=== PATIENT | male | born 1990 | race Caucasian/White ===

== ENCOUNTER 2024-05-10 10:42 | Outpatient (AMB) | payer BC, SELFPAY ==
--- NOTE | 2024-05-10 11:09 | A.OFFVIS_ITS ---
Vital Signs 05/10/24 11:24 Height 5 ft 4 in BMI Reason not done Patient refused/unable BP 115/70 Blood Pressure Location Lt brachial Position Sitting Respiration 18 Pulse 91 Pulse Source Pulse Oximeter Pulse Oximetry (%) 99 Oxygen Delivery Method Room Air Intake Visit Reasons: RA/ATC MR RECIEVED Intake Note: Patient presents for RA. bilateral pain on thumbs and bilateral elbow pain. Both wrist and elbows have been stiff in the am. Allergies cefaclor [From Ceclor] Allergy (Mild, Verified 05/10/24 11:16) Hives cefuroxime Allergy (Mild, Verified 05/10/24 11:15) Hives penicillin Allergy (Mild, Uncoded 05/10/24 11:15) Hives Medication List - Last Reviewed 05/10/24 by SARAH Troncoso acetaminophen (Tylenol Extra Strength) 500 mg PO QID PRN adalimumab (Humira(CF) Pen) 40 mg (0.4 mL) subcut Q14D cetirizine (Zyrtec) 10 mg PO DAILY PRN cholecalciferol (vitamin D3) 50 mcg PO DAILY famotidine 40 mg PO BID fexofenadine (Sabrina Allergy) 60 mg PO DAILY folic acid 1 mg PO DAILY hydroxyzine HCl 25 mg PO ONCE ibuprofen 200 mg PO Q6H PRN methotrexate sodium 20 mg PO QWEEK metronidazole 0.75% 1 appl topical DAILY ondansetron 4 mg PO Q6H PRN HPI HPI RA/ATC MR RECIEVED: Details: Last month he saw Dr. Castillo [facility] who aspirated his right knee. Synovial fluid studies were sent for cell count and crystal analysis. He reports that no gout was found. During this visit methotrexate was increased from 6 tablets once weekly to 8 tablets once weekly. He has found improve joint relief with increased dose. However, has noted that he has had tonsil stones daily, which was a rare occurrence in the past with only 2 prior to increasing methotrexate dose. He has intermittent ear pain and pain around the area of his tonsils. He had to urgent care visits that reported that he had fluid in his ears. No antibiotic was prescribed. He denies fevers, feeling fatigue, cough, dyspnea, new rash. [facility] Family History (Updated 05/10/24 @ 11:31 by SARAH Troncoso) Brother Mustapha-Danlos syndrome Social History (Updated 05/10/24 @ 11:30 by Heidi Jaffe [facility]) Household Members: Spouse Housing: House Alcohol intake: never Patient Tobacco Use Status: Never used Tobacco Review of Systems Const All systems reviewed & are unremarkable except as noted in HPI and below Physical Exam Vital Signs: Last Vital Signs Pulse 91 05/10/24 11:24 Resp 18 05/10/24 11:24 BP 115/70 05/10/24 11:24 Pulse Ox 99 05/10/24 11:24 Oxygen Delivery Method Room Air 05/10/24 11:24 Const Other: General: Comfortable CVS: RRR Respiratory: clear to auscultation bilaterally. Good respiratory effort Skin: No lesions seen MSK: Tender left lateral epicondyle without pain in elbow with resisted wrist flexion or extension. He also has synovitis of his left elbow with full range of motion. Tender left 1st MCP and IP with synovitis present. Rest of joints are nontender with good range of motion. Assessment & Plan Assessment & Plan (1) Rheumatoid arthritis: Comment: Better controlled with increasing methotrexate but he has had increasing ear pain and tonsil stones occurred daily, which is concerning. He had to urgent care evaluations and reports a physical exam finding of ear in his fluid but has not been treated for an infection. I have asked him to contact PCP to consider antibiotic in treatment for otitis media if appropriate. RA is not in remission at this time. We discussed add on therapy. Discussed treatment options with conventional DMARDs and TNF inhibitor. He prefers Humira over conventional DMARDs. Treatment with Humira is indicated for further control of RA. We discussed side effects, benefits and drug monitoring on Humira. Patient had concerns of past history of fevers, joint pain, feeling unwell with last fever a year ago. He was concerned about a Henry periodic syndrome. I recommended that if he has fevers, document time of day that he is having the fever as well as T-max and associated symptoms. We will then consider further evaluation if needed at that time. Since he has not had any fever in over a year, no further workup is necessary at this time. Code(s): M06.9 - Rheumatoid arthritis, unspecified Category: Medical Plan: He will try reducing dose of methotrexate to 17.5 mg once weekly for the next 2 weeks. If no improvement with reducing tonsil stone frequency, we will have to reduce methotrexate back to 15 mg once weekly. Humira PA. We will start Humira after he has PCP evaluation for ear pain and tonsil stones. Requesting labs done [facility] last month Labs ordered for monitoring on high-risk medication for next month. Patient prefers to have labs done locally to his home. Return to clinic in 3 months (2) Other ferry terminal agent (current) drug therapy: Code(s): Z79.899 - Other ferry terminal agent (current) drug therapy Category: Medical Plan: See above Orders: Orders Aspartate Amino Transferase 1 Month M06.9 - Rheumatoid arthritis, unspecified, Z79.899 - Other retirement (current) drug therapy Complete Blood Count Auto Diff 1 Month M06.9 - Rheumatoid arthritis, unspecified, Z79.899 - Other retirement (current) drug therapy Alanine Aminotransferase 1 Month M06.9 - Rheumatoid arthritis, unspecified, Z79.899 - Other ferry terminal agent (current) drug therapy C Reactive Protein 1 Month M06.9 - Rheumatoid arthritis, unspecified, Z79.899 - Other retirement (current) drug therapy Erythrocyte Sedimentation Rate 1 Month M06.9 - Rheumatoid arthritis, unspecified, Z79.899 - Other ferry terminal agent (current) drug therapy Creatinine 1 Month M06.9 - Rheumatoid arthritis, unspecified, Z79.899 - Other retirement (current) drug therapy Medications: New adalimumab (Humira(CF) Pen) Inject once SC every 14 days New PA needed. 40 mg (0.4 mL) subcut Q14D 2 ea 2RF Coding Level of Care Code Est Pt Level 5 (22340) Complex EM visit Add On G2211 Diagnoses Rheumatoid arthritis M06.9 Other retirement (current) drug therapy Z79.899 Time Spent (min) 40
[2024-05-10 11:24] VITALS: BP 115/70; PULSE 91; RESP 18; O2SAT 99
== END 2024-05-10 12:23 | disposition home or self-care (01) ==
PROVIDERS: PCP Registered Nurse; Visit Provider Internal Medicine Rheumatology
DX: M06.9 Rheumatoid arthritis, unspecified (principal); Z79.899 Other long term (current) drug therapy
CPT/HCPCS: 99215

== ENCOUNTER → 2024-06-23 09:02 | Outpatient (BNVA) | payer BC, SELFPAY | PROVIDERS: PCP Registered Nurse; Visit Provider Internal Medicine Rheumatology ==

== ENCOUNTER 2024-08-09 10:03 | Outpatient (AMB) | payer BC, SELFPAY ==
--- NOTE | 2024-08-09 10:04 | MHC.OFFVIS ---
Vital Signs 08/09/24 10:05 Height 5 ft 4 in BP 150/80 H Blood Pressure Location Lt brachial Position Sitting Pulse 79 Pulse Source Pulse Oximeter Pulse Oximetry (%) 99 Oxygen Delivery Method Room Air Comment pt refused Intake Visit Reasons: Follow Up 3mo Intake Note: Patient presents today for RA follow up Front Desk Auxiliary Required: No Accompanied by: Self / Same As Patient Allergies cefaclor [From Ceclor] Allergy (Mild, Verified 08/09/24 10:05) Hives cefuroxime Allergy (Mild, Verified 08/09/24 10:05) Hives penicillin Allergy (Mild, Uncoded 05/10/24 11:15) Hives HPI HPI Follow Up 3mo: Details: He has discomfort right ear likely secondary to tonsil stones. He has an upcoming appointment with ENT in August. Doing more sewing. Less swelling in hands. MS 0 min. Humira started 06/23/2024- On MTX 15mg once weekly and FA daily While on methotrexate he reports his eczema has resolved. He was diagnosed with eczema from his PCP's who has a special interest in Dermatology. He was managed by a sales and marketing representative for eczema but at 1 point also question psoriasis. He has never had a biopsy. It affects his palms. PFSH Family History Brother Mustapha-Danlos syndrome Social History Household Members: Spouse Housing: House Alcohol intake: never Patient Tobacco Use Status: Never used Tobacco Review of Systems Const All systems reviewed & are unremarkable except as noted in HPI and below Physical Exam Vital Signs: Last Vital Signs Pulse 79 08/09/24 10:05 BP 150/80 H 08/09/24 10:05 Pulse Ox 99 08/09/24 10:05 Oxygen Delivery Method Room Air 08/09/24 10:05 Const Other: General: Comfortable CVS: RRR Respiratory: clear to auscultation bilaterally. Good respiratory effort Skin: No lesions seen MSK: Chronic synovial thickening left 2nd MCP without tenderness on palpation. Left hand post exchange manager is stronger than right handgrip. No synovitis on elbows. full range of motion of upper extremities. Lower extremity range of motion is normal. No ankle or MTP tenderness. Assessment & Plan Assessment & Plan (1) Rheumatoid arthritis: Comment: Better controlled with increasing methotrexate but he has had increasing ear pain and tonsil stones. Methotrexate dose has been reduced to 15 mg once weekly. With addition of Humira he has had improvement in resolution of synovitis in his elbows and increased function with his hands. Rheumatology history: Seronegative inflammatory arthritis. He reports being diagnosed with eczema resolved on methotrexate. I am questioning if he had psoriasis, which was also question by sales and marketing representative he is on the past. MTX 12/2023- dose increased to 20 mg Q weekly caused tonsillar stones with infection. Methotrexate was then reduced to 15 mg once weekly 07/2024. Humira 06/23/2024- Code(s): M06.9 - Rheumatoid arthritis, unspecified Category: Medical Qualifiers: Rheumatoid arthritis location: multiple sites Rheumatoid factor presence: without rheumatoid factor Qualified Code(s): M06.09 - Rheumatoid arthritis without rheumatoid factor, multiple sites Plan: Continue Humira every other week Continue methotrexate 15 mg once weekly He will be following up with ENT for evaluation and management of tonsillar stones in August Labs for drug monitoring on high-risk medication ordered Return to clinic in 3 months (2) Other buttermaker continuous churn (current) drug therapy: Code(s): Z79.899 - Other retirement (current) drug therapy Category: Medical Plan: See above (3) Transaminitis: Code(s): R74.01 - Elevation of levels of liver transaminase levels Category: Medical Plan: Repeating liver function tests in 1 month Continue methotrexate 15 mg once weekly Continue Humira every other week Orders: Orders Aspartate Amino Transferase Today Z79.60 - parts counterman (current) use of unspecified immunomodulators and immunosuppressants Complete Blood Count Auto Diff Today Z79.60 - halfway (current) use of unspecified immunomodulators and immunosuppressants C Reactive Protein Today M06.9 - Rheumatoid arthritis, unspecified, Z79.899 - Other retirement (current) drug therapy Erythrocyte Sedimentation Rate Today M06.9 - Rheumatoid arthritis, unspecified, Z79.899 - Other buttermaker continuous churn (current) drug therapy Alanine Aminotransferase Today Z79.60 - halfway (current) use of unspecified immunomodulators and immunosuppressants Creatinine Today Z79.60 - halfway (current) use of unspecified immunomodulators and immunosuppressants Liver Panel 1 Month R74.01 - Elevation of levels of liver transaminase levels Medications: Changed From adalimumab (Humira(CF) Pen) Inject once SC every 14 days. Call [facility] to schedule teaching visit with nurse for 1st dose administration. 40 mg (0.4 mL) subcut Q14D 2 ea 2RF To adalimumab (Humira(CF) Pen) Inject once SC every 14 days. 40 mg (0.4 mL) subcut Q14D 2 ea 2RF Coding Level of Care Code Est Pt Level 4 (97917) Complex EM visit Add On G2211 Diagnoses Rheumatoid arthritis of multiple sites with negative rheumatoid factor M06.09 Rheumatoid arthritis location: multiple sites Rheumatoid factor presence: without rheumatoid factor Other buttermaker continuous churn (current) drug therapy Z79.899 Transaminitis R74.01
[2024-08-09 10:05] VITALS: BP 150/80; PULSE 79; O2SAT 99
--- OUTSIDE RECORDS SUMMARY | 2024-08-09 11:42 | XMS_ITS | Referral Summary ---
Author Organization [facility] Address [address] [place] [address] Care Team Providers Care Rotary Drier Operator Name Role Phone Lisset Diez COMMUNITY CENTER COORDINATOR Primary Care Provider [phone] Allergies Active Allergy Reactions Criticality Noted Date Comments Albuterol Palpitations High 02/01/2020 Other reaction(s): Myositis Cefaclor Hives 05/28/2022 Cephalexin Hives High 02/01/2020 Penicillins Hives High 07/01/2019 Sulfa (Sulfonamide Antibiotics) Hives High 02/01/2020 Medications acetaminophen (TYLENOL) 500 mg tablet Take 500 mg by mouth every 6 hours as needed. Active betamethasone dipropionate (DIPROSONE) 0.05 % cream SMARTSIG:spari ngly Topical Daily 3 Active cetirizine (ZyrTEC) 10 mg tablet Take 10 mg by mouth daily. Active diclofenac (VOLTAREN) 50 mg EC tablet SMARTSI Tablet(s) By Mouth Twice Daily PRN 3 Active famotidine (PEPCID) 40 mg tablet SMARTSI Tablet(s) By Mouth Twice Daily Active fluticasone propionate (FLONASE) 50 mcg/actuation nasal spray Administer 1 spray into affected nostril(s) daily. Active hydrOXYzine HCL (ATARAX) 25 mg tablet TAKE 1 TABLET BY MOUTH UP TO THREE TIMES PER DAY NEEDED FOR ANXIETY FOR 28 DAYS 3 Active ibuprofen (MOTRIN) 200 mg tablet Take 200 mg by mouth every 6 hours as needed. Active minoxidiL 5 % foam Apply topically to the affected area daily. 3 Active ondansetron (ZOFRAN ODT) 4 mg disintegrating tablet DISSOLVE 1 TABLET ON THE TONGUE TWICE DAILY FOR 14 DAYS NEEDED 2 Active testosterone undecanoate (Aveed) solution IM injection Inject 750 mg into the shoulder, thigh, or buttocks muscle as directed. 3 Active Social History Tobacco Use Types Packs/Day Years Used Date Smoking Tobacco: Never Smokeless Tobacco: Never Alcohol Use Standard Drinks/Week Comments Never 0 (1 standard drink = 0.6 oz pur e alcohol) Sex and Gender Information Value Date Recorded Sex Assigned at Not on file Legal Sex Male 8:38 AM EDT Gender Identity Not on file Sexual Orientation Not on file Last Filed Vital Signs Vital Sign Reading Time Taken Comments Blood Pressure - - Pulse - - Temperature - - Respiratory Rate - - Oxygen Saturation - - Inhaled Oxygen Concentration - - Weight 61.2 kg (135 lb) 01/28/2023 12:18 PM EDT Height 162.6 cm (5' 4 ) 01/28/2023 12:18 PM EDT Body Mass Index 23.17 01/28/2023 12:18 PM EDT Plan of Treatment Not on file Insurance BCBS OUT OF STATE PPO Care Teams Rotary Drier Operator Relationship Specialty Start Date End Date Lisset Diez NP [address] [place] [address] PCP - General 11/11/22
--- OUTSIDE RECORDS SUMMARY | 2024-08-09 11:42 | XMS_ITS | Clinical Summary ---
Author Organization [facility] Address [address] [place] [address] Care Team Providers Care Muck Miner Blasting Name Role Phone Lisset Diez STAFFING MANAGER Primary Care Provider [phone] Allergies Active Allergy Reactions Criticality Noted Date [...] or buttocks muscle as directed. 3 Active Family History Relation Name Status Comments Father Alive Mother Alive Social History Tobacco Use Types Packs/Day Years [...] 01/28/2023 12:18 PM EDT Plan of Treatment Health Maintenance Due Date Last Done Comments HIV Screening 1991 Hepatitis C Screening 1991 Varicella Vaccines (1 of 2 - 13+ 2-dose series) 2004 COVID-19 Vaccine ( - season) 2024 02/28/2022, 04/26/2021, 08/15/2020, Additional history exists Influenza Vaccine (#1) 2024 2, 04/26/2021, 03/20/2020, Additional history exists Alcohol/Substance Use Screening 06/15/2024 Depression Screening and Follow-Up 06/15/2024 Social Drivers of Health Annual Screening 06/15/2024 DTaP,Tdap,and Td Vaccines (9 - Td or Tdap) 08/27/2028 08/27/2018, 06/15/2011, 09/06/2008, Additional history exists RSV Vaccine (60+ years old and patients) (1 - 1-dose 75+ series) 2066 Hepatitis B Vaccines Completed 03/10/2001, 09/29/2000, 08/24/2000 Pneumococcal Vaccine: Pediatric (0-5 Years) and At-Risk Patients (6-50 Years) Aged Out No longer eligible based on patient's age to complete this topic Insurance BCBS OUT OF STATE PPO Care Teams Muck Miner Blasting Relationship Specialty Start Date End Date Lisset Diez NP [address] [place] [id number] PCP - General 11/11/22
--- OUTSIDE RECORDS SUMMARY | 2024-08-09 11:43 | XMS_ITS | Continuity of Care Document ---
Author Organization [facility], Physical Therapy, [facility] Address [address] [place] [address] Care Team Providers Care Bell Tier Name Role Phone GAURAV NOBLES Word Processor Operator HADLEY PHAN Certified Juvenile Probation Officer KEVIN ARNOLD Word Processor Operator [facility] Bioinformatics Developer [phone] ARISTEO PRATHER Mural Painter [phone] JORGE GODINEZ Word Processor Operator [phone] KEVIN ELLISON Primary Care Provider Assessment Encounter Date Assessment Date Assessment LastModified by Organization Details LastModified Time 07/29/2024 07/29/2024 OT visit # 8 Discharge Note A: Pt is a 33 year old referred to outpatient occupational therapy by Jennifer Diez NP with signs and symptoms consistent with: RA pain joints hands/wrists; hypermobility, recent onset of pain L lateral epicondyle Good progress overall in OT, joint pain low, started on new medication for RA; + MF testing; recommend loop scissors, re-fabricated R thumb stability splint for artwork. Will use R splint and continue with L elbow exercises at home and will contact OT w/ new referral if needed. Functional limitations include: decreased ability to lift/carry while caring for chickens/dogs/ca ts at home Response to treatment: good Goals: STG/LTG Time to Achieve Goal Progress per IE Comment STG 4 weeks Decrease pain to 2/10 max during ADL new STG 4 weeks Increase R elbow to 0 degrees extension new STG 4 weeks Independent knowledge of joint stability patterns during ADL new LTG 8 weeks new LTG 8 weeks new LTG 8 weeks Independent in comprehensive HEP. new Treatments may include (as appropriate/as indicated): Therapeutic exercise/Neuromu scular Reeducation/Ther apeutic Activities/ROM, flexibility, endurance, power, functional mechanics/postur es/activities; coordination/mot or planning/motor control; balance; proprioception; stability; self care/ADL management; home exercise instruction; modalities; taping; orthotics/splint fabrication/dee dee tamiko/management мария Not available 07/29/2024 15:01:46 Plan of Treatment Reminders Order Date Submit Date Provider Last Modified By Organization Details Last Modified Time Details Appointments Follow Up, 2024 01:45P M JENAE MarksP Not available Not available Not available Follow Up, 2024 09:00A M Kevin Ellison TARGET NETWORK ANALYST Not available Not available Not available Wellness Visit 2024 11:15A M Kevin Ellison TARGET NETWORK ANALYST Not available Not available Not available Lab None recorded. Referral None recorded. Procedures None recorded. Surgeries None recorded. Imaging None recorded. Medication Orders None recorded. Patient TargetsNo targets recorded. Patient Instructions Encounter Date Encounter Id Patient Instructions Last Modified By Organization Details Last Modified Time 07/29/2024 [id number] Access Code: [email or web address] URL: [email or web address] Date: 02/28/2024 Prepared by: Britt Parra Exercises - 4 Forearm Stretches - 2-3 x daily - 7 x weekly - 1 sets - 2 reps - 45 sec hold Access Code: [email or web address] URL: [email or web address] Date: 03/11/2024 Prepared by: Britt Parra Exercises - Thumb Strengthening Stabilization CMC - 1 x daily - 7 x weekly - 3 sets - 10 reps - 4 Forearm Stretches - 2-3 x daily - 7 x weekly - 1 sets - 2 reps - 45 sec hold - Thumb Strengthening Stabilization CMC - 1 x daily - 7 x weekly - 3 sets - 10 reps Access Code: [email or web address] URL: [email or web address] Date: 04/01/2024 Prepared by: Britt Parra Exercises - Thumb Strengthening Stabilization CMC - 1 x daily - 7 x weekly - 3 sets - 10 reps - Thumb Strengthening Stabilization CMC - 1 x daily - 7 x weekly - 3 sets - 10 reps - Thumb Strengthening Stabilization CMC First Dorsal Interossei - 1 x daily - 7 x weekly - 3 sets - 10 reps - Isometric Wrist Extension Pronated - 1 x daily - 7 x weekly - 3 sets - 10 reps - Seated Isometric Wrist Flexion Supinated with Manual Resistance - 1 x daily - 7 x weekly - 3 sets - 10 reps - Seated Isometric Forearm Supination - 1 x daily - 7 x weekly - 3 sets - 10 reps - Isometric Wrist Pronation - 1 x daily - 7 x weekly - 3 sets - 10 reps - Isometric Finger Flexion - 1 x daily - 7 x weekly - 3 sets - 10 reps - Seated Isometric Finger MP Extension - 1 x daily - 7 x weekly - 3 sets - 10 reps мария Not available 07/29/2024 10:17:22 Reason for Referral None Reported. Problems Name Problem SNOMED Code Status Onset Date Resolution Date Notes Provider Name and Address Organization Details Recorded Time Disorder of endocrine system 897053754 Active Transgende r. Pap/HPV negative ( 9). Lisset Diez NP [address] [place] [address] [place], [address], [facility] 3 12:12:10 Elevated blood-pres sure reading without diagnosis of hypertensi on 160597552 Active 2017 Carissa Sacnhez MD [address] [place] [address] [place], [address], [facility] 8 11:33:54 Eating disorder 72015411 Active 2017 Carissa Sanchez MD [address] [place] [address] [place], [address], [facility] 8 11:33:57 Anxiety 72516936 Active 2018 Lisset Diez NP [address] [place], [address], [facility] 3 08:43:53 Gastroesop hageal reflux disease 205436015 Active 2021 Mercedes Denton PA-C [address] [place] [address] Kishore grubbs, LUCI[place], [address], [facility] 2 13:21:24 Chronic gastritis 9918930 Active 2022 Dx on EGD Lisset Diez, [employer]ER [address] [place] [address], Kishore grubbs, [place], [address], [facility] 3 09:08:48 Eczema 99953147 Active 2022 Whole life using triamcinol one cream Lisset Diez NP [address] [place] [address], Kishore grubbs, [place], [address], [facility] 3 09:50:07 Hiatal hernia with gastroesop hageal reflux 815995418 Active 2022 Lisset Diez NP [address] [place] [address], Kishore grubbs, [place], [address], [facility] 3 13:41:58 Disorder of connective tissue 347152468 Active 2023 Maryam Diez DO [address] [place] [address] [place], [address], [facility] 4 14:09:58 Rheumatoid arthritis 54616046 Active 2023 Kevin Ellison [address] [place], [address], [facility] 4 13:25:16 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 Procedures Surgical History Date Name Laterality Status Provider Name and Address Organization Details Recorded Time 04/15/20 77452: Therapeutic Exercise completed RAIZA Milligan/L, [address], [address], [facility] 04/15/2024 11:13:30 04/15/20 68018: Therapeutic Activities - Direct 1:1 completed Britt Parra OTR/L, CHT [address] [place], [address], [facility] 04/15/2024 11:13:30 04/08/20 88194: Therapeutic Exercise completed Britt Parra, OTR/L, CHT [address] [place], [address], [facility] 04/08/2024 12:02:39 04/08/20 22743: Therapeutic Activities - Direct 1:1 completed Britt Linderitelli, OTR/L, CHT [address] [place], [address], [facility] 04/08/2024 12:02:56 04/01/20 09800: Therapeutic Exercise completed Britt Parra, OTR/L, CHT [address] [place], [address], [facility] 04/01/2024 10:36:29 04/01/20 19507: Manual Therapy completed Britt Parra, OTR/L, CHT [address] [place], [address], [facility] 04/01/2024 10:36:29 03/11/20 90059: Therapeutic Exercise completed Britt Parra, OTR/L, CHT [address] [place], [address], [facility] 03/11/2024 09:59:58 03/11/20 42481: Manual Therapy completed Britt Linderitemariaelenai, OTR/L, CHT [address] [place], [address], [facility] 03/11/2024 09:59:58 03/04/20 40506: Therapeutic Exercise completed Britt Parra, OTR/L, CHT [address] [place], [address], [facility] 03/04/2024 10:42:06 03/04/20 37680: Manual Therapy completed Britt Linderitelli, OTR/L, CHT [address] [place], [address], [facility] 03/04/2024 10:42:03 02/26/20 24 Smoking Cessation Counselling completed Britt Parra OTR/L, CHT [address] [place], [address], [facility] 02/25/2024 22:34:40 02/26/20 24 Physical Activity Counselling completed Britt Parra OTR/L, CHT [address] [place], [address], [facility] 02/25/2024 22:34:40 02/26/20 24 97214: OT Eval, Low Complexity completed Britt Parra OTR/L, CHT [address] [place] [address], [address], [facility] 02/25/2024 22:34:40 02/19/20 24 83555: Therapeutic Exercise completed Lisset Fontana DPT [address] [place] [address], [address], [facility] 02/19/2024 10:34:54 02/19/20 24 82509: Manual Therapy completed Lisset Fontana DPT [address] [place] [address], [address], [facility] 02/19/2024 10:34:54 02/19/20 24 Neuromuscular re-education completed Lisset Fontana DPT [address] [place] [address], [address], [facility] 02/19/2024 10:34:54 02/19/20 24 Treatment and Advice completed Lisset Fontana DPT [address] [place] [address], [address], [facility] 02/19/2024 10:34:54 02/09/20 24 39490: Therapeutic Exercise completed Lisset Fontana DPT [address] [place] [address], [address], [facility] 02/09/2024 10:11:32 02/09/20 24 31579: Manual Therapy completed Lisset Fontana DPT [address] [place], [address], [facility] 02/09/2024 10:10:58 02/09/20 24 Neuromuscular re-education completed Lisset Fontana DPT [address] [place], [address], [facility] 02/09/2024 10:11:02 02/09/20 24 Treatment and Advice completed Lisset Fontana DPT [address] [place], [address], [facility] 02/09/2024 10:09:07 02/02/20 24 68761: Therapeutic Exercise completed Lisset Fontana DPT [address] [place], [address], [facility] 02/07/2024 23:13:01 02/02/20 24 70054: Manual Therapy completed Lisset Fontana DPT [address] [place], [address], [facility] 02/07/2024 23:14:16 02/02/20 24 Neuromuscular re-education completed Lisset Fontana DPT [address] [place], [address], [facility] 02/07/2024 23:12:57 02/02/20 24 Treatment and Advice completed Lisset Fontana DPT [address] [place], [address], [facility] 02/07/2024 23:12:25 01/26/20 24 78959: Therapeutic Exercise completed Lisset Fontana DPT [address] [place], [address], [facility] 01/26/2024 11:07:53 01/26/20 24 01395: Manual Therapy completed Lisset Fontana DPT [address] [place], [address], [facility] 01/26/2024 11:07:34 01/26/20 24 Neuromuscular re-education completed Lisset Fontana DPT [address] [place], [address], [facility] 01/26/2024 11:07:44 01/26/20 24 Treatment and Advice completed Lisset Fontana DPT [address] [place], [address], [facility] 01/26/2024 11:07:21 01/19/20 24 36669: Therapeutic Exercise completed Lisset CEZAR Fontana [address] [place], [address], [facility] 01/22/2024 10:12:08 01/19/20 24 73733: Manual Therapy completed Lissetreyes Fontana DPT [address] [place], [address], [facility] 01/22/2024 10:12:39 01/19/20 24 Treatment and Advice completed Lissetreyes Fontana DPT [address] [place], [address], [facility] 01/22/2024 10:12:05 Imaging Results None recorded. Procedure Notes None recorded. Medical Equipment None Reported. Allergies Allergen ID Allergen Name Allergen Category Reaction Reaction Severity Criticality Documentation Date Start Date Code Code System Note Provider Name and Address Organization Details Recorded Time 338600 Product containin g penicilli n (product) medicatio n hives Not available Not available 07/31/2014 03726 8001 SNOMED Katt Christiansen MA [facility] 5 08:53:35 540831 amoxicill in medicatio n hives Not available Not available 07/31/2014 723 RxNorm Katt Christiansen MA [facility] 5 08:53:35 534851 Ceftin medicatio n hives Not available Not available 07/31/2014 52862 6 RxNorm Katt Christiansen MA [facility] 5 08:53:35 705409 Ceclor medicatio n hives Not available Not available 07/31/201402798 5 RxNorm Katt Christiansen MA [facility] 5 08:53:35 150381 albuterol medicatio n tachycard ia moderate Not available 03/21/2020 435 RxNorm back spasm s Larisa Ervin LPN [facility] 0 08:24:58 710695 Substance with sulfonami de structure and antibacte rial mechanism of action (substanc e) medicatio n Not available Not available Not available 03/15/2024 25267 8003 SNOMED ? as child Brenda Toth, RMA rosalinda, [facility] 4 11:26:10 Medications Name Sig Start Date Stop Date Status Note LastModified by Organization Details LastModified Time cyclobenz aprine 10 mg tablet TK 1 T PO TID FOR 7 DAYS 10/29 completed Not Available Not Available Not Available ivermecti n 3 mg tablet active Not Available Not Available Not Available cromolyn 100 mg/5 mL oral concentra te 05/06 completed Jose Francisco whelan --- 4 not currentl y, may in future Not Available Not Available Not Available prednison e 10 mg tablet 12/02 completed Not Available Not Available Not Available desoximet asone 0.25 % topical cream PLEASE SEE ATTACHED FOR DETAILED DIRECTIO NS active Not Available Not Available No t Available BD Insulin Syringe 1 mL 25 x 1 05/24 completed Not Available Not Available Not Available azithromy tierney 250 mg tablet TAKE 2 TABLETS BY MOUTH TODAY, THEN TAKE 1 TABLET DAILY FOR 4 DAYS 12/13 completed Not Available Not Available Not Available acetazola mide ER 500 mg capsule,e xtended release TAKE 1 CAPSULE BY MOUTH EVERY DAY 02/06 completed Not Available Not Available Not Available ofloxacin 0.3 % eye drops INSTILL 10 DROPS INTO AFFECTED EAR TWICE A DAY FOR 7 DAYS 08/29 completed Not Available Not Available Not Available benzonata te 200 mg capsule TK 1 C PO TID FOR 10 DAYS PRN 02/17 completed not usinfg 0 [facility] Not Available Not Available Not Available valacyclo vir 1 gram tablet Take 1 tablet every 8 hours by oral route for 7 days. 10/05 completed Not Available Not Available Not Available hydrocodo ne 5 mg-acetam inophen 325 mg tablet TAKE 1 TABLET BY MOUTH EVERY 4 - 6 HOURS NEEDED FOR PAIN MAY CAUSE DROWSINE SS 04/29 completed Not Available Not Available Not Available fluconazo le 200 mg tablet TAKE 1 TABLET BY MOUTH EVERY WEEK active Not Available Not Available No t Available sucralfat e 1 gram tablet TAKE 1 TABLET BY MOUTH 2-4 TIMES A DAY ON EMPTY STOMACH 05/25 completed not taking Not Available Not Available Not Available famotidin e 40 mg tablet TAKE 1 TABLET BY MOUTH TWICE A DAY active Not Available Not Available No t Available prednison e 20 mg tablet TAKE 2 TABLETS BY MOUTH DAILY FOR 2 DAYS 11/07 completed Not Available Not Available Not Available prednison e 5 mg tablet PLEASE SEE ATTACHED FOR DETAILED DIRECTIO NS 03/15 completed Not Available Not Available Not Available pimecroli mus 1 % topical cream 10/05 completed Not Available Not Available Not Available topiramat e 25 mg tablet 08/28 completed Not Available Not Available Not Available omeprazol e 40 mg capsule,d elayed release TAKE 1 CAPSULE BY MOUTH EVERY DAY active Not Available Not Available No t Available minoxidil 2.5 mg tablet TAKE 1 TABLET BY MOUTH EVERY DAY active Not Available Not Available No t Available triamcino lone acetonide 0.1 % topical cream APPLY A THIN LAYER TOPICALL Y TO AFFECTED AREA TWICE DAILY 01/20 completed stopped 12/11/22 Not Available Not Available Not Available Hypodermi c [place] 23 gauge x 1 03/21 completed Not Available Not Available Not Available ketorolac 10 mg tablet TAKE 1 TABLET BY MOUTH EVERY 6 HOURS NEEDED FOR PAIN 08/28 completed Not Available Not Available Not Available dexametha sone 0.5 mg/5 mL oral solution PLEASE SEE ATTACHED FOR DETAILED DIRECTIO NS 11/26 completed No longer taking Not Available Not Available Not Available BD Regular Bevel [place] 18 gauge x 1 USE DIRECTED WEEKLY 01/06 completed Not Available Not Available Not Available propranol ol 10 mg tablet Take 1 tablet by mouth as needed for anxiety; can take up to two tablets per day. 01/20 completed Not Available Not Available Not Available famotidin e 20 mg tablet TAKE 1 TABLET BY MOUTH TWICE A DAY ORALLY 10/25 completed Not Available Not Available Not Available lorazepam 0.5 mg tablet TK 1 T PO QHS 09/01 completed Not Available Not Available Not Available methotrex ate sodium 2.5 mg tablet Take 7 tablets every week by oral route. active Not Available Not Available No t Available tamsulosi n 0.4 mg capsule TAKE 1 CAPSULE BY MOUTH EVERY DAY 08/28 completed Not Available Not Available Not Available hydrocort isone-kathi tic acid 1 %-2 % ear drops INSTILL 2 DROPS INTO AFFECTED EAR(S) 4 TIMES A DAY 05/25 completed Not using 02/06/22 PP Not Available Not Available Not Available benzonata te 100 mg capsule 02/17 completed not usinfg 0 [facility] Not Available Not Available Not Available doxycycli ne monohydra te 100 mg capsule TAKE 1 CAPSULE BY MOUTH TWICE A DAY 06/19 completed Not Available Not Available Not Available erythromy tierney 5 mg/gram (0.5 %) eye ointment APPLY 1/2 INCH STRIP TO AFFECTED EYELID THREE TIMES DAILY FOR 7 DAYS 10/05 completed Not Available Not Available Not Available triamcino lone acetonide 0.1 % topical ointment APPLY THIN LAYER EXTERNAL LY TO THE AFFECTED AREA TWICE DAILY 05/25 completed Not Available Not Available Not Available nystatin 100,000 unit/gram topical cream CLAUDIA EXT AA BID 08/26 completed Not Available Not Available Not Available hyoscyami ne 0.125 mg sublingua l tablet 02/06 completed Not Available Not Available Not Available metronida zole 0.75 % topical cream active Not Available Not Available Not Available betametha sone dipropion ate 0.05 % topical cream APPLY SPARINGL Y TO AFFECTED AREA EVERY DAY 10/05 completed Not Available Not Available Not Available omeprazol e 20 mg capsule,d elayed release TAKE 1 CAPSULE (20 MG TOTAL) BY MOUTH DAILY BEFORE DINNER 10/05 completed Not Available Not Available Not Available diclofena c sodium 75 mg tablet,de layed release TAKE ONE TABLET TWICE A DAY 08/29 completed Not Available Not Available Not Available folic acid 1 mg tablet TAKE 1 TABLET DAILY active Not Available Not Available No t Available hydroxyzi ne HCl 25 mg tablet TAKE 1 TABLET BY MOUTH UP TO THREE TIMES PER DAY NEEDED FOR ANXIETY FOR 28 DAYS active Not Available Not Available No t Available codeine 10 mg-guaife nesin 100 mg/5 mL oral liquid TAKE 10 ML EVERY 4 6 HOURS BY ORAL ROUTE NEEDED. 02/17 completed Not using anymore Not Available Not Available Not Available ranitidin e 150 mg capsule Take 1 Capsule Daily 10/16 completed Not Available Not Available Not Available mupirocin 2 % topical ointment APPLY A SMALL AMOUNT TO THE AFFECTED AREA BY TOPICAL ROUTE 2 TIMES PER DAY X 5-7 DAYS active Not Available Not Available No t Available diclofena c sodium 50 mg tablet,de layed release TAKE 1 TABLET BY MOUTH TWICE A DAY NEEDED active Not Available Not Available No t Available epinephri ne 0.3 mg/0.3 mL injection , auto-inje ctor FOR ALLERGIC REACTION INJECT ONE PEN, MAY REPEAT X1 AFTER 5 TO 15 MIN. GO TO EMERGENC Y ROOM active Not Available Not Available No t Available testoster one cypionate 200 mg/mL intramusc ular oil INJECT 0.38ML INTO THE MUSCLE EVERY WEEK 12/27 completed Not Available Not Available Not Available estradiol 0.01% (0.1 mg/gram) vaginal cream INSERT 1 GRAM VAGINALL Y 2 TIMES A WEEK AT BEDTIME 06/24 completed Not Available Not Available Not Available albuterol sulfate HFA 90 mcg/actua tion aerosol inhaler Inhale 2 puffs every 4 hours by inhalati on route. 02/17 completed Not using anymore Not Available Not Available Not Available ketoconaz ole 2 % topical cream CLAUDIA EXT AA QD 05/13 completed 05/13/17 -pt no longer taking.s g Not Available Not Available Not Available ondansetr on 4 mg disintegr ating tablet Place 1 tablet twice a day by translin gual route as needed for 14 days. active Not Available Not Available No t Available clotrimaz ole 1 % topical cream APPLY 1 APPLICAT ION TWICE A DAY BY TOPICAL ROUTE FOR 14 DAYS. 05/25 completed not taking 03/07/22 mK Not Available Not Available Not Available doxycycli ne hyclate 100 mg tablet TAKE 1 TABLET BY MOUTH TWICE A DAY 07/23 completed Not Available Not Available Not Available erythromy tierney-benzo yl peroxide 3 %-5 % topical gel active Not Available Not Available Not Available clindamyc in 1 % lotion active Not Available Not Available Not Available cyclobenz aprine 5 mg tablet TAKE 1 TABLET BY MOUTH THREE TIMES A DAY FOR 5 DAYS 02/01 completed Not Available Not Available Not Available ciproflox acin 0.3 %-dexamet hasone 0.1 % ear drops,brown pension INSTILL 4 DROPS INTO AFFECTED EAR(S) TWICE A DAY FOR 7 DAYS 12/27 completed Not Available Not Available Not Available BD Regular Bevel [place] 25 gauge x 5/8 USE DIRECTED WEEKLY 04/18 completed Not Available Not Available Not Available levalbute rol HFA 45 mcg/actua tion aerosol inhaler Inhale 2 puffs every 6 hours by inhalati on route as needed. 03/21 completed Not Available Not Available Not Available BD SafetyGli de Needle 18 gauge x 1 1/2 USE DIRECTED WEEKLY 01/06 completed Not Available Not Available Not Available BD SafetyGli de Needle 21 gauge x 1 Use as directed weekly 01/06 completed Not Available Not Available Not Available minoxidil 5 % topical foam 02/01 completed 4 prescrib ed by [facility] Not Available Not Available Not Available OptiChamb er Isha [facility] spacer USE DIRECTED . 03/21 completed Not Available Not Available Not Available testoster one undecanoa te 750 mg/3 mL (250mg/mL ) intramusc ular solution Inject 3 mL by intramus cular route. active injectio n every 10 weeks at [facility] Not Available Not Available Not Available Flulaval Quad 6568-5019 60 mcg (15 mcg x 4)/0.5 mL IM suspensio n active Not Available Not Available Not Available Afluria 9236-4515 (PF) 45 mcg (15 mcg x 3)/0.5 mL IM syringe TO BE ADMINIST ERED BY PHARMACI ST FOR IMMUNIZA TION active Not Available Not Available No t Available Easy Touch FlipLock Needle 18 gauge x 1 USE DIRECTED WEEKLY 01/06 completed Not Available Not Available Not Available ferrous sulfate 220 mg (44 mg iron)/5 mL oral elixir TK 5 ML IN ORANGE JUICE PO QAM 30 MIN B KERWIN 05/24 completed patient d/c 05/24/20 18 [email or web address] Not Available Not Available Not Available Humira(CF ) Pen 40 mg/0.4 mL subcutane ous kit active Not Available Not Available Not Available Xyosted 75 mg/0.5 mL subcutane ous auto-inje ctor INJECT 0.5 ML (75 MG TOTAL) UNDER THE SKIN EVERY 7 DAYS. active Not Available Not Available No t Available Flucelvax Quad (PF) 60 mcg (15 mcg x 4)/0.5 mL IM syringe VACCINAT ION ADMINIST ERENoelle BY KVNG SANCHEZ 11/15 completed Not Available Not Available Not Available Paxlovid 300 mg (150 mg x 2)-100 mg tablets in a dose pack TAKE DIRECTED 06/19 completed Not Available Not Available Not Available Vitals Date Recorded Body height Body height Oxygen saturation Oxygen saturation in Arterial blood by Pulse oximetry Heart rate Systolic blood pressure Diastolic blood pressure Provider Name and Address Organization Details Last Updated DateTime 5 162.56 cm 162.56 cm 98 % 98 % 78 /min 92 mm[Hg] 60 mm[Hg] ANDIE Conner [facility] 5 15:32:42 Social History Question Answer Notes LastModified by Organizat ion Details LastModified Time Tobacco Smoking Status [facility]oker [facility] 07/31/2014 08:56:21 What Is Your Level Of Alcohol Consumption? None [email or web address] Information not available 09/01/2017 Do You Wear A Helmet When Biking? Yes Information not available 10/29/2018 What Is Your Level Of Caffeine Consumption? Occasional Chocolate - Not Coffee Or Tea, No Soda Information not available 03/15/2024 How Much Tobacco Do You Chew? None Information not available 08/14/2015 Are You Currently Employed? Yes [email or web address] Information not available 02/06/2021 What Type Of Diet Are You Following? REGULAR Information not available 07/31/2014 Which Illicit Or Recreational Drugs Have You Used? Mj Gummies Information not available 03/15/2024 Do You Or Have You Ever Used E-cigarettes Or Vape? 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 No Information not available 01/06/2023 How Many Days In The Past Year Have You Had A Heavy Drinking Consumption (4+ Female, 5+ Male)? 0 Information not available 07/31/2014 Are There Any Guns Present In Your Home? No [facility] Information not available 07/31/2014 Do You Use Insect Repellent Routinely? Yes [email or web address] Information not available 02/06/2021 Live Alone Or With Others? With Others Information not available 07/31/2014 Marital Status [email or web address] Informatio n not available 11/21/2019 Mosquito Repellent Used Routinely No Information not available 10/29/2018 What Was The Date Of Your Most Recent Tobacco Screening? 08/05/2024 Information not available 08/05/2024 How Many Children Do You Have? 0 Information not available 07/31/2014 What Is Your Relationship Status? [email or web address] Information not available 02/06/2021 Do You Use Your Seat Belt Or Car Seat Routinely? Yes [email or web address] Information not available 02/06/2021 Seat Belts Used Routinely Yes [facility] Information not available 07/31/2014 Are You Sexually Active? No Recently Had Negative STI (Tapestry) In 2013 Information not available 07/31/2014 Smoke Alarm In Home Yes [facility] Information not available 07/31/2014 Do You Have Smoke And Carbon Monoxide Detectors In Your Home? Yes [email or web address] Information not available 02/06/2021 Are You Passively Exposed To Smoke? No [email or web address] Information not available 02/06/2021 Do You Or Have You Ever Used Smokeless Tobacco? Never Used Smokeless Tobacco Information not available 05/02/2019 How Much Tobacco Do You Smoke? No Information not available 01/30/2020 What Types Of Sporting Activities Do You Participate In? None Information not available 10/29/2018 General Stress Level Medium Information not available 10/29/2018 Do You Use Any Illicit Or Recreational Drugs? No Information not available 08/13/2021 Do You Use Sunscreen Routinely? Yes [email or web address] Information not available 02/06/2021 Do You Or Have You Ever Used Any Other Forms Of Tobacco Or Nicotine? No Information not available 08/13/2021 Sex: Female Functional Status Question Answer Note LastModified by Organization D etails LastModified Time What is your exercise level? Moderate [email or web address] Information not available 02/06/2021 Mental Status None recorded. Family History Relationship Description Onset Age of this Age Resolved Age Notes LastModified by Organization Details LastModified Time Maternal Grandmother Malignant neoplastic disease [email or web address] Not available 2014 09:08:48 Father No current problems or disability [email or web address] Not available 10/14 16:41:58 Mother No current problems or disability [email or web address] Not available 10/14 16:41:58 Notes:No FHx of DM. No known FHx of colon CA. No family hx of OA or osteoporosis Brother 2 - Mustapha Danlos, schizophrenia, genetic/chromosomal facial deformities Brother 1 - Bipolar, homeless. Father - genetically no ear on R side Mom & Dad - healthy Medical History No medical history recorded. Immunizations Vaccine Type Date Status Note Provider Nam e and Address Organization Details Recorded Time Influenza, split virus, quadrivalent, PF 6 completed Not Available [facility] 02:21:07 Influenza, split virus, quadrivalent, preservative 4 completed LUCIE Lange [facility] 07/31/2014 08:53:35 Td(adult) unspecified formulation 2 completed ANDIE Conner [facility] 03/14/2024 14:57:02 Td(adult) unspecified formulation 4 [facility] 09:07:27 OPV 7 [facility] 09:07:27 Hib, unspecified formulation 2 completed [facility] 05/[facility]/2015 09:07:27 Hep A, unspecified formulation 5 completed LUCIE Hankins [facility] 05/21/2015 09:07:27 meningococcal ACWY, unspecified formulation 4 [facility] 05/[facility]/2015 09:07:27 DTaP 2 completed Kenishacharlotte [facility]LUCIE [facility] 09:07:27 Hib, unspecified formulation 3 completed [facility] 05/21/2015 09:07:27 DTaP 2 completed [facility] 05/[facility]/2015 09:07:27 DTaP 2 completed [place]otte [facility] 05/[facility]/2015 09:07:27 OPV 2 completed [facility] 05/[facility]/2015 09:07:27 HPV, unspecified formulation 7 completed Solangeelisabethcharlotte [facility]E [facility] 05/[facility]/2015 09:07:27 OPV 2 completed Solangeelisabethcharlotte [facility]E [facility] 05/[facility]/2015 09:07:27 MMR 3 completed [place]arlotte [facility]E [facility] 05/21/2015 09:07:27 HPV, unspecified formulation 7 completed [facility] 05/21/2015 09:07:27 Hep A, unspecified formulation 4 completed [facility] 05/[facility]/2015 09:07:27 MMR 7 completed Solangeelisabethcahrlotte [facility]LUCIE [facility] 05/21/2015 09:07:27 DTaP 3 completed Solangeelisabethcharlotte [facility]CIE [facility] 05/21/2015 09:07:27 Hep B, unspecified formulation 1 completed [facility] 05/21/2015 09:07:27 Hib, unspecified formulation 2 completed [facility] 05/21/2015 09:07:27 Hep B, unspecified formulation 1 [facility] 05/21/2015 09:07:27 DTaP 7 completed [facility] 05/21/2015 09:07:27 Tdap 9 completed [facility] 05/21/2015 09:07:27 HPV, unspecified formulation 7 completed [facility] 05/21/2015 09:07:27 Hep B, unspecified formulation 1 completed Solangejennifer Vidal [facility]/2015 09:07:27 Hib, unspecified formulation 2 completed [facility] 05/21/2015 09:07:27 OPV 3 completed [facility]idal [facility] 05/21/2015 09:07:27 influenza, unspecified formulation 9 completed [facility] 05/21/2015 09:07:27 Influenza, split virus, trivalent, preservative 5 completed Katt Christiansen [facility] 08/14/2015 10:07:04 Influenza, split virus, quadrivalent, PF 8 completed Not Available [facility] 07/02/2019 02:33:02 Tdap 9 completed Not Available [facility] 07/02/2019 02:23:36 Influenza, split virus, quadrivalent, preservative 7 completed [facility] 14:57:02 Influenza, split virus, quadrivalent, preservative 9 completed [facility] 03/14/2024 14:57:02 Influenza, split virus, quadrivalent, preservative 0 completed Larisa Ervin LPN [facility] 03/21/2020 08:26:28 COVID-19, mRNA, LNP-S, PF, 100 mcg/0.5mL dose or 50 mcg/0.25mL dose 1 completed [facility]oth [facility] 03/14/2024 14:57:02 COVID-19, mRNA, LNP-S, PF, 100 mcg/0.5mL dose or 50 mcg/0.25mL dose 1 completed [facility] 03/14/2024 14:57:02 COVID-19, mRNA, LNP-S, PF, 30 mcg/0.3 mL dose 1 completed [facility] 03/14/2024 14:57:02 Influenza, split virus, quadrivalent, preservative 1 completed [facility] 03/14/2024 14:57:02 Influenza, MDCK, quadrivalent, PF 2 completed [facility]oth [facility] 03/14/2024 14:56:46 COVID-19, mRNA, LNP-S, bivalent, PF, 30 mcg/0.3 mL dose 2 [facility] 03/04/2022 08:08:57 Influenza, split virus, quadrivalent, PF 3 completed Brenda [facility]oth [facility] 03/14/2024 14:57:02 Influenza, split virus, trivalent, preservative 2 completed Brenda [facility]oth [facility] 03/14/2024 14:56:46 Influenza, MDCK, quadrivalent, PF 7 completed Brenda [facility]oth [facility] 03/14/2024 14:57:02 Influenza, MDCK, quadrivalent, PF 9 completed [facility] 03/14/2024 14:57:02 COVID-19, mRNA, LNP-S, PF, 100 mcg/0.5mL dose or 50 mcg/0.25mL dose 1 completed ANDIE Conner [facility] 03/14/2024 14:57:02 COVID-19, mRNA, LNP-S, PF, 100 mcg/0.5mL dose or 50 mcg/0.25mL dose 1 completed ANDIE Conner [facility] 03/14/2024 14:57:02 COVID-19, mRNA, LNP-S, PF, 50 mcg/0.5 mL 3 completed ANDIE Conner [facility] 03/14/2024 14:57:02 Td(adult) unspecified formulation 2 completed ANDIE Conner [facility] 03/14/2024 14:57:02 Influenza, split virus, quadrivalent, PF 3 [facility] 03/14/2024 14:57:02 Influenza, split virus, quadrivalent, PF 1 [facility] 03/14/2024 14:57:02 Pneumococcal conjugate PCV20, polysaccharide [id number] conjugate, adjuvant, PF 4 [facility] 06/24/2024 09:04:00 COVID-19, mRNA, LNP-S, PF, 50 mcg/0.5 mL 4 [facility] 06/24/2024 09:04:00 Influenza, split virus, trivalent, PF 4 [facility] 06/24/[facility] 09:04:00 Past Encounters Encounter ID Performer Location Encounter Start Date Encounter Closed Date Diagnosis/Indication Diagnosis SNOMED-CT Code Diagnosis ICD10 Code Diagnosis Note [id number] DO LASHONDA Jacobson, [facility], [address] [place] [address] 07/08/2024 08:35:33 07/08/2024 09:09:00 Plantar wart of left foot [id number] 2962284 B07.0 pared down and treated with liquid nitrogenpt tolerated wellf/u 2 weeks for recheck Lightheadedness [id number] R42 suspect due to reactive hypoglycem iapt to work on eating more regular snacks, higher protein meals History of eating disorder [id number] 90896 Z86.59 hx arfid-type eating that has improved over the past 6 yearsworki ng w/ nutritioni st [id number] Maryam Diez DO , [facility], [address] [place] [address] 07/12/2024 11:58:10 07/13/2024 15:19:14 Acute otitis media 7406960 H65.01 early stages of R AOMpt w/ allergies to PCN and cephalospo rins, had allergy testing confirming plan to hold MTX tonightmon itor sx x 48hrsif improving, great! no need to take antibiotic sif sx not improving/ worsening can start doxypt to notify rheumatolo gist about ear infection and antibiotic s, ? 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 consider referral to allergy and immunology for further discussion was previously in care w/ Mesha Rosenthal and she is now self-payha s appt w/ ENT end of august [id number] DO LASHONDA Jacobson, [facility], [address] [place] [address] 07/19/2024 10:27:12 07/19/2024 11:11:05 Plantar wart of left foot [id number] 1911061 B07.0 pared down and treated with liquid nitrogenpt tolerated wellf/u 2 weeks for recheck Apnea 3917850 R06.81 will order repeat sleep studyif inconclusi ve, consider mouth device through dentist Acute otitis media 79646 03 H65.01 improvingf inish doxyadvise d effusion can take 4-6 weeks to resolve [id number] Ashley Spicer NP FP, [facility], [address] [place] [address] 07/23/2024 11:13:46 07/23/2024 11:43:17 Dysfunction of right eustachian tube 0296430802 106456 H69.91 no infection- reassuredc /t flonaseadv ised 3-4 days of afrin then d/jose ENT appt next month- advised to call this week with forecasted weather may be able to take advantage of last minute cancellati onf/u prn [id number] Britt Parra , OTR/L, [facility], [address] [address] 07/29/2024 10:08:33 08/01/2024 15:24:15 Pain of left wrist [id number] 06642 M25.532 Pain of right wrist 3169 725336 59068 M25.531 [id number] OLIVIA Marks , [facility], [address] [place] [address] 07/29/2024 15:27:29 08/04/2024 12:58:17 Plantar wart of left foot [id number] 8901488 B07.0 pared down and treated with liquid nitrogenpt tolerated wellf/u 2 weeks for recheck Dysfunctio n of eustachian tube 31946632 H69.90 can use flonaseadv ised can take 4-6 weeks for fluid to reabsorb after effusionha s ENT appt upcoming Health Concerns Section Related Observation LastModified by Organization Detai ls LastModified Time None Recorded Concern Status LastModified by Organization Details LastModified Time None Recorded Payers Encounter Date Sequence Insurance Name Policy Number Policy Martines Covered Member ID Martines Member ID Guarantor Name 07/29/2024 1 [employer] [employer] [place] [id number] Bigg Montalvo [id number] Bigg Montalvo Notes Date Note Type Note Provider Name and Address Organization Details Recorded Time 07/29/2024 text/html 07/29/2024 planta r wart treatment ears still feeling blocked somewhat OLIVIA Marks [address] [place], [address], [facility] 07/29/2024 17:46:53 07/29/2024 text/html Physical Therapy History of Present IllnessReported bypatient.History:33 y.o. referred to OT with c/o pain in joints due to new dx of RA and hypermobility. CC is weakness during the day during ADL and pain in bilateral elbows due to recent RA flare. 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
--- OUTSIDE RECORDS SUMMARY | 2024-08-09 11:44 | XMS_ITS | Continuity of Care Document ---
Author Organization [facility], , [facility], OFFICE Address [address] [place] [address] Care Team Providers Care Managed Care Provider Name Role Phone GAURAV NOBLES Licensed Sales Assistant HADLEY PHAN Supervisor [employer] KEVIN ARNOLD Licensed Sales Assistant [phone] [facility] Wool Washer Feeder ARISTEO PRATHER Log Handling Equipment Operator [phone] JORGE GODINEZ Licensed Sales Assistant KEVIN ELLISON Primary Care Provider Assessment No assessment recorded. Plan of Treatment Reminders Order Date Submit Date Provider Last Modified By Organization Details Last Modified Time Details Appointments Follow Up, 2024 01:45P OLIVIA Cummins Not available Not available Not available Follow Up, 2024 09:00A OLIVIA Cummins Not available Not available Not available Wellness Visit 2024 11:15A OLIVIA Cummins Not available Not available Not available Lab None recorded. Referral None recorded. Procedures None recorded. Surgeries None recorded. Imaging None recorded. Medication Orders None recorded. Patient TargetsNo targets recorded. Patient InstructionsNo instructions recorded. Reason for Referral None Reported. 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 Pap/HPV negative ( 9). Lisset Diez NP [address] [place] [address], [place], [address] , [facility] 12:12:10 Elevated blood-pres sure reading without diagnosis of hypertensi on 954603715 Active 2017 Carissa Sanchez MD [address] [place], [place] [address], [address], [facility] 8 11:33:54 Eating disorder 74829143 Active 2017 Carissa Sanchez MD [address] [place], [place] [address], [place], [address], [facility] 11:33:57 Anxiety 38994517 Active 2018 Lisset Diez NP [address] [place], [place] [address], [address], [facility] 08:43:53 Gastroesop hageal reflux disease 037410562 Active 2021 Mercedes Denton PA-C [address] [place], [place] [address], [address], [facility] 13:21:24 Chronic gastritis 9633681 Active 2022 Dx on EGD Lisset Diez NP [address] [place], [place] [address], [address], [facility] 09:08:48 Eczema 18627357 Active 2022 Whole life using triamcinol one cream Lisset Diez NP [address] [place], [place] [address], [address], [facility] 09:50:07 Hiatal hernia with gastroesop hageal reflux 643859563 Active 2022 Lisset Diez NP [address] [place], [place] [address], [address], [facility] 13:41:58 Disorder of connective tissue 982311957 Active 2023 Maryam Diez DO [address] [place], [address], [facility] 14:09:58 Rheumatoid arthritis 63195504 Active 2023 Kevin McCadden, [address] [place], [address], [facility] 13:25:16 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 Procedures Surgical History Date Name Laterality Status Provider Name and Address Organization Details Recorded Time 04/15/20 98809: Therapeutic Exercise completed Britt Parra, OTR/L, CHT [address] [place] [address], [address], [facility] 04/15/2024 11:13:30 04/15/20 57766: Therapeutic Activities - Direct 1:1 completed Britt Parra, OTR/L, CHT [address] [place] [address], [address], [facility] 04/15/2024 11:13:30 04/08/20 48275: Therapeutic Exercise completed Britt Parra, OTR/L, CHT [address] [place] [address], [address], [facility] 04/08/2024 12:02:39 04/08/20 75957: Therapeutic Activities - Direct 1:1 completed Britt Parra, OTR/L, CHT [address] [place], [address], [facility] 04/08/2024 12:02:56 04/01/20 57940: Therapeutic Exercise completed Britt Parra, OTR/L, CHT [address] [place], [address], [facility] 04/01/2024 10:36:29 04/01/20 22609: Manual Therapy completed Britt Linderitejose daniel, OTR/L, CHT [address] [place], [address], [facility] 04/01/2024 10:36:29 09/27/20 24 50520: Therapeutic Exercise completed Britt Parra, OTR/L, CHT [address] [place], [address], [facility] 03/11/2024 09:59:58 03/11/20 24 44640: Manual Therapy completed Britt Parra, OTR/L, CHT [address] [place], [address], [facility] 03/11/2024 09:59:58 03/04/20 24 17985: Therapeutic Exercise completed Britt Parra, OTR/L, CHT [address] [place], [address], [facility] 03/04/2024 10:42:06 03/04/20 24 09239: Manual Therapy completed Britt Parra, OTR/L, CHT [address] [place], [address], [facility] 03/04/2024 10:42:03 02/26/20 24 Smoking Cessation Counselling completed Britt Parra, OTR/L, CHT [address] [place], [address], [facility] 02/25/2024 22:34:40 02/26/20 24 Physical Activity Counselling completed Britt Parra, OTR/L, CHT [address] [place], [address], [facility] 02/25/2024 22:34:40 02/26/20 24 74004: OT Eval, Low Complexity completed Britt Parra, OTR/L, CHT [address] [place], [address], [facility] 02/25/2024 22:34:40 02/19/20 24 69365: Therapeutic Exercise completed Lisset Fontana DPT [address] [place], [address], [facility] 02/19/2024 10:34:54 02/19/20 24 24820: Manual Therapy completed Lisset Fontana DPT [address] [place], [address], [facility] 02/19/2024 10:34:54 02/19/20 24 Neuromuscular re-education completed Lisset Fontana DPT [address] [place], [address], [facility] 02/19/2024 10:34:54 02/19/20 24 Treatment and Advice completed Lisset Fontana DPT [address] [place], [address], [facility] 02/19/2024 10:34:54 02/09/20 24 24718: Therapeutic Exercise completed Lisset Fontana DPT [address] [place], [address], [facility] 02/09/2024 10:11:32 02/09/20 24 62090: Manual Therapy completed Lisset Fontana DPT [address] [place], [address], [facility] 02/09/2024 10:10:58 02/09/20 24 Neuromuscular re-education completed Lisset Fontana DPT [address] [place], [address], [facility] 02/09/2024 10:11:02 02/09/20 24 Treatment and Advice completed Lisset Fontana DPT [address] [place], [address], [facility] 02/09/2024 10:09:07 02/02/20 24 95662: Therapeutic Exercise completed Lisset Fontana DPT [address] [place], [address], [facility] 02/07/2024 23:13:01 02/02/20 24 32356: Manual Therapy completed Lisset Fontana DPT [address] [place], [address], [facility] 02/07/2024 23:14:16 02/02/20 24 Neuromuscular re-education completed Lisset Fontana DPT [address] [place], [address], [facility] 02/07/2024 23:12:57 02/02/20 24 Treatment and Advice completed Lisset Fontana DPT [address] [place], [address], [facility] 02/07/2024 23:12:25 01/26/20 24 05534: Therapeutic Exercise completed Lisset Fontana DPT [address] [place], [address], [facility] 01/26/2024 11:07:53 01/26/20 24 56019: Manual Therapy completed Lisset Fontana DPT [address] [place], [address], [facility] 01/26/2024 11:07:34 01/26/20 24 Neuromuscular re-education completed Lisset Fontana DPT [address] [place], [address], [facility] 01/26/2024 11:07:44 01/26/20 24 Treatment and Advice completed Lisset Fontana DPT [address] [place], [address], [facility] 01/26/2024 11:07:21 01/19/20 24 14814: Therapeutic Exercise completed Lisset Fontana DPT [address] [place], [address], [facility] 01/22/2024 10:12:08 01/19/20 24 24969: Manual Therapy completed Lisset Fontana DPT [address] [place], [address], [facility] 01/22/2024 10:12:39 01/19/20 24 Treatment and Advice completed Lisset Fontana DPT [address] [place], [address], [facility] 01/22/2024 10:12:05 Imaging Results None recorded. Procedure Notes None recorded. Medical Equipment None Reported. Allergies Allergen ID Allergen Name Allergen Category Reaction Reaction Severity Criticality Documentation Date Start Date Code Code System Note Provider Name and Address Organization Details Recorded Time 988427 Product containin g penicilli n (product) medicatio n hives Not available Not available 07/31/2014 22094 8001 [facility] 5 08:53:35 269630 amoxicill in medicatio n hives Not available Not available 07/31/2014 723 RxNorm Katt Christiansen MA [facility] 5 08:53:35 922371 Ceftin medicatio n hives Not available Not available 07/31/2014 88904 6 [facility]Norm [facility] 5 08:53:35 459858 Ceclor medicatio n hives Not available Not available 07/31/201447832 5 RxNorm [facility] 5 08:53:35 069824 albuterol medicatio n tachycard ia moderate Not available 03/21/2020 435 RxNorm back spasm s Larisa Chanro, SLATE TRIMMER [facility] 0 08:24:58 249708 Substance with sulfonami de structure and antibacte rial mechanism of action (substanc e) medicatio n Not available Not available Not available 03/15/2024 26049 8003 SNOMED ? as child Brenda Toth, A [facility] 4 11:26:10 Medications Name Sig [...] Available Not Available Not Available Hypodermi c [place] 23 gauge x 1 03/21 completed Not Available Not Available Not Available ketorolac 10 mg tablet TAKE 1 TABLET BY MOUTH EVERY 6 HOURS NEEDED FOR PAIN 03/16 /2021 completed Not Available Not Available Not Available dexametha sone 0.5 mg/5 mL oral solution PLEASE SEE ATTACHED FOR DETAILED DIRECTIO NS 11/26 completed No longer taking Not Available Not Available Not Available BD Regular Bevel [place] 18 gauge x 1 USE DIRECTED WEEKLY [...] Not Available Not Available Not Available erythromy tiereny 5 mg/gram (0.5 %) eye ointment APPLY [...] Not Available Not Available BD Regular Bevel [place] 25 gauge x 5/8 USE DIRECTED WEEKLY [...] foam 02/01 completed 4 prescrib ed by [facility] Not Available Not Available Not Available OptiChamb er Isha [facility] spacer USE DIRECTED . 03/21 completed Not Available Not Available Not Available testoster one undecanoa te 750 mg/3 mL (250mg/mL ) intramusc ular solution Inject 3 mL by intramus cular route. active injectio n every 10 [facility] Not Available Not Available Not Available Flulaval Quad 8594-4448 60 mcg (15 mcg x 4)/0.5 mL IM suspensio n active Not Available Not Available Not Available Afluria (PF) 45 mcg (15 mcg x 3)/0.5 mL IM syringe TO BE ADMINIST ERED BY [employer] FOR IMMUNIZA TION active Not Available Not [...] 4)/0.5 mL IM syringe VACCINAT ION ADMINIST ERED BY [employer] ST 11/15 completed Not Available Not Available Not Available Paxlovid 300 mg (150 mg x 2)-100 mg tablets in a dose pack TAKE DIRECTED 06/19 completed Not Available Not Available Not Available Vitals Date Recorded Body height Body temperature Heart rate Systolic blood pressure Diastolic blood pressure Provider Name and Address Organization Details Last Updated DateTime 08/05/2024 162.56 cm 97.9 [degF] 84 /min 98 mm[Hg] 60 mm[Hg] Rd Gallo CMA [facility] 12:15:10 Social History Question Answer Notes LastModified by Organizat ion Details LastModified Time Tobacco Smoking Status Never Smoker LUCIE Lange, [facility] 07/31/2014 08:56:21 What Is Your Level Of Alcohol Consumption? None [email or web address] Information not available 09/01/2017 Do You Wear A Helmet When Biking? Yes Information not available 10/29/2018 What Is Your Level Of Caffeine Consumption? Occasional Chocolate - Not Coffee Or Tea, No Soda Information not available 03/15/2024 How Much Tobacco Do You Chew? None Information not available 08/14/2015 Are You Currently Employed? Yes [email or web address] Information not available 02/06/2021 What Type Of [...] Any Guns Present In Your Home? No Information not available 07/31/2014 Do You Use Insect Repellent Routinely? Yes [email or web address] Information not available 02/06/2021 Live Alone Or With Others? With Others Information not available 07/31/2014 Marital Status [email or web address] Informatio n not available 11/21/2019 Mosquito Repellent Used Routinely No Information not available 10/29/2018 What Was The Date Of Your Most Recent Tobacco Screening? 08/05/2024 Information not available 08/05/2024 How Many Children Do You Have? 0 Information not available 07/31/2014 What Is Your Relationship Status? [email or web address] Information not available 02/06/2021 Do You Use Your Seat Belt Or Car Seat Routinely? Yes [email or web address] Information not available 02/06/2021 Seat Belts Used Routinely [email or web address] Information not available 07/31/2014 Are You Sexually Active? No Recently Had Negative STI (Tapestry) In 2013 Information not available 07/31/2014 Smoke Alarm In Home Yes [email or web address] Information not available 07/31/2014 Do You Have Smoke And Carbon Monoxide Detectors In Your Home? Yes [email or web address] Information not available 02/06/2021 Are You Passively Exposed To Smoke? No [email or web address] Information not available 02/06/2021 Do You Or [...] 08/13/2021 Do You Use Sunscreen Routinely? Yes [email or web address] Information not available 02/06/2021 Do You Or Have You Ever Used Any Other Forms Of Tobacco Or Nicotine? No Information not available 08/13/2021 Sex: Female Functional Status Question Answer Note LastModified by Organization D etails LastModified Time What is your exercise level? Moderate [email or web address] Information not available 02/06/2021 Mental Status None recorded. Family History Relationship Description Onset Age of this Age Resolved Age Notes LastModified by Organization Details LastModified Time Maternal Grandmother Malignant neoplastic disease [email or web address] Not available 2014 09:08:48 Father No current problems or disability [email or web address] Not available 10/14 16:41:58 Mother No current problems or disability [email or web address] Not available 10/14 16:41:58 Notes:No FHx of [...] virus, quadrivalent, PF 6 completed Not Available [facility] 07/02/2019 02:21:07 Influenza, split virus, quadrivalent, preservative 4 completed LUCIE Lange [facility] 07/31/2014 08:53:35 Td(adult) unspecified formulation 2 completed Brenda Janey, [facility] 03/14/2024 14:57:02 Td(adult) unspecified formulation 4 completed [facility] 05/21/2015 09:07:27 OPV 7 completed Solangeelisabethcharlotte PetitLUCIE sanzSp[facility] 05/21/2015 09:07:27 Hib, unspecified formulation 2 completed [facility] 05/21/2015 09:07:27 Hep A, unspecified formulation 5 completed [facility] 05/21/2015 09:07:27 meningococcal ACWY, unspecified formulation 4 completed [facility] 05/21/2015 09:07:27 DTaP 2 completed [facility] 05/21/2015 09:07:27 Hib, unspecified formulation 3 completed [facility] 05/21/2015 09:07:27 DTaP 2 completed [facility] 05/21/2015 09:07:27 DTaP 2 completed [facility] 05/21/2015 09:07:27 OPV 2 completed [facility] 05/21/2015 09:07:27 HPV, unspecified formulation 7 completed [facility] 05/21/2015 09:07:27 OPV 2 completed Deborah Vidal [facility] 05/21/2015 09:07:27 MMR 3 completed [facility] 05/21/2015 09:07:27 HPV, unspecified formulation 7 completed [facility] 05/21/2015 09:07:27 Hep A, unspecified formulation 4 completed Deborah Vidal [facility] 05/21/2015 09:07:27 MMR 7 completed Deborah Vidal [facility] 05/21/2015 09:07:27 DTaP 3 completed Deborah Vidal [facility] 05/21/2015 09:07:27 Hep B, unspecified formulation 1 completed Deborah Vidal [facility] 05/21/2015 09:07:27 Hib, unspecified formulation 2 completed Deborah Vidal [facility] 05/21/2015 09:07:27 Hep B, unspecified formulation 1 completed Deborah Vidal [facility] 05/21/2015 09:07:27 DTaP 7 completed Deborah Vidal [facility] 05/21/2015 09:07:27 Tdap 9 completed Deborah Vidal [facility] 05/21/2015 09:07:27 HPV, unspecified formulation 7 completed Deborah Vidal [facility] 05/21/2015 09:07:27 Hep B, unspecified formulation 1 completed Deborah Vidal [facility] 05/21/2015 09:07:27 Hib, unspecified formulation 2 completed Deobrah Vidal [facility] 05/21/2015 09:07:27 OPV 3 completed Deborah Vidal [facility] 05/21/2015 09:07:27 influenza, unspecified formulation 9 completed Deborah Vidal [facility] 05/21/2015 09:07:27 Influenza, split virus, trivalent, preservative 5 completed [facility] 08/14/2015 10:07:04 Influenza, split virus, quadrivalent, PF 8 completed Not Available [facility] 07/02/2019 02:33:02 Tdap 9 completed Not Available [facility] 07/02/2019 02:23:36 Influenza, split virus, quadrivalent, preservative 7 completed Brenda Toth [facility] 03/14/2024 14:57:02 Influenza, split virus, quadrivalent, preservative 9 completed Brenda Toth R[facility] 03/14/2024 14:57:02 Influenza, split virus, quadrivalent, preservative 0 completed Larisa Ervin LPN [facility] 03/21/2020 08:26:28 COVID-19, mRNA, LNP-S, PF, 100 mcg/0.5mL dose or 50 mcg/0.25mL dose 1 completed Brenda Toth [facility] 03/14/2024 14:57:02 COVID-19, mRNA, LNP-S, PF, 100 mcg/0.5mL dose or 50 mcg/0.25mL dose 1 completed GREGORIO ConnerA [facility] 03/14/2024 14:57:02 COVID-19, mRNA, LNP-S, PF, 30 mcg/0.3 mL dose 1 completed Brenda Toth [facility] 03/14/2024 14:57:02 Influenza, split virus, quadrivalent, preservative 1 completed Brenda Toth R[facility] 03/14/2024 14:57:02 Influenza, MDCK, quadrivalent, PF 2 completed Brenda Toth R[facility] 03/14/2024 14:56:46 COVID-19, mRNA, LNP-S, bivalent, PF, 30 mcg/0.3 mL dose 2 completed Rinku Waters MA [facility] 03/04/2022 08:08:57 Influenza, split virus, quadrivalent, PF 3 completed Brenda Toth R[facility] 03/14/2024 14:57:02 Influenza, split virus, trivalent, preservative 2 completed Brenda Toth R[facility] 03/14/2024 14:56:46 Influenza, MDCK, quadrivalent, PF 7 completed Brenda Toth R[facility] 03/14/2024 14:57:02 Influenza, MDCK, quadrivalent, PF 9 completed Brenda Toth R[facility] 03/14/2024 14:57:02 COVID-19, mRNA, LNP-S, PF, 100 mcg/0.5mL dose or 50 mcg/0.25mL dose 1 completed Brenda Toth [facility] 03/14/2024 14:57:02 COVID-19, mRNA, LNP-S, PF, 100 mcg/0.5mL dose or 50 mcg/0.25mL dose 1 completed Brenda [facility]oth [facility] 03/14/2024 14:57:02 COVID-19, mRNA, LNP-S, PF, 50 mcg/0.5 mL 3 completed Brenda Toth [facility] 03/14/2024 14:57:02 Td(adult) unspecified formulation 2 completed Brenda Toth R[facility] 03/14/2024 14:57:02 Influenza, split virus, quadrivalent, PF 3 completed Brenda Toth [facility] 03/14/2024 14:57:02 Influenza, split virus, quadrivalent, PF 1 completed Brenda Toth [facility] 03/14/2024 14:57:02 Pneumococcal conjugate PCV20, polysaccharide GXL399 conjugate, adjuvant, PF 4 completed [facility] 06/24/2024 09:04:00 COVID-19, mRNA, LNP-S, PF, 50 mcg/0.5 mL 4 completed [facility] 06/24/2024 09:04:00 Influenza, split virus, trivalent, PF 4 completed [facility] 06/24/2024 09:04:00 Past Encounters Encounter ID Performer Location Encounter Start Date Encounter Closed Date Diagnosis/Indication Diagnosis SNOMED-CT Code Diagnosis ICD10 Code Diagnosis Note [id number] DO LASHONDA Jacobson, [facility], [address] [place] [address] 07/08/2024 08:35:33 07/08/2024 09:09:00 Plantar wart of left foot [id number] 1746325 B07.0 pared down and treated with liquid nitrogenpt tolerated wellf/u 2 weeks for recheck Lightheadedness 47337483 8 R42 suspect due to reactive hypoglycem iapt to work on eating more regular snacks, higher protein meals History of eating disorder 3685408899 63437 Z86.59 hx arfid-type eating that has improved over the past 6 yearsworki ng w/ nutritioni st [id number] DO LASHONDA Jacobson, [facility], [address] [place] [address] 07/12/2024 11:58:10 07/13/2024 15:19:14 Acute otitis media 3427277 H65.01 early stages of R AOMpt w/ [...] course of doxy 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 consider referral to allergy and immunology for further discussion was previously in care w/ Mesha Rosenthal and she is now self-payha s appt w/ ENT end of august [id number] Maryam Diez DO FP, [facility], [address] [place] [address] 07/19/2024 10:27:12 07/19/2024 11:11:05 Plantar wart of left foot 8070745752 8050961 B07.0 pared down and treated with liquid nitrogenpt tolerated wellf/u 2 weeks for recheck Apnea 1862884 R06.81 will order repeat sleep studyif inconclusi ve, consider mouth device through dentist Acute otitis media 52505 03 H65.01 improvingf inish doxyadvise d effusion can take 4-6 weeks to resolve [id number] Ashley Spicer NP , [facility], [address] [place] [address] 07/23/2024 11:13:46 07/23/2024 11:43:17 Dysfunction of right eustachian tube 9101697380 421394 H69.91 no infection- reassuredc /t flonaseadv ised 3-4 days of afrin then d/jose ENT appt next month- advised to call this week with forecasted weather may be able to take advantage of last minute cancellati onf/u prn [id number] Britt Parra , OTR/L, [facility], [address] [address] 07/29/2024 10:08:33 08/01/2024 15:24:15 Pain of left wrist 4785057508 95415 M25.532 Pain of right wrist 3169 559681 89917 M25.531 [id number] OLIVIA Marks , [facility], [address] [place] [address] 07/29/2024 15:27:29 08/04/2024 12:58:17 Plantar wart of left foot 0396369112 2998344 B07.0 pared down and treated with liquid nitrogenpt tolerated wellf/u 2 weeks for recheck Dysfunctio n of eustachian tube 67206053 H69.90 can use flonaseadv ised can take 4-6 weeks for fluid to reabsorb after effusionha s ENT appt upcoming [id number] Kevin Ellison, OLIVIA , [facility], [address] [place] [address] 08/05/2024 12:05:31 08/05/2024 12:46:15 Plantar wart of left foot [id number] B07.0 pared down and treated with liquid nitrogenpt tolerated wellf/u 2 weeks for recheck Dysfunctio n of eustachian tube [id number] H69.90 persistent throat pain, blocked feeling in ears after 2 ear infections has ENT appt upcoming Selective immunoglobulin A deficiency [id number] D80.2 consider referral to allergy and immunology for further discussion , may be contributi ng to recurrent tonsil stones and ear infections was previously in care w/ Meshajacquie Rosenthal and she is now self-payha s appt w/ ENT end of august Tonsillitis [id number] J03 .90 recurrent tonsilitis vs tonsil stonesunab le to visualize tonsils on examencour aged frequent warm water gargles, chlorasept ic throat sprayrevie wed findings for peritonsil ar abscess/ba cterial infection - present to ER if sx present Patient immunocompromised [id number] D84.9 due to immunosupp ressant meds Rheumatoid arthritis [id number] M06.9 seronegati ve RAin care w/ rheumtrial ing humira + methotrexa te Disorder o f connective tissue [id number] M35.9 saw genetics and KR. neg for genetic markers for EDS but does have family hx. dx w/ undifferen tiated connective tissue d/o Health Concerns Section Related Observation LastModified by Organization Detai ls LastModified Time None Recorded Concern Status LastModified by Organization Details LastModified Time None Recorded Payers Encounter Date Sequence Insurance Name Policy Number Policy Martines Covered Member ID Martines Member ID Guarantor Name 08/05/2024 1 [employer] [employer] [place] [id number] Bigg Montalvo [id number] Bigg Montalvo Notes Date Note Type Note Provider Name and Address Organization Details Recorded Time 08/05/2024 text/html Pt presenting fo r f/u of plantar wart and throat pain Pt states he has been having sharp pain in tonsils/base of tongue yesterday and today. Worse yesterday and today has improved some. Pain in throat described as sharp/stabbing. Neck feels puffy Denies trouble swallowing, voice changes, fever/chills. He has been c/o tonsil stones and tonsil pain since end of MarchI have seen him many times for this concern. Each time have been unable to visualize tonsilsmallampati class IIIalso concern for sleep apnea, he reports snoring, pauses in breathing at night, especially when lying on backhe has sleep study upcoming. and appt w/ ENT in 2 weeks also has had 2 ear infections since March (05/17/24 and 07/12/24), both responded to treatment with doxycycline but he still has some blocked feeling and fluid behind TMs started humira 06/23/24 Kevin Ellison, CLIENT REPRESENTATIVE [address] [place] [address], [place], [id number], [facility] [place] 08/05/2024 18:00:04
--- OUTSIDE RECORDS SUMMARY | 2024-08-09 11:44 | XMS_ITS | Continuity of Care Document ---
Author Organization [facility], , [facility], OFFICE Address [address] [place] [address] Care Team Providers Care Quality Head Name Role Phone GAURAV NOBLES Sales Coach HADLEY PHAN Shovel Log Loader Operator KEVIN ARNOLD Sales Coach [facility] Fence Manufacture Supervisor ARISTEO PRATHER Laborer General JORGE GODINEZ Sales Coach KEVIN ELLISON Primary Care Provider Assessment No [...] Details Recorded Time Disorder of endocrine system 420642684 Active Transgende r. Pap/HPV negative ( 9). Lisset Diez NP [address] [place] [address], [place], [address] , [facility] 3 12:12:10 Elevated blood-pres sure reading without diagnosis of hypertensi on 329452078 Active 2017 Carissa Sanchez MD [address] [place], [place] [address], [address], [facility] 8 11:33:54 Eating disorder 43509688 Active 2017 Carissa Sanchez MD [address] [place], [place] [address], [place], [address], [facility] 8 11:33:57 Anxiety 73993663 Active 2018 Lisset Diez NP [address] [place], [place] [address], [address], [facility] 3 08:43:53 Gastroesop hageal reflux disease 597138472 Active 2021 Mercedes Denton PA-C [address] [place], [place] [address], [address], [facility] 2 13:21:24 Chronic gastritis 8601789 Active 2022 Dx on EGD Lisset Diez NP [address] [place], [place] [address], [address], [facility] 3 09:08:48 Eczema 88616584 Active 2022 Whole life using triamcinol one cream Lisset Diez NP [address] [place], [place] [address], [address], [facility] 3 09:50:07 Hiatal hernia with gastroesop hageal reflux 877238364 Active 2022 Lisset Diez NP [address] [place], [place] [address], [address], [facility] 3 13:41:58 Disorder of connective tissue 083691695 Active 2023 Maryam Diez DO [address] [facility] [place], [address], [facility] 4 14:09:58 Rheumatoid arthritis 87282677 Active 2023 Kevin McCadden, [address] [place], [address], [facility] 13:25:16 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 Procedures Surgical History Date Name Laterality Status Provider Name and Address Organization Details Recorded Time 04/15/20 20268: Therapeutic Exercise completed Britt Parra, OTR/L, CHT [address] [place] [address], [address], [facility] 04/15/2024 11:13:30 04/15/20 08199: Therapeutic Activities - Direct 1:1 completed Britt Parra, OTR/L, CHT [address] [place] [address], [address], [facility] 04/15/2024 11:13:30 04/08/20 21778: Therapeutic Exercise completed Britt Parra, OTR/L, CHT [address] [place] [address], [address], [facility] 04/08/2024 12:02:39 04/08/20 90046: Therapeutic Activities - Direct 1:1 completed Britt Parra, OTR/L, CHT [address] [place], [address], [facility] 04/08/2024 12:02:56 04/01/20 33116: Therapeutic Exercise completed Britt Parra, OTR/L, CHT [address] [place], [address], [facility] 04/01/2024 10:36:29 04/01/20 40952: Manual Therapy completed Britt Linderitejose daniel, OTR/L, CHT [address] [place], [address], [facility] 04/01/2024 10:36:29 09/27/20 24 85219: Therapeutic Exercise completed Britt Parra, OTR/L, CHT [address] [place], [address], [facility] 03/11/2024 09:59:58 03/11/20 24 67983: Manual Therapy completed Britt Parra, OTR/L, CHT [address] [place], [address], [facility] 03/11/2024 09:59:58 03/04/20 24 69816: Therapeutic Exercise completed Britt Parra, OTR/L, CHT [address] [place], [address], [facility] 03/04/2024 10:42:06 03/04/20 24 52758: Manual Therapy completed Britt Parra, OTR/L, CHT [address] [place], [address], [facility] 03/04/2024 10:42:03 02/26/20 24 Smoking Cessation Counselling completed Britt Parra, OTR/L, CHT [address] [place], [address], [facility] 02/25/2024 22:34:40 02/26/20 24 Physical Activity Counselling completed Britt Parra, OTR/L, CHT [address] [place], [address], [facility] 02/25/2024 22:34:40 02/26/20 24 63873: OT Eval, Low Complexity completed Britt Parra, OTR/L, CHT [address] [place], [address], [facility] 02/25/2024 22:34:40 02/19/20 24 29543: Therapeutic Exercise completed Lisset Fontana DPT [address] [place], [address], [facility] 02/19/2024 10:34:54 02/19/20 24 26217: Manual Therapy completed Lisset Fontana DPT [address] [place], [address], [facility] 02/19/2024 10:34:54 02/19/20 24 Neuromuscular re-education completed Lisset Fontana DPT [address] [place], [address], [facility] 02/19/2024 10:34:54 02/19/20 24 Treatment and Advice completed Lisset Fontana DPT [address] [place], [address], [facility] 02/19/2024 10:34:54 02/09/20 24 95994: Therapeutic Exercise completed Lisset Fontana DPT [address] [place], [address], [facility] 02/09/2024 10:11:32 02/09/20 24 76703: Manual Therapy completed Lisset Fontana DPT [address] [place], [address], [facility] 02/09/2024 10:10:58 02/09/20 24 Neuromuscular re-education completed Lisset Fontana DPT [address] [place], [address], [facility] 02/09/2024 10:11:02 02/09/20 24 Treatment and Advice completed Lisset Fontana DPT [address] [place], [address], [facility] 02/09/2024 10:09:07 02/02/20 24 03008: Therapeutic Exercise completed Lisset Fontana DPT [address] [place], [address], [facility] 02/07/2024 23:13:01 02/02/20 24 38209: Manual Therapy completed Lisset Fontana DPT [address] [place], [address], [facility] 02/07/2024 23:14:16 02/02/20 24 Neuromuscular re-education completed Lisset Fontana DPT [address] [place], [address], [facility] 02/07/2024 23:12:57 02/02/20 24 Treatment and Advice completed Lisset Fontana DPT [address] [place], [address], [facility] 02/07/2024 23:12:25 01/26/20 24 99390: Therapeutic Exercise completed Lisset Fontana DPT [address] [place], [address], [facility] 01/26/2024 11:07:53 01/26/20 24 15498: Manual Therapy completed Lisset Fontana DPT [address] [place], [address], [facility] 01/26/2024 11:07:34 01/26/20 24 Neuromuscular re-education completed Lisset Fontana DPT [address] [place], [address], [facility] 01/26/2024 11:07:44 01/26/20 24 Treatment and Advice completed Lisset Fontana DPT [address] [place], [address], [facility] 01/26/2024 11:07:21 01/19/20 24 32813: Therapeutic Exercise completed Lisset Fontana DPT [address] [place], [address], [facility] 01/22/2024 10:12:08 01/19/20 24 60311: Manual Therapy completed Lisset Fontana DPT [address] [place], [address], [facility] 01/22/2024 10:12:39 01/19/20 24 Treatment and Advice completed Lisset Fontana DPT [address] [place], [address], [facility] 01/22/2024 10:12:05 Imaging Results None recorded. Procedure Notes None recorded. Medical Equipment None Reported. Allergies Allergen ID Allergen Name Allergen Category Reaction Reaction Severity Criticality Documentation Date Start Date Code Code System Note Provider Name and Address Organization Details Recorded Time 723055 Product containin g penicilli n (product) medicatio n hives Not available Not available 07/31/2014 07026 8001 [facility] 08:[facility]35 595900 amoxicill in medicatio n hives Not available Not available 07/31/2014 723 RxNorm Katt Christiansen MA [facility] 5 08:53:35 661161 Ceftin medicatio n hives Not available Not available 07/31/2014 88735 6 [facility] 5 08:53:35 002731 Ceclor medicatio n hives Not available Not available 07/31/201451866 5 [facility] 5 08:53:35 173417 albuterol medicatio n tachycard ia moderate Not available 03/21/2020 435 RxNorm back spasm s Larisa Chanro, SCREW MACHINE OPERATOR [facility] 0 08:24:58 737673 Substance with sulfonami de structure and antibacte rial mechanism of action (substanc e) medicatio n Not available Not available Not available 03/15/2024 71915 8003 SNOMED ? as child Brenda Toth, A [facility] 4 11:26:10 Medications Name Sig Start Date [...] Available Not Available Not Available Hypodermi c Konawa 23 gauge x 1 03/21 completed Not [...] Not Available Not Available BD Regular Bevel Kon[place] 18 gauge x 1 USE DIRECTED WEEKLY [...] Not Available Not Available BD Regular Bevel [place] 25 gauge x 5/8 USE DIRECTED WEEKLY [...] foam 02/01 completed 4 prescrib ed by [facility] Not Available Not Available Not Available OptiChamb er Isha [facility] spacer USE DIRECTED . 03/21 completed Not Available Not Available Not Available testoster one undecanoa te 750 mg/3 mL (250mg/mL ) intramusc ular solution Inject 3 mL by intramus cular route. active injectio n every 10 weeks at [facility] Not Available Not Available Not Available Flulaval Quad 4260-0062 60 mcg (15 mcg x 4)/0.5 mL IM suspensio n active Not Available Not Available Not Available Afluria (PF) 45 mcg (15 mcg x 3)/0.5 mL IM syringe TO BE ADMINIST ERED BY [employer] FOR IMMUNIZA TION active Not Available Not [...] IM syringe VACCINAT ION ADMINIST ERED BY [employer] ST 11/15 completed Not Available Not Available [...] /min 92 mm[Hg] 60 mm[Hg] ANDIE Conner [facility] 5 15:32:42 Social History Question Answer Notes LastModified by Organizat ion Details LastModified Time Tobacco Smoking Status Never Smoker LUCIE Lange, [facility] 07/31/2014 08:56:21 What Is Your Level [...] available 08/14/2015 Are You Currently Employed? Yes [email or web address] Information not available 02/06/2021 What Type Of [...] Do You Use Insect Repellent Routinely? Yes [email or web address] Information not available 02/06/2021 Live Alone Or With Others? With Others Information not available 07/31/2014 Marital Status [email or web address] Informatio n not available 11/21/2019 Mosquito Repellent Used Routinely No Information not available 10/29/2018 What Was The Date Of Your Most Recent Tobacco Screening? 08/05/2024 Information not available 08/05/2024 How Many Children Do You Have? 0 Information not available 07/31/2014 What Is Your Relationship Status? [email or web address] Information not available 02/06/2021 Do You Use Your Seat Belt Or Car Seat Routinely? Yes [email or web address] Information not available 02/06/2021 [email or web address] Information not available 07/31/2014 Are You Sexually Active? No Recently Had Negative STI (Tapestry) In 2013 Information not available 07/31/2014 Smoke Alarm In Home [facility] Information not available 07/31/2014 Do You Have Smoke And Carbon Monoxide Detectors In Your Home? Yes [email or web address] Information not available 02/06/2021 Are You Passively Exposed To Smoke? No [email or web address] Information not available 02/06/2021 Do You Or [...] 08/13/2021 Do You Use Sunscreen Routinely? Yes [email or web address] Information not available 02/06/2021 Do You Or Have You Ever Used Any Other Forms Of Tobacco Or Nicotine? No Information not available 08/13/2021 Sex: Female Functional Status Question Answer Note LastModified by Organization D etails LastModified Time What is your exercise level? Moderate [email or web address] Information not available 02/06/2021 Mental Status None recorded. Family History Relationship Description Onset Age of this Age Resolved Age Notes LastModified by Organization Details LastModified Time Maternal Grandmother Malignant neoplastic disease [email or web address] Not available 2014 09:08:48 Father No current problems or disability [email or web address] Not available 10/14 16:41:58 Mother No current problems or disability [email or web address] Not available 10/14 16:41:58 Notes:No FHx of [...] virus, quadrivalent, preservative 4 completed LUCIE Lange [facility] 07/31/2014 08:53:35 Td(adult) unspecified formulation 2 completed [facility] 03/14/2024 14:57:02 Td(adult) unspecified formulation 4 completed [facility]idal [facility] 05/21/2015 09:07:27 OPV 7 completed [facility] 05/21/2015 09:07:27 Hib, unspecified formulation 2 completed [facility] 05/21/2015 09:07:27 Hep A, unspecified formulation 5 completed [facility] 05/21/2015 09:07:27 meningococcal ACWY, unspecified formulation 4 completed [facility] 05/21/2015 09:07:27 DTaP 2 completed [facility] 05/21/2015 09:07:27 Hib, unspecified formulation 3 completed Deborah Viadl [facility] 05/21/2015 09:07:27 DTaP 2 completed [facility] 05/21/2015 09:07:27 DTaP 2 completed [facility] 05/21/2015 09:07:27 OPV 2 completed [facility] 05/21/2015 09:07:27 HPV, unspecified formulation 7 completed [facility] 05/21/2015 09:07:27 OPV 2 completed [facility] 05/21/2015 09:07:27 MMR 3 completed [facility] 05/21/2015 09:07:27 HPV, unspecified formulation 7 completed [facility] 05/21/2015 09:07:27 Hep A, unspecified formulation 4 [facility] 05/21/2015 09:07:27 MMR 7 completed [facility] 05/21/2015 09:07:27 DTaP 3 completed [facility] 05/21/2015 09:07:27 Hep B, unspecified formulation 1 completed [facility] 05/21/2015 09:07:27 Hib, unspecified formulation 2 completed [facility] 05/21/2015 09:07:27 Hep B, unspecified formulation 1 completed [facility] 05/21/2015 09:07:27 DTaP 7 completed [facility] 05/21/2015 09:07:27 Tdap 9 completed [facility] 05/21/2015 09:07:27 HPV, unspecified formulation 7 completed [facility] 05/21/2015 09:07:27 Hep B, unspecified formulation 1 completed [facility] 05/21/2015 09:07:27 Hib, unspecified formulation 2 completed [facility] 05/21/2015 09:07:27 OPV 3 completed [facility] 05/21/2015 09:07:27 influenza, unspecified formulation 9 completed [facility]idal [facility] 05/21/2015 09:07:27 Influenza, split virus, trivalent, preservative 5 completed Katt Christiansen, [place] [facility] 08/14/2015 10:07:04 Influenza, split virus, quadrivalent, PF 8 completed Not Available [facility] 07/02/2019 02:33:02 Tdap 9 completed Not Available [facility] 07/02/2019 02:23:36 Influenza, split virus, quadrivalent, preservative 7 completed [facility] 03/14/2024 14:57:02 Influenza, split virus, quadrivalent, preservative 9 completed [facility] 03/14/2024 14:57:02 Influenza, split virus, quadrivalent, preservative 0 completed Larisa Ervin [facility] 03/21/2020 08:26:28 COVID-19, mRNA, LNP-S, PF, 100 mcg/0.5mL dose or 50 mcg/0.25mL dose 1 completed [facility] 03/14/2024 14:57:02 COVID-19, mRNA, LNP-S, PF, 100 mcg/0.5mL dose or 50 mcg/0.25mL dose 1 completed Bren[facility]oth [facility] 03/14/2024 14:57:02 COVID-19, mRNA, LNP-S, PF, 30 mcg/0.3 mL dose 1 completed Bren[facility]oth [facility] 03/14/2024 14:57:02 Influenza, split virus, quadrivalent, preservative 1 completed Bren[facility]oth [facility] 03/14/2024 14:57:02 Influenza, MDCK, quadrivalent, PF 2 completed Bren[facility]oth [facility] 03/14/2024 14:56:46 COVID-19, mRNA, LNP-S, bivalent, PF, 30 mcg/0.3 mL dose 2 completed [facility] 03/04/2022 08:08:57 Influenza, split virus, quadrivalent, PF 3 completed Brenda Toth [facility] 03/14/2024 14:57:02 Influenza, split virus, trivalent, preservative 2 completed Brenda [facility]oth [facility] 03/14/2024 14:56:46 Influenza, MDCK, quadrivalent, PF 7 completed Brenda [facility]oth [facility] 03/14/2024 14:57:02 Influenza, MDCK, quadrivalent, PF 9 completed GREGORIO ConnerA [facility] 03/14/2024 14:57:02 COVID-19, mRNA, LNP-S, PF, 100 mcg/0.5mL dose or 50 mcg/0.25mL dose 1 completed Brenda [facility]oth [facility] 03/14/2024 14:57:02 COVID-19, mRNA, LNP-S, PF, 100 mcg/0.5mL dose or 50 mcg/0.25mL dose 1 completed ANDIE [facility] 03/14/2024 14:57:02 COVID-19, mRNA, LNP-S, PF, 50 mcg/0.5 mL 3 completed Brenda Toth [facility] 03/14/2024 14:57:02 Td(adult) unspecified formulation 2 completed Brenda [facility]oth [facility] 03/14/2024 14:57:02 Influenza, split virus, quadrivalent, PF 3 completed Brenda [facility]oth [facility] 03/14/2024 14:57:02 Influenza, split virus, quadrivalent, PF 1 completed Bren[facility]oth [facility] 03/14/2024 14:57:02 Pneumococcal conjugate PCV20, polysaccharide [id number] conjugate, adjuvant, PF 4 completed [facility] 06/24/2024 09:04:00 COVID-19, mRNA, LNP-S, PF, 50 mcg/0.5 mL 4 completed LUCIE Kruse [facility] 06/24/2024 09:04:00 Influenza, split virus, trivalent, PF 4 [facility] 06/24/2024 09:04:00 Past Encounters Encounter ID Performer Location Encounter Start Date Encounter Closed Date Diagnosis/Indication Diagnosis SNOMED-CT Code Diagnosis ICD10 Code Diagnosis Note [id number] DO LASHONDA Jacobson, [facility], OFFICE [address] [place] [address] 07/08/2024 08:35:33 07/08/2024 09:09:00 Plantar wart of left foot [id number] 7941134 B07.0 pared down and treated with liquid nitrogenpt tolerated wellf/u 2 weeks for recheck Lightheadedness 90433215 8 R42 suspect due to reactive hypoglycem iapt to work on eating more regular snacks, higher protein meals History of eating disorder 8801644423 08320 Z86.59 hx arfid-type eating that has improved over the past 6 yearsworki ng w/ nutritioni st [id number] DO LASHONDA Jacobson, [facility], OFFICE [address] [place] [address] 07/12/2024 11:58:10 07/13/2024 15:19:14 Acute otitis media 9240458 H65.01 early stages of R AOMpt w/ [...] course of doxy 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 consider referral to allergy and immunology for further discussion was previously in care w/ Mesha Rosenthal and she is now self-payha s appt w/ ENT end of august [id number] Maryam Diez DO FP, [facility], OFFICE [address] [place] [address] 07/19/2024 10:27:12 07/19/2024 11:11:05 Plantar wart of left foot [id number] 8371007 B07.0 pared down and treated with liquid nitrogenpt tolerated wellf/u 2 weeks for recheck Apnea 8794806 R06.81 will order repeat sleep studyif inconclusi ve, consider mouth device through dentist Acute otitis media 05817 03 H65.01 improvingf inish doxyadvise d effusion can take 4-6 weeks to resolve [id number] Ashley Spicer NP FP, [facility], OFF[address] [place] [address] 07/23/2024 11:13:46 07/23/2024 11:43:17 Dysfunction of right eustachian tube 0526649167 719715 H69.91 no infection- reassuredc /t flonaseadv ised 3-4 days of afrin then d/jose ENT appt next month- advised to call this week with forecasted weather may be able to take advantage of last minute cancellati onf/u prn [id number] Britt Parra , OTR/L, CHT Physical Therapy, [address] [address] 07/29/2024 10:08:33 08/01/2024 15:24:15 Pain of left wrist 5939909705 85383 M25.532 Pain of right wrist 3169 121803 47655 M25.531 [id number] OLIVIA Marks , [facility], [address] [place] [address] 07/29/2024 15:27:29 08/04/2024 12:58:17 Plantar wart of left foot [id number] 5621994 B07.0 pared down and treated with liquid nitrogenpt tolerated wellf/u 2 weeks for recheck Dysfunctio n of eustachian tube 47608298 H69.90 can use flonaseadv ised can take 4-6 weeks for fluid to reabsorb after effusionha s ENT appt upcoming Health Concerns Section Related Observation LastModified by Organization Detbigg ls LastModified Time None Recorded Concern Status LastModified by Organization Details LastModified Time None Recorded Payers Encounter Date Sequence Insurance Name Policy Number Policy Martines Covered Member ID Martines Member ID Guarantor Name 07/29/2024 1 [place] [employer] [place]) [id number] Bigg Montalvo [id number] Biggcharlotte Montalvo Notes Date Note Type Note Provider Name and Address Organization Details Recorded Time 07/29/2024 text/html 07/29/2024 planta eloisa dean treatment ears still feeling blocked somewhat Kevin Ellison, OPERATIONS EXPERT [address] [place], [address], [facility] 07/29/2024 17:46:53 07/29/2024 text/html Physical Therapy History [...] 5/10 this week Duration:2 years Britt Parra OTR/L, CHT [address] [place], [address], [facility] 07/29/2024 15:02:00
--- OUTSIDE RECORDS SUMMARY | 2024-08-09 11:45 | XMS_ITS | Continuity of Care Document ---
Author Organization [facility], , [facility], OFFICE Address [address] [place] [address] Care Team Providers Care Electronic Organ Mechanic Name Role Phone GAURAV NOBLES Acquisition Professional [phone] HADLEY PHAN Shelter Case Manager KEVIN ARNOLD Acquisition Professional [facility] Brake Lining Curer ARISTEO PRATHER Textiles And Clothing Teacher JORGE GODINEZ Acquisition Professional KEVIN ELLISON Primary Care Provider [phone] Assessment No assessment recorded. Plan of Treatment [...] Lab None recorded. Referral None recorded. Procedures polysomno graphy (PROC) 2024 025 [email or web address] Sleep Med - [facility], [address] [place], [address], 07/22/2024 10:55:46 Surgeries None recorded. Imaging None recorded. Medication Orders None recorded. Patient TargetsNo targets recorded. Patient InstructionsNo instructions recorded. Reason for Referral None Reported. 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 Pap/HPV negative ( 9). Lisset Diez NP [address] [place], [place] [address], [address], [facility] 3 12:12:10 Elevated blood-pres sure reading without diagnosis of hypertensi on 610968696 Active 2017 Carissa Sanchez MD [address] [place], [place] [address], [place], [address], [facility] 8 11:33:54 Eating disorder 41615620 Active 2017 Carissa Sanchez MD [address] [place], [place] [address], [place], [address], [facility] 8 11:33:57 Anxiety 89661924 Active 2018 Lisset Diez NP [address] [place], [place] [address], [address], [facility] 3 08:43:53 Gastroesop hageal reflux disease 952588714 Active 2021 Mercedes Denton PA-C [address] [place], [place] [address], [address], [facility] 2 13:21:24 Chronic gastritis 5088435 Active 2022 Dx on EGD Lisset Diez NP [address] [place], [place] [address], [address], [facility] 3 09:08:48 Eczema 01369587 Active 2022 Whole life using triamcinol one cream Lisset Diez NP [address] [place], [place] [address], [address], [facility] 3 09:50:07 Hiatal hernia with gastroesop hageal reflux 050115947 Active 2022 Lisset Diez NP [address] [place], [place] [address], [address], [facility] 3 13:41:58 Disorder of connective tissue 909035370 Active 2023 Maryam Diez DO [address] [place] [address], [address], [facility] 4 14:09:58 Rheumatoid arthritis 78736412 Active 2023 Kevin Ellison, [address], [address], [facility] 4 13:25:16 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 Procedures Surgical History Date Name Laterality Status Provider Name and Address Organization Details Recorded Time 04/15/20 26566: Therapeutic Exercise completed Britt Parra, OTR/L, CHT [address] [place] [address], [address], [facility] 04/15/2024 11:13:30 04/15/20 41899: Therapeutic Activities - Direct 1:1 completed Britt Parra, OTR/L, CHT [address] [place] [address], [address], [facility] 04/15/2024 11:13:30 04/08/20 96091: Therapeutic Exercise completed Britt Parra, OTR/L, CHT [address] [place] [address], [address], [facility] 04/08/2024 12:02:39 04/08/20 44983: Therapeutic Activities - Direct 1:1 completed Britt Parra, OTR/L, CHT [address] [place] [address], [address], [facility] 04/08/2024 12:02:56 04/01/20 61848: Therapeutic Exercise completed Britt Parra, OTR/L, CHT [address] [place] [address], [address], [facility] 04/01/2024 10:36:29 04/01/20 03971: Manual Therapy completed Britt Parra, OTR/L, CHT [address] [place], [address], [facility] 04/01/2024 10:36:29 03/11/20 24 89528: Therapeutic Exercise completed Britt Parra, OTR/L, CHT [address] [place], [address], [facility] 03/11/2024 09:59:58 03/11/20 24 16449: Manual Therapy completed Britt Parra, OTR/L, CHT [address] [place], [address], [facility] 03/11/2024 09:59:58 03/04/20 24 52576: Therapeutic Exercise completed Britt Parra, OTR/L, CHT [address] [place], [address], [facility] 03/04/2024 10:42:06 03/04/20 24 93077: Manual Therapy completed Britt Parra, OTR/L, CHT [address] [place], [address], [facility] 03/04/2024 10:42:03 02/26/20 24 Smoking Cessation Counselling completed Britt Parra, OTR/L, CHT [address] [place], [address], [facility] 02/25/2024 22:34:40 02/26/20 24 Physical Activity Counselling completed Britt Parra, OTR/L, CHT [address] [place], [address], [facility] 02/25/2024 22:34:40 02/26/20 24 01101: OT Eval, Low Complexity completed Britt Parra, OTR/L, CHT [address] [place], [address], [facility] 02/25/2024 22:34:40 02/19/20 24 98580: Therapeutic Exercise completed Lisset Fontana, DPT [address] [place], [address], [facility] 02/19/2024 10:34:54 02/19/20 24 51596: Manual Therapy completed Lisset Fontana DPT [address] [facility] [place], [address], [facility] 02/19/2024 10:34:54 02/19/20 24 Neuromuscular re-education completed Lisset Fontana DPT [address] [place], [address], [facility] 02/19/2024 10:34:54 02/19/20 24 Treatment and Advice completed Lisset Fontana DPT [address] [place], [address], [facility] 02/19/2024 10:34:54 02/09/20 66417: Therapeutic Exercise completed Lisset Fontana DPT [address] [place], [address], [facility] 02/09/2024 10:11:32 02/09/20 24 64725: Manual Therapy completed Lisset Fontana DPT [address] [place], [address], [facility] 02/09/2024 10:10:58 02/09/20 Neuromuscular re-education completed Lisset Fontana DPT [address] [place], [address], [facility] 02/09/2024 10:11:02 02/09/20 Treatment and Advice completed Lisset Fontana DPT [address] [place], [address], [facility] 02/09/2024 10:09:07 02/02/20 24 72700: Therapeutic Exercise completed Lisset Fontana DPT [address] [place], [address], [facility] 02/07/2024 23:13:01 02/02/20 24 12069: Manual Therapy completed Lisset Fontana DPT [address] [place], [address], [facility] 02/07/2024 23:14:16 02/02/20 24 Neuromuscular re-education completed Lisset Fontana DPT [address] [place], [address], [facility] 02/07/2024 23:12:57 02/02/20 24 Treatment and Advice completed Lisset Fontana DPT [address] [place], [address], [facility] 02/07/2024 23:12:25 01/26/20 24 23566: Therapeutic Exercise completed Lisset Fontana DPT [address] [place], [address], [facility] 01/26/2024 11:07:53 01/26/20 24 72606: Manual Therapy completed Lisset Fontana DPT [address] [place], [address], [facility] 01/26/2024 11:07:34 01/26/20 24 Neuromuscular re-education completed Lisset Fontana DPT [address] [place], [address], [facility] 01/26/2024 11:07:44 01/26/20 24 Treatment and Advice completed Lisset Fontana DPT [address] [place], [address], [facility] 01/26/2024 11:07:21 01/19/20 24 60507: Therapeutic Exercise completed Lisset Fontana DPT [address] [place], [address], [facility] 01/22/2024 10:12:08 01/19/20 24 55395: Manual Therapy completed Lisset Fontana DPT [address] [place], [address], [facility] 01/22/2024 10:12:39 01/19/20 Treatment and Advice completed Lisset Fontana DPT [address] [place], [address], [facility] 01/22/2024 10:12:05 Imaging Results None recorded. Procedure Notes None recorded. Medical Equipment None Reported. Allergies Allergen ID Allergen Name Allergen Category Reaction Reaction Severity Criticality Documentation Date Start Date Code Code System Note Provider Name and Address Organization Details Recorded Time 415512 Product containin g penicilli n (product) medicatio n hives Not available Not available 07/31/2014 37733 8001 SNOMED Katt Christiansen MA [facility] 5 08:53:35 729743 amoxicill in medicatio n hives Not available Not available 07/31/2014 723 RxNorm Katt Christiansen MA [facility] 5 08:53:35 612803 Ceftin medicatio n hives Not available Not available 07/31/2014 56917 6 [facility] 5 08:53:35 541677 Ceclor medicatio n hives Not available Not available 07/31/2014 13098 5 RxNorm [facility] 5 08:53:35 052821 albuterol medicatio n tachycard ia moderate Not available 03/21/2020 435 RxNorm back spasm s Larisa Ervin, PAINTER SET [facility] 0 08:24:58 009936 Substance with sulfonami de structure and antibacte rial mechanism of action (substanc e) medicatio n Not available Not available Not available 03/15/2024 39241 8003 SNOMED ? as child Brenda Toth, [facility] 4 11:26:10 Medications Name Sig [...] TOPICALL Y TO AFFECTED AREA TWICE DAILY 08/08 /2023 completed stopped 12/11/22 Not Available Not Available Not Available Hypodermi c Mackay 23 gauge x 1 03/21 completed Not Available Not Available Not Available ketorolac 10 mg tablet TAKE 1 TABLET BY MOUTH EVERY 6 HOURS NEEDED FOR PAIN 08/28 completed Not Available Not Available Not Available dexametha sone 0.5 mg/5 mL oral solution PLEASE SEE ATTACHED FOR DETAILED DIRECTIO NS 11/26 completed No longer taking Not Available Not Available Not Available BD Regular Bevel Mackay 18 gauge x 1 USE DIRECTED WEEKLY [...] Not Available Not Available BD Regular Bevel Mackay 25 gauge x 5/8 USE DIRECTED WEEKLY [...] completed 4 prescrib ed by [facility] Not Available Not Available Not Available OptiChamb er Isha [facility] spacer USE DIRECTED . 03/21 completed Not Available Not Available Not Available testoster one undecanoa te 750 mg/3 mL (250mg/mL ) intramusc ular solution Inject 3 mL by intramus cular route. active injectio n every 10 weeks at [facility] [employer] Not Available Not Available Not Available Flulaval Quad 8030-3273 60 mcg (15 mcg x 4)/0.5 mL IM suspensio n active Not Available Not Available Not Available Afluria (PF) 45 mcg (15 mcg x 3)/0.5 mL IM syringe TO BE ADMINIST ERED BY edupristine FOR IMMUNIZA TION active Not Available Not [...] Not Available No t Available Flucelvax Quad 2106-4604 (PF) 60 mcg (15 mcg x 4)/0.5 mL IM syringe VACCINAT ION ADMINIST ERED BY edupristine ST 11/15 completed Not Available Not Available Not Available Paxlovid 300 mg (150 mg x 2)-100 mg tablets in a dose pack TAKE DIRECTED 06/19 completed Not Available Not Available Not Available Vitals Date Recorded Body height Body temperature Heart rate Systolic blood pressure Diastolic blood pressure Provider Name and Address Organization Details Last Updated DateTime 07/19/2024 162.56 cm 98 [degF] 78 /min 116 mm[Hg] 58 mm[Hg] Larisa Ervin LPN [facility] 10:36:55 Social History Question Answer Notes LastModified by Organizat ion Details LastModified Time Tobacco Smoking Status Never Smoker LUCIE Lange, [facility] 07/31/2014 08:56:21 What Is Your Level [...] available 08/14/2015 Are You Currently Employed? Yes Information not available 02/06/2021 What Type Of [...] Do You Use Insect Repellent Routinely? Yes [email or web address] Information not available 02/06/2021 Live Alone Or With Others? With Others Information not available 07/31/2014 Marital Status Informatio n not available 11/21/2019 Mosquito Repellent Used Routinely No Information not available 10/29/2018 What Was The Date Of Your Most Recent Tobacco Screening? 08/05/2024 Information not available 08/05/2024 How Many Children Do You Have? 0 Information not available 07/31/2014 What Is Your Relationship Status? [email or web address] Information not available 02/06/2021 Do You Use Your Seat Belt Or Car Seat Routinely? Yes [email or web address] Information not available 02/06/2021 Seat Belts Used Routinely Yes Information not available 07/31/2014 Are You Sexually Active? No Recently Had Negative STI (Tapestry) In 2013 Information not available 07/31/2014 Smoke Alarm In Home Yes Information not available 07/31/2014 Do You Have Smoke And Carbon Monoxide Detectors In Your Home? Yes [email or web address] Information not available 02/06/2021 Are You Passively Exposed To Smoke? No [email or web address] Information not available 02/06/2021 Do You Or [...] 08/13/2021 Do You Use Sunscreen Routinely? Yes [email or web address] Information not available 02/06/2021 Do You Or Have You Ever Used Any Other Forms Of Tobacco Or Nicotine? No Information not available 08/13/2021 Sex: Female Functional Status Question Answer Note LastModified by Organization D etails LastModified Time What is your exercise level? Moderate [email or web address] Information not available 02/06/2021 Mental Status None recorded. Family History Relationship Description Onset Age of this Age Resolved Age Notes LastModified by Organization Details LastModified Time Maternal Grandmother Malignant neoplastic disease [email or web address] Not available 2014 09:08:48 Father No current problems or disability [email or web address] Not available 10/14 16:41:58 Mother No current problems or disability [email or web address] Not available 10/14 16:41:58 Notes:No FHx of [...] Influenza, split virus, quadrivalent, preservative 4 completed [facility]att Christiansen [facility] 07/31/2014 08:53:35 Td(adult) unspecified formulation 2 completed Brenda Toth ANDIE [facility] 03/14/2024 14:57:02 Td(adult) unspecified formulation 4 completed Deborah Vidal [place] [facility] 05/21/2015 09:07:27 OPV 7 completed Deborah Vidal LUCIE [facility] 05/21/2015 09:07:27 Hib, unspecified formulation 2 completed [facility]CIE [facility] 05/21/2015 09:07:27 Hep A, unspecified formulation 5 completed Deborah Vidal [place] [facility] 05/21/2015 09:07:27 meningococcal ACWY, unspecified formulation 4 completed Deborah Vidal [place] [facility] 05/21/2015 09:07:27 DTaP 2 completed Deborah Vidal [place] [facility] 05/21/2015 09:07:27 Hib, unspecified formulation 3 completed Deborah Vidal [place]E [facility] 05/21/2015 09:07:27 DTaP 2 completed Deborah Vidal MA [facility] 05/21/2015 09:07:27 DTaP 2 completed Deborah Vidal [place] [facility] 05/21/2015 09:07:27 OPV 2 completed Deborah Vidal [place] [facility] 05/21/2015 09:07:27 HPV, unspecified formulation 7 completed Deborah Vidal [place] [facility] 05/21/2015 09:07:27 OPV 2 completed Deborah Vidal [place] [facility] 05/21/2015 09:07:27 MMR 3 completed Deborah Vidal [place] [facility] 05/21/2015 09:07:27 HPV, unspecified formulation 7 completed [facility] 05/21/2015 09:07:27 Hep A, unspecified formulation 4 completed [facility] 05/21/2015 09:07:27 MMR 7 completed Deborah Viadl [facility]E [facility] 05/21/2015 09:07:27 DTaP 3 completed [facility] 05/21/2015 09:07:27 Hep B, unspecified formulation 1 completed [facility] 05/21/2015 09:07:27 Hib, unspecified formulation 2 completed Deborah Vidal [facility] 05/21/2015 09:07:27 Hep B, unspecified formulation 1 completed [facility] 05/21/2015 09:07:27 DTaP 7 completed [facility] 05/21/2015 09:07:27 Tdap 9 completed [facility] 05/21/2015 09:07:27 HPV, unspecified formulation 7 completed Deborah Vidal [facility] [facility] 05/21/2015 09:07:27 Hep B, unspecified formulation 1 completed [facility] 05/21/2015 09:07:27 Hib, unspecified formulation 2 completed Deborah Vidal [facility] 05/21/2015 09:07:27 OPV 3 completed Deborah Vidal [facility] 05/21/2015 09:07:27 influenza, unspecified formulation 9 completed Deborah Vidal [facility] 05/21/2015 09:07:27 Influenza, split virus, trivalent, preservative 5 completed [facility] 08/14/2015 10:07:04 Influenza, split virus, quadrivalent, PF 8 completed Not Available [facility] 07/02/2019 02:33:02 Tdap 9 completed Not Available [facility] 07/02/2019 02:23:36 Influenza, split virus, quadrivalent, preservative 7 completed Brenda Toth RMA [facility] 03/14/2024 14:57:02 Influenza, split virus, quadrivalent, preservative 9 completed Brenda Toth RMA [facility] 03/14/2024 14:57:02 Influenza, split virus, quadrivalent, preservative 0 completed Larisa Ervin LPN [facility] 03/21/2020 08:26:28 COVID-19, mRNA, LNP-S, PF, 100 mcg/0.5mL dose or 50 mcg/0.25mL dose 1 completed ANDIE Conner [facility] 03/14/2024 14:57:02 COVID-19, mRNA, LNP-S, PF, 100 mcg/0.5mL dose or 50 mcg/0.25mL dose 1 completed Brenda Toth RMA [facility] 03/14/2024 14:57:02 COVID-19, mRNA, LNP-S, PF, 30 mcg/0.3 mL dose 1 completed Brenda Toth RMA [facility] 03/14/2024 14:57:02 Influenza, split virus, quadrivalent, preservative 1 completed GREGORIO ConnerA [facility] 03/14/2024 14:57:02 Influenza, MDCK, quadrivalent, PF 2 completed GREGORIO ConnerA [facility] 03/14/2024 14:56:46 COVID-19, mRNA, LNP-S, bivalent, PF, 30 mcg/0.3 mL dose 2 completed LUCIE [facility] 03/04/2022 08:08:57 Influenza, split virus, quadrivalent, PF 3 completed Brenda Toth RMA [facility] 03/14/2024 14:57:02 Influenza, split virus, trivalent, preservative 2 completed Brenda Toth RMA [facility] 03/14/2024 14:56:46 Influenza, MDCK, quadrivalent, PF 7 completed Brenda Toth RMA [facility] 03/14/2024 14:57:02 Influenza, MDCK, quadrivalent, PF 9 completed ANDIE Conner [facility] 03/14/2024 14:57:02 COVID-19, mRNA, LNP-S, PF, 100 mcg/0.5mL dose or 50 mcg/0.25mL dose 1 completed ANDIE Conner [facility] 03/14/2024 14:57:02 COVID-19, mRNA, LNP-S, PF, 100 mcg/0.5mL dose or 50 mcg/0.25mL dose 1 completed GREGORIO ConnerA [facility] 03/14/2024 14:57:02 COVID-19, mRNA, LNP-S, PF, 50 mcg/0.5 mL 3 completed Brenda Toth RMA [facility] 03/14/2024 14:57:02 Td(adult) unspecified formulation 2 completed Brenda Toth RMA [facility] 03/14/2024 14:57:02 Influenza, split virus, quadrivalent, PF 3 completed GREGORIO ConnerA [facility] 03/14/2024 14:57:02 Influenza, split virus, quadrivalent, PF 1 completed Brenda TothANIDEColor[facility] 03/14/2024 14:57:02 Pneumococcal conjugate PCV20, polysaccharide PEY484 conjugate, adjuvant, PF 4 completed Ambreen T[place] [facility] 06/24/2024 09:04:00 COVID-19, mRNA, LNP-S, PF, 50 mcg/0.5 mL 4 completed Ambreen [place], [place] [facility] 06/24/2024 09:04:00 Influenza, split virus, trivalent, PF 4 completed Ambreen [place], [place] [facility] 06/24/2024 09:04:00 Past Encounters Encounter ID Performer Location Encounter Start Date Encounter Closed Date Diagnosis/Indication Diagnosis SNOMED-CT Code Diagnosis ICD10 Code Diagnosis Note [id number] Sejal Rodriguez MD FP, [facility], [address] [place] [address] 06/24/2024 08:57:49 06/28/2024 13:35:14 Lightheadedness 975235843 R42 possible pots-type orthostasi s vs hypoglycem iapt to track episodes, track eating/dri nking and activities leading up to eventwill review in 3 mosdiscuss ed keeping sugary candy and water with himeating well balanced snack every 2-3 hours Rheumatoid arthritis 698 12265 M06.9 in care w/ rheumtrial ing humira + methotrexa te, just started yesterday Eczema 07768124 L30.9 improved on methotrexa te Eating disorder 41622195 F50.9 hx arfid-type eating that has improvedwo rking w/ nutritioni st, seeing them next week Pain in axilla 169227147 M79.629 pt reporting swelling in R axillano tenderness , no lumps palpatedve ry mild asymmetry, possible difference in healing/sc ar tissue from top surgerydis cussed chest exams at well visit to palpate lymph nodes and tissue along scar line to screen for breast cancer [id number] Maryam Diez DO FP, [facility], [address] [place] [address] 07/08/2024 08:35:33 07/08/2024 09:09:00 Plantar wart of left foot [id number] 0859861 B07.0 pared down and treated with liquid nitrogenpt tolerated wellf/u 2 weeks for recheck Lightheadedness 43631453 8 R42 suspect due to reactive hypoglycem iapt to work on eating more regular snacks, higher protein meals History of eating disorder 1508331422 51874 Z86.59 hx arfid-type eating that has improved over the past 6 yearsworki ng w/ nutritioni st [id number] Maryam Diez DO , [facility], [address] [place] [address] 07/12/2024 11:58:10 07/13/2024 15:19:14 Acute otitis media 4960802 H65.01 early stages of R AOMpt w/ allergies to PCN and cephalospo rins, had allergy testing confirming plan to hold MTX tonightmon itor sx x 48hrsif improving, great! no need to take antibiotic sif sx not improving/ worsening can start doxypt to notify rheumatolo gist about ear infection and antibiotic s, ? 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 consider referral to allergy and immunology for further discussion was previously in care w/ Mesha Rosenthal and she is now self-payha s appt w/ ENT end of [id number] Maryam Diez DO , [facility], [address] [place] [address] 07/19/2024 10:27:12 07/19/2024 11:11:05 Plantar wart of left foot [id number] 4169825 B07.0 pared down and treated with liquid nitrogenpt tolerated wellf/u 2 weeks for recheck Apnea 0360602 R06.81 will order repeat sleep studyif inconclusi ve, consider mouth device through dentist Acute otitis media 59626 03 H65.01 improvingf inish doxyadvise d effusion can take 4-6 weeks to resolve Health Concerns Section Related Observation LastModified by Organization Detai ls LastModified Time None Recorded Concern Status LastModified by Organization Details LastModified Time None Recorded Payers Encounter Date Sequence Insurance Name Policy Number Policy Martines Covered Member ID Martines Member ID Guarantor Name 07/19/2024 1 [place] [employer] [place]) [id number] Bigg Montalvo [id number] Bigg Montalvo Notes Date Note Type Note Provider Name and Address Organization Details Recorded Time 07/19/2024 text/html 07/19/2024 plantar wart treatment would like referral for sleep studypartner noticing he has pauses in breathing, especiallly when lying on backhad in home sleep study 2022, in lab sleep study was waking up constantly. result inconcluisve on abx for ear and throat but now other side of throat hurts as well Maryam Diez, DO [address] [place] [address], [place], [id number], [facility] 07/22/2024 09:49:46
--- OUTSIDE RECORDS SUMMARY | 2024-08-09 11:45 | XMS_ITS | Clinical Summary ---
Author Organization [employer] Address [address] [place] [address] Care Team Providers Care Broomcorn Press Feeder Name Role Phone Micky Suárez MD Unavailable [phone] Allergies Active Allergy Reactions Criticality Noted Date Comments Albuterol Palpitations High 02/01/2020 Other reaction(s): Myositis Amoxicillin Hives 05/28/2022 Cefaclor Hives 05/28/2022 Cephalexin Hives High 02/01/2020 Penicillins Hives High 07/01/2019 Sulfa Antibiotics Hives High 02/01/2020 Medications ondansetron (Zofran) 4 MG tablet Take 1-2 tablet(s) by mouth every 8 hours as needed for nausea/vomiting 2 Active cetirizine (ZyrTEC) 10 MG tablet Take 10 mg by mouth in the morning. Active famotidine (Pepcid) 40 MG tablet Take 40 mg by mouth in the morning and at bedtime. 2 Active fluticasone (Flonase) 50 MCG/ACT nasal spray Administer 1 spray into affected nostril(s) in the morning. Active hydrOXYzine HCl (Atarax) 25 MG tablet Take 25 mg by mouth if needed in the morning, at noon, and at bedtime. 2 Active Testosterone Undecanoate (AVEED IM) Inject into the shoulder, thigh, or buttocks. 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 Likely reactive in the setting of acute bronchitis at the time. Never smoker. No indication to follow with further imaging. Hilar lymphadenopathy 02/01/2020 Overview (05/28/2022): Last Assessment & Plan: Mild hilar lymphadenopathy noted on CTA chest from 11/28/19. No granulomas or lung parenchymal abnormalities seen on imaging. Sarcoidosis would seem to be unlikely. The lymphadenopathy is most likely reactive in nature in the setting of acute bronchitis which he had at the time. No further work-up is indicated. Family History Medical History Relation Name Comments possible cataracts Maternal Grandmother Relation Name Status Comments Maternal Grandmother Social History Tobacco Use Types Packs/Day Years Used Date Smoking Tobacco: Never Tobacco Cessation:Counseling Given: Not Answered Comments Unknown Sex and Gender Information Value Date Recorded Sex Assigned at Female 05/28/2022 11:03 AM EST Legal Sex Male 2:58 PM EST Gender Identity Male 05/26/2022 2:58 PM EST Sexual Orientation Choose not to disclose 2022 12:09 PM EST Last Filed Vital Signs Vital Sign Reading Time Taken Comments Blood Pressure 120/64 06/22/2023 9:08 AM EST Pulse - - Temperature 36.5 ??C (97.7 ??F) 06/22/2023 9:08 AM ES T Respiratory Rate - - Oxygen Saturation - - Inhaled Oxygen Concentration - - Weight - - Height - - Body Mass Index - - Plan of Treatment Health Maintenance Due Date Last Done Comments Depression Screening 1991 HIV Screening 1991 SDOH Screening 1991 Alcohol/Substance Use Screening 2003 Tobacco Screening 2003 Family Planning (PISQ) 2006 Hepatitis C Screening 2009 Pap Smear 2012 Cervical Cancer Screening 2021 HPV/Cotest 2021 COVID-19 Vaccine ( season) 2024 03/27/2023, 02/28/2022, 04/26/2021, Additional history exists Influenza Vaccine (#1) 2024 , 02/28/2022, 04/26/2021, Additional history exists DTaP/Tdap/Td Vaccines (9 - Td or Tdap) 08/27/2028 08/27/2018, 06/15/2011, 09/06/2008, Additional history exists Zoster Vaccines (1 of 2) 2041 RSV Patients and Patients Aged 60 years or older (1 - 1-dose 75+ series) 2066 HIB Vaccines Completed 08/21/1992, 10/13, 1991, Additional history exists IPV Vaccines Completed 11/09/1996, 07/1992, 1991, Additional history exists Hepatitis B Vaccines Completed 03/10/2001, 09/29/2000, 08/24/2000 Meningococcal Vaccine Aged Out 11/29/2003 No radha niyah eligible based on patient's age to complete this topic Hepatitis A Vaccines Completed 10/14/2004, 11/29/19 04 HPV Vaccines Completed 03/18/2007, 10/14, 08/31/2006 Pneumococcal Vaccine: Pediatrics (0 to 5 Years) and At-Risk Patients (6 to 49) Years) Aged Out No longer eligible based on patient's age to complete this topic RSV under 20 months Aged Out No longe r eligible based on patient's age to complete this topic Rotavirus Vaccines Aged Out No longer eligible based on patient's age to complete this topic Insurance EYE MED BCBS OUT OF STATE Care Teams Broomcorn Press Feeder Relationship Specialty Start Date End Date Micky Suárez MD [address] [place] [id number] Neurology 05/28/[address] [id number] Primary Care Provider 06/08/23
== END 2024-08-09 10:56 | disposition home or self-care (01) ==
PROVIDERS: PCP Registered Nurse; Visit Provider Internal Medicine Rheumatology
DX: M06.09 Rheumatoid arthritis without rheumatoid factor, multiple sites (principal); Z79.899 Other long term (current) drug therapy; R74.01 Elevation of levels of liver transaminase levels
CPT/HCPCS: 99214

== ENCOUNTER 2024-08-09 10:03 | Outpatient (REF) | payer BC, SELFPAY ==
--- OUTSIDE RECORDS SUMMARY | 2024-08-09 12:56 | XMS_ITS | Referral Summary ---
Author Organization [facility] Address [address] [place] [address] Care Team Providers Care Energy Specialist Name Role Phone Lisset Diez MEDICAL SERVICE REPRESENTATIVE Primary Care Provider [phone] Allergies Active Allergy Reactions Criticality Noted Date [...] BCBS OUT OF STATE PPO Care Teams Energy Specialist Relationship Specialty Start Date End Date Lisset Diez NP [address] [place] [address] PCP - General 11/11/22
--- OUTSIDE RECORDS SUMMARY | 2024-08-09 12:56 | XMS_ITS | Clinical Summary ---
Author Organization [facility] Address [address] [place] [address] Care Team Providers Care Lamination Assembler Name Role Phone Lisset Diez WARPER CREELER Primary Care Provider [phone] Allergies Active Allergy Reactions Criticality Noted Date [...] BCBS OUT OF STATE PPO Care Teams Lamination Assembler Relationship Specialty Start Date End Date Lisset Diez NP [address] [place] [id number] PCP - General 11/11/22
--- OUTSIDE RECORDS SUMMARY | 2024-08-09 12:57 | XMS_ITS | Continuity of Care Document ---
Author Organization [facility], , [facility], OFFICE Address [address] [place] [address] Care Team Providers Care Dye Range Tender Name Role Phone GAURAV NOBLES Cut Off Worker [phone] HADLEY PHAN College [employer] Business Manager KEVIN ARNOLD Cut Off Worker [facility] Mobile Web Application Developer ARISTEO PRATHER Pizzamaker JORGE GODINEZ Cut Off Worker KEVIN ELLISON Primary Care Provider [phone] Assessment No assessment recorded. Plan of Treatment [...] None recorded. Imaging None recorded. Medication Orders doxycycli ne hyclate 100 mg tablet 2024 025 [facility]/Pharmacy #[id number], [address] [place], [address], 07/23/2024 11:16:44 Patient TargetsNo targets recorded. Patient InstructionsNo instructions recorded. Reason for Referral None Reported. 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 Pap/HPV negative ( 9). Lisset Diez NP [address] [place], [place] [address], [address], [facility] 12:12:10 Elevated blood-pres sure reading without diagnosis of hypertensi on 004615173 Active 2017 Carissa Sanchez MD [address] [place], [place] [address], [address], [facility] 11:33:54 Eating disorder 19017756 Active 2017 Carissa Sanchez MD [address] [place], [place] [address], [address], [facility] 11:33:57 Anxiety 29079733 Active 2018 Lisset Diez NP [address] [place] [address] [place], [address], [facility] 08:43:53 Gastroesop hageal reflux disease 793507923 Active 2021 Mercedes Denton PA-C [address] [place], [place] [address], [address], [facility] 13:21:24 Chronic gastritis 5451965 Active 2022 Dx on EGD Lisset Diez NP [address] [place], [place] [address], [address], [facility] 09:08:48 Eczema 90559471 Active 2022 Whole life using triamcinol one cream Lisset Diez NP [address] [place] [address] [place], [address], [facility] 09:50:07 Hiatal hernia with gastroesop hageal reflux 358682089 Active 2022 Lisset Diez NP [address] [place] [address] [place], [address], [facility] 13:41:58 Disorder of connective tissue 236631415 Active 2023 Maryam Diez DO [address] [place], [address], [facility] 14:09:58 Rheumatoid arthritis 77183523 Active 2023 Kevin Ellison, [address] [place], [address], [facility] 13:25:16 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 Procedures Surgical History Date Name Laterality Status Provider Name and Address Organization Details Recorded Time 04/15/20 65356: Therapeutic Exercise completed Britt Parra, OTR/L, CHT [address] [place] [address], [address], [facility] 04/15/2024 11:13:30 04/15/20 79670: Therapeutic Activities - Direct 1:1 completed Britt Parra, OTR/L, CHT [address] [place] [address], [address], [facility] 04/15/2024 11:13:30 04/08/20 35593: Therapeutic Exercise completed Britt Parra, OTR/L, CHT [address] [place] [address], [address], [facility] 04/08/2024 12:02:39 04/08/20 79703: Therapeutic Activities - Direct 1:1 completed Britt Parra, OTR/L, CHT [address] [place] [address], [address], [facility] 04/08/2024 12:02:56 04/01/20 39583: Therapeutic Exercise completed Britt Parra, OTR/L, CHT [address] [place] [address], [address], [facility] 04/01/2024 10:36:29 04/01/20 83187: Manual Therapy completed Britt Parra, OTR/L, CHT [address] [place], [address], [facility] 04/01/2024 10:36:29 03/11/20 24 73019: Therapeutic Exercise completed Britt Parra, OTR/L, CHT [address] [place], [address], [facility] 03/11/2024 09:59:58 03/11/20 24 35745: Manual Therapy completed Britt Parra, OTR/L, CHT [address] [place], [address], [facility] 03/11/2024 09:59:58 03/04/20 24 65014: Therapeutic Exercise completed Britt Parra, OTR/L, CHT [address] [place], [address], [facility] 03/04/2024 10:42:06 03/04/20 24 91338: Manual Therapy completed Britt Parra, OTR/L, CHT [address] [place], [address], [facility] 03/04/2024 10:42:03 02/26/20 24 Smoking Cessation Counselling completed Britt Parra, OTR/L, CHT [address] [place], [address], [facility] 02/25/2024 22:34:40 02/26/20 24 Physical Activity Counselling completed Britt Parra, OTR/L, CHT [address] [place], [address], [facility] 02/25/2024 22:34:40 02/26/20 24 79530: OT Eval, Low Complexity completed Britt Linderitejose daniel, OTR/L, CHT [address] [place], [address], [facility] 02/25/2024 22:34:40 02/19/20 24 15128: Therapeutic Exercise completed Lissetreyes Fontana DPT [address] [place], [address], [facility] 02/19/2024 10:34:54 02/19/20 24 25023: Manual Therapy completed Lisset Fontana DPT [address] [place], [address], [facility] 02/19/2024 10:34:54 02/19/20 24 Neuromuscular re-education completed Lisset Fontana DPT [address] [place], [address], [facility] 02/19/2024 10:34:54 02/19/20 24 Treatment and Advice completed Lisset Fontana DPT [address] [place], [address], [facility] 02/19/2024 10:34:54 02/09/20 83014: Therapeutic Exercise completed Lisset Fontana DPT [address] [place], [address], [facility] 02/09/2024 10:11:32 02/09/20 24 09166: Manual Therapy completed Lisset Fontana DPT [address] [place], [address], [facility] 02/09/2024 10:10:58 02/09/20 Neuromuscular re-education completed Lisset Fontana DPT [address] [place], [address], [facility] 02/09/2024 10:11:02 02/09/20 Treatment and Advice completed Lisset Fontana DPT [address] [place], [address], [facility] 02/09/2024 10:09:07 02/02/20 24 44201: Therapeutic Exercise completed Lisset Fontana DPT [address] [place], [address], [facility] 02/07/2024 23:13:01 02/02/20 50325: Manual Therapy completed Lisset Fontana DPT [address] [place], [address], [facility] 02/07/2024 23:14:16 02/02/20 24 Neuromuscular re-education completed Lisset Fontana DPT [address] [place], [address], [facility] 02/07/2024 23:12:57 02/02/20 24 Treatment and Advice completed Lisset Fontana DPT [address] [place], [address], [facility] 02/07/2024 23:12:25 01/26/20 24 87583: Therapeutic Exercise completed EMETERIO ArredondoT [address] [place], [address], [facility] 01/26/2024 11:07:53 01/26/20 24 53097: Manual Therapy completed Lisset Fontana DPT [address] [place], [address], [facility] 01/26/2024 11:07:34 01/26/20 24 Neuromuscular re-education completed Lisset Fontana DPT [address] [place], [address], [facility] 01/26/2024 11:07:44 01/26/20 24 Treatment and Advice completed Lisset Fontana DPT [address] [place], [address], [facility] 01/26/2024 11:07:21 01/19/20 24 26053: Therapeutic Exercise completed Lisset Fontana DPT [address] [place], [address], [facility] 01/22/2024 10:12:08 01/19/20 24 69683: Manual Therapy completed Lisset Fontana DPT [address] [place], [address], [facility] 01/22/2024 10:12:39 01/19/20 24 Treatment and Advice completed Lisset Fontana DPJack [address] [place], [address], [facility] 01/22/2024 10:12:05 Imaging Results None recorded. Procedure Notes None recorded. Medical Equipment None Reported. Allergies Allergen ID Allergen Name Allergen Category Reaction Reaction Severity Criticality Documentation Date Start Date Code Code System Note Provider Name and Address Organization Details Recorded Time 704573 Product containin g penicilli n (product) medicatio n hives Not available Not available 07/31/2014 28474 8001 [facility] 08:[facility]35 860885 amoxicill in medicatio n hives Not available Not available 07/31/2014 723 RxNorm [facility] 5 08:53:35 496826 Ceftin medicatio n hives Not available Not available 07/31/2014 69198 6 [facility]Norm [facility] 5 08:53:35 165509 Ceclor medicatio n hives Not available Not available 07/31/2014 07916 5 [facility]Norm [facility] 5 08:53:35 258174 albuterol medicatio n tachycard ia moderate Not available 03/21/2020 435 RxNorm back spasm s Larisa Ervin, ENTERPRISE ANALYST [facility] 0 08:24:58 826961 Substance with sulfonami de structure and antibacte rial mechanism of action (substanc e) medicatio n Not available Not available Not available 03/15/2024 52403 8003 SNOMED ? as child Brenda Toth, [facility] 4 11:26:10 Medications Name Sig Start [...] Available Not Available Not Available Hypodermi c [place] 23 gauge x 1 03/21 completed Not Available Not Available Not Available ketorolac 10 mg tablet TAKE 1 TABLET BY MOUTH EVERY 6 HOURS NEEDED FOR PAIN 08/28 completed Not Available Not Available Not Available dexametha sone 0.5 mg/5 mL oral solution PLEASE SEE ATTACHED FOR DETAILED DIRECTIO NS 11/26 completed No longer taking Not Available Not Available Not Available BD Regular Bevel [place] 18 gauge x 1 USE DIRECTED WEEKLY [...] Not Available Not Available BD Regular Bevel [place] 25 gauge x 5/8 USE DIRECTED WEEKLY [...] foam 02/01 completed 4 prescrib ed by [facility] Not Available Not Available Not Available OptiChamb er Isha [facility] spacer USE DIRECTED . 03/21 completed Not Available Not Available Not Available testoster one undecanoa te 750 mg/3 mL (250mg/mL ) intramusc ular solution Inject 3 mL by intramus cular route. active injectio n every 10 weeks at [facility] [employer] Not Available Not Available Not Available Flulaval Quad 0315-5588 60 mcg (15 mcg x 4)/0.5 mL IM suspensio n active Not Available Not Available Not Available Afluria (PF) 45 mcg (15 mcg x 3)/0.5 mL IM syringe TO BE ADMINIST ERED BY [employer] Water FOR IMMUNIZA TION active Not Available Not Available No t Available Easy Touch FlipLock Needle 18 gauge x 1 USE DIRECTED WEEKLY 01/06 completed Not Available Not Available Not Available ferrous sulfate 220 mg (44 mg iron)/5 mL oral elixir TK 5 ML IN ORANGE JUICE PO QAM 30 MIN B KERWIN 05/24 completed patient d/c 05/24/20 18 [email or web address] Not Available Not Available Not Available Humira(CF ) Pen 40 mg/0.4 mL subcutane ous kit active Not Available Not Available Not Available Xyosted 75 mg/0.5 mL subcutane ous auto-inje ctor INJECT 0.5 ML (75 MG TOTAL) UNDER THE SKIN EVERY 7 DAYS. active Not Available Not Available No t Available Flucelvax Quad 5856-3254 (PF) 60 mcg (15 mcg x 4)/0.5 mL IM syringe VACCINAT ION ADMINIST ERED BY [employer] 11/15 completed Not Available Not Available Not Available Paxlovid 300 mg (150 mg x 2)-100 mg tablets in a dose pack TAKE DIRECTED 06/19 completed Not Available Not Available Not Available Vitals Date Recorded Body height Oxygen saturation Oxygen saturation in Arterial blood by Pulse oximetry Heart rate Body temperature Systolic blood pressure Diastolic blood pressure Provider Name and Address Organization Details Last Updated DateTime 5 162.56 cm 99 % 99 % 72 /min 97.7 [degF] 96 mm[Hg] 56 mm[Hg] Maria M Soto MA [facility] 5 12:09:59 Social History Question Answer Notes LastModified by Organizat ion Details LastModified Time Tobacco Smoking Status Never Smoker LUCIE Lange [facility] 07/31/2014 08:56:21 What Is Your [...] available 08/14/2015 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 Yes [email or web address] Information not available 02/06/2021 Live Alone Or With Others? With Others Information not available 07/31/2014 Marital Status [email or web address] Informatio n not available 11/21/2019 Mosquito Repellent Used Routinely No Information not available 10/29/2018 What Was The Date Of Your Most Recent Tobacco Screening? 08/05/2024 Information not available 08/05/2024 How Many Children Do You Have? 0 Information not available 07/31/2014 What Is Your Relationship Status? Information not available 02/06/2021 Do You Use Your Seat Belt Or Car Seat Routinely? Yes [email or web address] Information not available 02/06/2021 Seat Belts Used Routinely Yes Information not available 07/31/2014 Are You Sexually Active? No Recently Had Negative STI (Tapestry) In 2014 Information not available 07/31/2014 Smoke Alarm In Home Yes Information not available 07/31/2014 Do You Have Smoke And Carbon Monoxide Detectors In Your Home? Yes [email or web address] Information not available 02/06/2021 Are You Passively Exposed To Smoke? No [email or web address] Information not available 02/06/2021 Do You Or [...] 08/13/2021 Do You Use Sunscreen Routinely? Yes [email or web address] Information not available 02/06/2021 Do You Or Have You Ever Used Any Other Forms Of Tobacco Or Nicotine? No Information not available 08/13/2021 Sex: Female Functional Status Question Answer Note LastModified by Organization D etails LastModified Time What is your exercise level? Moderate [email or web address] Information not available 02/06/2021 Mental Status None recorded. Family History Relationship Description Onset Age of this Age Resolved Age Notes LastModified by Organization Details LastModified Time Maternal Grandmother Malignant neoplastic disease [email or web address] Not available 2014 09:08:48 Father No current problems or disability Not available 10/14 16:41:58 Mother No current problems or disability [email or web address] Not available 10/14 16:41:58 Notes:No FHx of [...] split virus, quadrivalent, preservative 4 [facility] 08:53:35 Td(adult) unspecified formulation 2 completed [facility] 03/14/2024 14:57:02 Td(adult) unspecified formulation 4 completed [facility] 05/21/2015 09:07:27 OPV 7 completed [facility] 05/21/2015 09:07:27 Hib, unspecified formulation 2 completed [facility] 05/21/2015 09:07:27 Hep A, unspecified formulation 5 completed [facility] 05/21/2015 09:07:27 meningococcal ACWY, unspecified formulation 4 completed [facility] 05/21/2015 09:07:27 DTaP 2 completed [facility] 05/21/2015 09:07:27 Hib, unspecified formulation 3 completed [facility] 05/21/2015 09:07:27 DTaP 2 completed [facility] 05/21/2015 09:07:27 DTaP 2 completed [facility] 05/21/2015 09:07:27 OPV 2 completed [facility] 05/21/2015 09:07:27 HPV, unspecified formulation 7 completed [facility] 05/21/2015 09:07:27 OPV 2 completed [facility] 05/21/2015 09:07:27 MMR 3 completed Solangeelisabethcharlotte PetitLUCIE [facility] 05/21/2015 09:07:27 HPV, unspecified formulation 7 completed [facility] 05/21/2015 09:07:27 Hep A, unspecified formulation 4 completed [facility] 05/21/2015 09:07:27 MMR 7 completed Solangeelisabethcharlotte PetitLUCIE [facility] 05/21/2015 09:07:27 DTaP 3 completed [facility] 05/21/2015 09:07:27 Hep B, unspecified formulation 1 completed [facility] 05/21/2015 09:07:27 Hib, unspecified formulation 2 completed [facility] 05/21/2015 09:07:27 Hep B, unspecified formulation 1 completed [facility] 05/21/2015 09:07:27 DTaP 7 completed Kenishacharlotte [facility] 05/21/2015 09:07:27 Tdap 9 completed [facility] 05/21/2015 09:07:27 HPV, unspecified formulation 7 completed Solangeelisabethcharlotte PetitLUCIE [facility] 05/21/2015 09:07:27 Hep B, unspecified formulation 1 completed [facility] 05/21/2015 09:07:27 Hib, unspecified formulation 2 completed [facility] 05/21/2015 09:07:27 OPV 3 completed [facility] 05/21/2015 09:07:27 influenza, unspecified formulation 9 completed Deborah [facility]idal [facility] 05/[facility]/2015 09:07:27 Influenza, split virus, trivalent, preservative 5 completed Katt Christiansen [facility] 08/14/2015 10:07:04 Influenza, split virus, quadrivalent, PF 8 completed Not Available [facility] 07/02/2019 02:33:02 Tdap 9 completed Not Available [facility] 07/02/2019 02:23:36 Influenza, split virus, quadrivalent, preservative 7 completed Brenda Toth RMA [facility] 03/14/2024 14:57:02 Influenza, split virus, quadrivalent, preservative 9 completed Brenda Toth RMA [facility] 03/14/2024 14:57:02 Influenza, split virus, quadrivalent, preservative 0 completed Larisa Ervin [facility] 03/21/2020 08:26:28 COVID-19, mRNA, LNP-S, PF, 100 mcg/0.5mL dose or 50 mcg/0.25mL dose 1 completed Bren[facility]oth [facility] 03/14/2024 14:57:02 COVID-19, mRNA, LNP-S, PF, 100 mcg/0.5mL dose or 50 mcg/0.25mL dose 1 completed Brenda [facility]oth [facility] 03/14/2024 14:57:02 COVID-19, mRNA, LNP-S, PF, 30 mcg/0.3 mL dose 1 completed Bren[facility]oth [facility] 03/14/2024 14:57:02 Influenza, split virus, quadrivalent, preservative 1 completed Brenda [facility]oth [facility] 03/14/2024 14:57:02 Influenza, MDCK, quadrivalent, PF 2 completed Brenda [facility]oth [facility] 03/14/2024 14:56:46 COVID-19, mRNA, LNP-S, bivalent, PF, 30 mcg/0.3 mL dose 2 completed Rinku Waters [place] [facility] 03/04/2022 08:08:57 Influenza, split virus, quadrivalent, PF 3 completed Brenda Toth [facility] 03/14/2024 14:57:02 Influenza, split virus, trivalent, preservative 2 completed Brenda [facility]oth [facility] 03/14/2024 14:56:46 Influenza, MDCK, quadrivalent, PF 7 completed Brenda Toth [facility] 03/14/2024 14:57:02 Influenza, MDCK, quadrivalent, PF 9 completed Brenda [facility]oth [facility] 03/14/2024 14:57:02 COVID-19, mRNA, LNP-S, PF, 100 mcg/0.5mL dose or 50 mcg/0.25mL dose 1 completed Brenda Toth [facility] 03/14/2024 14:57:02 COVID-19, mRNA, LNP-S, PF, 100 mcg/0.5mL dose or 50 mcg/0.25mL dose 1 completed Bren[facility]oth [facility] 03/14/2024 14:57:02 COVID-19, mRNA, LNP-S, PF, 50 mcg/0.5 mL 3 completed Brenda Toth [facility] 03/14/2024 14:57:02 Td(adult) unspecified formulation 2 completed Brenda [facility]oth [facility] 03/14/2024 14:57:02 Influenza, split virus, quadrivalent, PF 3 completed Brenda Toth GREGORIOReyes tellez, [facility] 03/14/2024 14:57:02 Influenza, split virus, quadrivalent, PF 1 completed Brenda Toth ANIDE [facility] 03/14/2024 14:57:02 Pneumococcal conjugate PCV20, polysaccharide [id number] conjugate, adjuvant, PF 4 completed [facility] 06/24/2024 09:04:00 COVID-19, mRNA, LNP-S, PF, 50 mcg/0.5 mL 4 completed [facility] 06/24/2024 09:04:00 Influenza, split virus, trivalent, PF 4 completed [facility] 06/24/2024 09:04:00 Past Encounters Encounter ID Performer Location Encounter Start Date Encounter Closed Date Diagnosis/Indication Diagnosis SNOMED-CT Code Diagnosis ICD10 Code Diagnosis Note [id number] Sejal Rodriguez MD FP, [facility], OFFICE [address] [place] [address] 06/24/2024 08:57:49 06/28/2024 13:35:14 Lightheadedness 060348712 R42 possible pots-type orthostasi s vs hypoglycem iapt to track episodes, track eating/dri nking and activities leading up to eventwill review in 3 mosdiscuss ed keeping sugary candy and water with himeating well balanced snack every 2-3 hours Rheumatoid arthritis 698 37799 M06.9 in care w/ rheumtrial ing humira + methotrexa te, just started yesterday Eczema 21137053 L30.9 improved on methotrexa te Eating disorder 10017268 F50.9 hx arfid-type eating that has improvedwo rking w/ nutritioni st, seeing them next week Pain in axilla 486369865 M79.629 pt reporting swelling in R axillano tenderness , no lumps palpatedve ry mild asymmetry, possible difference in healing/sc ar tissue from top surgerydis cussed chest exams at well visit to palpate lymph nodes and tissue along scar line to screen for breast cancer [id number] Maryam Diez DO , [facility], OFFICE [address] [place] [address] 07/08/2024 08:35:33 07/08/2024 09:09:00 Plantar wart of left foot [id number] 4336470 B07.0 pared down and treated with liquid nitrogenpt tolerated wellf/u 2 weeks for recheck Lightheadedness 73649072 8 R42 suspect due to reactive hypoglycem iapt to work on eating more regular snacks, higher protein meals History of eating disorder 5303027535 17488 Z86.59 hx arfid-type eating that has improved over the past 6 yearsworki ng w/ nutritioni st [id number] Maryam Diez DO , [facility], [address] [place] [address] 07/12/2024 11:58:10 07/13/2024 15:19:14 Acute otitis media 9805635 H65.01 early stages of R AOMpt w/ [...] course of doxy 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 consider referral to allergy and immunology for further discussion was previously in care w/ Mesha Rosenthal and she is now self-payha s appt w/ ENT end of [facility] Concerns Section Related Observation LastModified by Organization Detai ls LastModified Time None Recorded Concern Status LastModified by Organization Details LastModified Time None Recorded Payers Encounter Date Sequence Insurance Name Policy Number Policy Martines Covered Member ID Martines Member ID Guarantor Name 07/12/2024 1 [place] [employer] [place] [id number] Bigg Montalvo [id number] Bigg Montalvo Notes Date Note Type Note Provider Name and Address Organization Details Recorded Time 07/12/2024 text/html Pt was seen 2 mo s ago for R AOM, treated with doxy x 1 week and sx resolvednoticed tonsil stones about a week ago2 days ago tonsil stone came out, sore throatyesterday ear started hurtingtoday a little worsesimilar sx progression to last time supposed to take methotrexate tonight and humira Maryam Diez, DO [address] [place] [address], [place], [address], [facility] [place]/12/2024 14:19:22
--- OUTSIDE RECORDS SUMMARY | 2024-08-09 12:58 | XMS_ITS | Data Portability ---
Author Organization [facility], , [facility], OFFICE Address [address] [place] [address] Care Team Providers Care Wafer Fabricator Name Role Phone GAURAV NOBLES Rate Engineer HADLEY PHAN Classroom Technology Technician KEVIN FOX Rate Engineer [facility] Strategic Planner [phone] ARISTEO PRATHER Rolls Baker JORGE GODINEZ Rate Engineer KEVIN ELLISON Primary Care Provider Assessment Encounter Date Assessment Date Assessment LastModified by Organization Details LastModified Time 07/23/2024 07/23/2024 After a discussion of treatment options, which included consideration of best practices and patient preferences, the following treatment plan and objectives were adopted: [email or web address] Not available 07/23/2024 11:37:32 07/29/2024 07/29/2024 OT visit # 8 Discharge [...] instruction; modalities; taping; orthotics/splint fabrication/dee dee tamiko/management [email or web address] Not available 07/29/2024 15:01:46 Plan of Treatment Reminders Order Date Submit Date Provider Last Modified By Organization Details Last Modified Time Details Appointments Follow Up, 2024 01:45P M Kevin Ellison BUSINESS INTEGRATION MANAGER Not available Not available Not available Follow Up, 2024 09:00A M JENAE MarksP Not available Not available Not available Wellness Visit 2024 11:15A M Kevin Ellison BUSINESS INTEGRATION MANAGER Not available Not available Not available Lab None recorded. Referral None recorded. Procedures polysomno graphy (PROC) 2024 025 [email or web address] Sleep Med - [facility], [address] [place] [address], [id number], 07/22/2024 10:55:46 Surgeries None recorded. Imaging None recorded. Medication Orders None recorded. Patient TargetsNo targets recorded. Patient Instructions Encounter Date Encounter Id Patient Instructions Last Modified By Organization Details Last Modified Time 07/29/2024 [id number] Access Code: [email or web address] URL: [email or web address] Date: 02/28/2024 Prepared by: Britt Parra Exercises - 4 Forearm Stretches - 2-3 x daily - 7 x weekly - 1 sets - 2 reps - 45 sec hold Access Code: [email or web address] URL: [email or web address]/ Date: 03/11/2024 Prepared by: Britt Puriarunitejose daniel Exercises - Thumb Strengthening Stabilization CMC - [...] - 10 reps Access Code: [email or web address] URL: [email or web address]/ Date: 04/01/2024 Prepared by: Britt Iaarunitelli Exercises - Thumb Strengthening Stabilization CMC - [...] weekly - 3 sets - 10 reps [email or web address] Not available 07/29/2024 10:17:22 Reason for Referral None Reported. Results Created Date Observation Date Name Description Value Unit Range Abnormal Flag Note LastModifiedBy Organization Detail LastModifiedTime Result Notes None recorded. Procedures Surgical History Date Name Laterality Status Provider Name and Address Organization Details Recorded Time Dominique - Colonoscopy completed Kevin Fox MD [address] [place] [address], [id number], [facility] [place] 12/08/2023 13:05:50 Imaging Results None recorded. Procedure Notes None recorded. Medical Equipment None Reported. Allergies Allergen ID Allergen Name Allergen Category Reaction Reaction Severity Criticality Documentation Date Start Date Code Code System Note Provider Name and Address Organization Details Recorded Time 775863 Product containin g penicilli n (product) medicatio n hives Not available Not available 12/04/2023 41773 [id number] SNOMED JOSE Mendoza RN [facility] 4 15:11:15 Medications Name Sig Start Date Stop Date Status Note LastModified by Organization Details LastModified Time cyclobenz aprine 10 mg tablet TK 1 T PO TID FOR 7 DAYS 10/29 completed Not Available Not Available Not Available ivermecti n 3 mg tablet active Not Available Not Available Not Available cromolyn 100 mg/5 mL oral concentra te 05/06 completed Jose Francisco tip --- 4 not currentl y, may in [...] Available Not Available Not Available Hypodermi c [place] 23 gauge x 1 03/21 completed Not Available Not Available Not Available ketorolac 10 mg tablet TAKE 1 TABLET BY MOUTH EVERY 6 HOURS NEEDED FOR PAIN 08/28 completed Not Available Not Available Not Available dexametha sone 0.5 mg/5 mL oral solution PLEASE SEE ATTACHED FOR DETAILED DIRECTIO NS 11/26 completed No longer taking Not Available Not Available Not Available BD Regular Bevel [place] 18 gauge x 1 USE DIRECTED WEEKLY [...] Not Available Not Available BD Regular Bevel [place] 25 gauge x 5/8 USE DIRECTED WEEKLY [...] foam 02/01 completed 4 prescrib ed by [facility] Not Available Not Available Not Available OptiChamb er Isha [facility] spacer USE DIRECTED . 03/21 completed Not Available Not Available Not Available testoster one undecanoa te 750 mg/3 mL (250mg/mL ) intramusc ular solution Inject 3 mL by intramus cular route. active [facility]io n [facility] Not Available Not Available Not Available Flulaval Quad 7613-4243 60 mcg (15 mcg x 4)/0.5 mL [...] IM syringe VACCINAT ION ADMINIST ERED BY KVNG SANCHEZ 11/15 completed Not Available Not Available Not Available Paxlovid 300 mg (150 mg x 2)-100 mg tablets in a dose pack TAKE DIRECTED 06/19 completed Not Available Not Available Not Available Vitals None Recorded Social History Question Answer Notes LastModified by Organizat ion Details LastModified Time What Is Your Level Of Alcohol Consumption? [...] Do You Use Insect Repellent Routinely? Yes [email or web address] Information not available 02/06/2021 Live Alone Or With Others? With Others Information not available 07/31/2014 Marital Status [email or web address] Informatio n not available 11/21/2019 Mosquito Repellent Used Routinely No Information not available 10/29/2018 What Was The Date Of Your Most Recent Tobacco Screening? 08/05/2024 Information not available 08/05/2024 How Many Children Do You Have? 0 Information not available 07/31/2014 What Is Your Relationship Status? [email or web address] Information not available 02/06/2021 Do You Use Your Seat Belt Or Car Seat Routinely? Yes [email or web address] Information not available 02/06/2021 Seat Belts Used Routinely Yes Information not available 07/31/2014 Are You Sexually Active? No Recently Had Negative STI (Tapestry) In 2013 Information not available 07/31/2014 Smoke Alarm In Home Yes Information not available 07/31/2014 Do You Have Smoke And Carbon Monoxide Detectors In Your Home? Yes [email or web address] Information not available 02/06/2021 Are You Passively Exposed To Smoke? No Information not available 02/06/2021 Do You Or [...] 08/13/2021 Do You Use Sunscreen Routinely? Yes [email or web address] Information not available 02/06/2021 Do You Or Have You Ever Used Any Other Forms Of Tobacco Or Nicotine? No Information not available 08/13/2021 Sex: Female Functional Status Question Answer Note LastModified by Organization D etails LastModified Time What is your exercise level? Moderate [email or web address] Information not available 02/06/2021 Mental Status None recorded. Family History Relationship Description Onset Age of this Age Resolved Age Notes LastModified by Organization Details LastModified Time Maternal Grandmother Malignant neoplastic disease [email or web address] Not available 2014 09:08:48 Father No current problems or disability Not available 10/14 16:41:58 Mother No current problems or disability [email or web address] Not available 10/14 16:41:58 Notes:No FHx of DM. No known FHx of colon CA. No family hx of OA or osteoporosis Brother 2 - Mustapha Danlos, schizophrenia, genetic/chromosomal facial deformities Brother 1 - Bipolar, homeless. Father - genetically no ear on R side Mom & Dad - healthy Medical History No medical history recorded. Past Encounters Encounter ID Performer Location Encounter Start Date Encounter Closed Date Diagnosis/Indication Diagnosis SNOMED-CT Code Diagnosis ICD10 Code Diagnosis Note [id number] Katt Christiansen MA , [facility], [address] [place] [address] 07/31/2014 08:25:42 07/31/2014 09:40:46 [id number] Katt Christiansen MA , [facility], [address] [place] [address] 08/17/2014 10:18:53 08/17/2014 11:50:03 [id number] Paulino Mayes MD , [facility], [address] [place] [address] 09/04/2014 09:23:07 09/04/2014 10:01:[id number] [facility], [address] [place] [address] 01/08/2015 16:42:12 01/08/2015 17:21:30 [id number] [facility], [address] [place] [address] 02/26/2015 16:37:25 02/26/2015 17:02:[id number] [facility], [address] [place] [address] 03/09/2015 17:04:28 03/09/2015 17:47:02 [id number] Mirta Sands, RN, BSN [facility], [address] [place] [address] 04/06/2015 14:31:41 04/09/2015 09:43:34 [id number] Paulino Mayes MD , [facility], OFFICE [address] [place] [address] 08/14/2015 10:29:13 08/14/2015 11:08:19 [id number] MD LASHONDA Naqvi, [facility], [address] [place] [address] 04/29/2016 08:04:25 04/29/2016 08:39:09 [id number] Malathi Fay NP , [facility], OFFICE [address] [place] [address] 08/29/2016 10:52:18 08/29/2016 11:23:16 [id number] Katt Cardona NP , [facility], OFFICE [address] [facility] [place] [address] 10/02/2016 09:19:45 10/02/2016 09:43:53 [id number] Paulino Mayes MD , [facility], [address] [place] [address] 10/20/2016 10:05:57 10/20/2016 10:46:48 [id number] Bernarda Pisano NP , [facility], OFFICE [address] [facility] [place] [address] 12/10/2016 11:06:50 12/11/2016 11:44:53 [id number] Vivien Carly Schaffer BUSINESS INTEGRATION MANAGER-[facility], [facility], [address] [place] [address] 01/21/2017 16:27:24 01/22/2017 07:59:48 [id number] Harmeet Hutchinson MD , [facility], OFFICE [address] [facility] [place] [address] 01/29/2017 14:52:34 01/29/2017 15:22:13 [id number] Paulino Mayes MD , [facility], [address] [place] [address] 05/13/2017 09:52:38 05/13/2017 10:34:50 [id number] Sendy Guan i , [facility], [address] [place] [address] 07/03/2017 16:00:55 07/06/2017 08:14:28 [id number] Carissa Sanchez MD , [facility], OFFICE [address] [facility] [place] [address] 07/10/2017 16:28:08 07/10/2017 17:03:57 [id number] Paulino Mayes MD , [facility], [address] [place] [address] 08/26/2017 09:58:02 08/26/2017 16:45:00 [id number] Paulino Mayes MD , [facility], [address] [place] [address] 09/01/2017 11:46:49 09/01/2017 12:18:48 [id number] Carissa Sanchez MD , [facility], [address] [place] [address] 09/15/2017 11:01:27 09/16/2017 09:27:47 [id number] Paulino Mayes MD , [facility], [address] [place] [address] 09/22/2017 16:01:04 09/23/2017 10:47:13 [id number] Paulino Mayes MD , [facility], [address] [place] [address] 10/21/2017 10:35:06 10/21/2017 11:27:48 [id number] Pelon Torres RN [facility], [address] [address] 10/28/2017 10:57:51 10/28/2017 14:37:[id number] Sutton MD , [facility], [address] [place] [address] 11/21/2017 08:59:47 11/21/2017 10:08:33 [id number] Darrell Aguilar MD , [facility], [address] [place] [address] 03/01/2018 14:34:24 03/02/2018 15:44:37 [id number] Paulino Mayes MD , [facility], [address] [place] [address] 05/24/2018 12:10:57 05/25/2018 09:26:59 [id number] Darrell Aguilar MD , [facility], [address] [place] [address] 08/27/2018 13:28:52 08/30/2018 09:19:58 [id number] Paulino Mayes MD , [facility], [address] [place] [address] 10/29/2018 10:13:42 10/29/2018 11:18:40 [id number] Paulino Mayes MD , [facility], [address] [place] [address] 12/22/2018 08:07:21 12/22/2018 12:47:51 [id number] Paulino Mayes MD , [facility], [address] [place] [address] 05/02/2019 08:24:03 05/02/2019 11:23:21 [id number] Paulino Mayes MD , [facility], [address] [place] [address] 10/17/2019 13:29:23 10/18/2019 13:37:24 [id number] Maricarmen Aviles , [facility], [address] [place] [address] 11/05/2019 10:13:14 11/05/2019 10:45:53 [id number] Dorcas Jesus MD , [facility], [address] [place] [address] 11/16/2019 15:32:11 11/17/2019 15:00:31 [id number] Paulino Mayes MD , [facility], [address] [place] [address] 11/21/2019 08:30:31 11/23/2019 15:15:19 [id number] Darrell Aguilar MD , [facility], [address] [place] [address] 11/29/2019 09:05:12 12/02/2019 11:11:49 [id number] Shanell Gatica MD , [facility], [address] [place] [address] 12/03/2019 10:23:17 12/03/2019 10:47:44 [id number] Darrell Aguilar MD , [facility], [address] [place] [address] 12/06/2019 08:48:37 12/07/2019 15:08:[id number] Martins MD , [facility], OFFICE [address] [facility] [place] [address] 01/27/2020 10:55:43 01/30/2020 12:45:10 [id number] Paulino Mayes MD , [facility], [address] [place] [address] 01/30/2020 14:58:58 01/31/2020 10:25:46 [id number] Felipe Mullen MD , [facility], [address] [place] [address] 02/18/2020 15:41:52 02/21/2020 11:37:43 [id number] Paulino Mayes MD FP, [facility], [address] [place] [address] 03/21/2020 08:23:29 03/22/2020 15:36:02 [id number] Diana caro PA-C FP, [facility], [address] [place] [address] 08/28/2020 09:14:42 08/30/2020 16:09:21 [id number] Paulino Mayes MD , [facility], [address] [place] [address] 02/06/2021 08:58:09 02/06/2021 10:05:21 [id number] Darrell Aguilar MD , [facility], [address] [place] [address] 02/07/2021 11:28:33 02/08/2021 09:04:31 [id number] Larisa Ervin LPN , [facility], [address] [place] [address] 03/06/2021 09:57:27 03/07/2021 11:57:30 [id number] Maryam Diez DO FP, [facility], [address] [place] [address] 07/22/2021 08:48:12 07/25/2021 13:13:42 [id number] Harmeet Hutchinson MD , [facility], [address] [place] [address] 07/22/2021 13:39:30 08/12/2021 08:40:39 [id number] Darrell Aguilar MD , [facility], [address] [place] [address] 08/13/2021 08:03:39 08/15/2021 15:10:46 [id number] Darrell Aguilar MD , [facility], [address] [place] [address] 09/19/2021 14:16:54 09/23/2021 13:56:26 [id number] Darrell Aguilar MD , [facility], [address] [place] [address] 12/13/2021 11:57:10 12/13/2021 16:15:52 [id number] Darrell Aguilar MD , [facility], [address] [place] [address] 12/27/2021 13:41:30 12/30/2021 11:22:15 [id number] Darrell Aguilar MD , [facility], [address] [place] [address] 02/06/2022 14:44:00 02/07/2022 11:56:01 [id number] Pedro Weathers MD , [facility], [address] [place] [address] 03/07/2022 09:31:34 03/07/2022 12:51:31 [id number] Dorcas Jesus MD , [facility], [address] [place] [address] 05/13/2022 13:39:36 05/13/2022 15:22:33 [id number] Dorcas Jesus MD , [facility], [address] [place] [address] 05/25/2022 11:01:23 05/25/2022 11:41:32 [id number] [facility] [address] [place] [address] 05/26/2022 11:23:22 05/26/2022 14:13:52 [id number] Darrell Aguilar MD , [facility], [address] [place] [address] 06/19/2022 12:00:57 06/19/2022 17:37:28 [id number] Darrell Aguilar MD , [facility], [address] [place] [address] 07/08/2022 08:57:04 07/08/2022 12:26:04 [id number] [facility] OFFICE [address] [place] [address] 09/10/2022 08:34:16 09/10/2022 15:31:32 [id number] DO LASHONDA Jacobson, [facility], [address] [place] [address] 09/19/2022 14:00:20 09/19/2022 15:41:07 [id number] Donna Mackenzie MD , [facility], [address] [place] [address] 10/25/2022 13:13:31 10/25/2022 15:53:26 [id number] CRISTIAN Rivas, [facility], [address] [place] [address] 10/30/2022 09:24:10 10/30/2022 10:06:27 [id number] Darrell Aguilar MD , [facility], [address] [place] [address] 11/07/2022 16:06:48 11/07/2022 16:52:49 [id number] Didier Guzmán MD Sports Medicine, [address] [place] [address] 12/11/2022 08:37:02 12/11/2022 15:55:16 [id number] Cherry Willson MD , [facility], [address] [place] [address] 12/15/2022 10:57:37 12/15/2022 11:35:14 [id number] DO LASHONDA Jacobson, [facility], [address] [place] [address] 01/06/2023 11:20:32 01/06/2023 12:42:21 [id number] Harmeet Hutchinson MD , [facility], [address] [place] [address] 01/16/2023 14:30:20 01/16/2023 17:10:23 [id number] DO LASHONDA Jacobson, [facility], [address] [place] [address] 01/20/2023 11:59:42 01/20/2023 16:03:04 [id number] Lisset Diez NP , [facility], [address] [place] [address] 03/23/2023 09:21:30 03/23/2023 17:51:42 [id number] Asmita Valdez PA-C , [facility], OFFICE [address] [facility] [place] [address] 04/14/2023 08:09:42 04/14/2023 09:22:55 [id number] Steven Kam MD , [facility], [address] [place] [address] 05/02/2023 10:24:39 05/02/2023 12:05:37 [id number] MD LASHONDA Calixto, [facility], [address] [place] [address] 06/16/2023 09:38:51 06/18/2023 15:14:58 [id number] BEBO OVIEDO DO , [facility], [address] [place] [address] 08/25/2023 10:02:10 08/25/2023 10:35:43 [id number] Maryam Diez DO , [facility], [address] [place] [address] 10/06/2023 13:39:05 10/07/2023 10:16:57 [id number] Esther Sandy, PT Physical Therapy, [address] [address] 11/06/2023 08:01:38 11/10/2023 07:39:17 [id number] Esther Sandy, PT Physical Therapy, [address] [address] 11/11/2023 08:36:41 11/11/2023 11:43:01 [id number] Esther Sandy, PT Physical Therapy, [address] [address] 11/17/2023 13:05:09 11/18/2023 08:40:27 [id number] OLIVIA Marks , [facility], [address] [place] [address] 11/27/2023 13:25:24 11/27/2023 16:23:14 [id number] Esther Sandy, PT Physical Therapy, [address] [address] 11/24/2023 10:09:36 11/24/2023 14:02:24 [id number] Esther Sandy, PT Physical Therapy, [facility] [address] [facility] [place] [address] 12/01/2023 10:04:23 12/02/2023 11:29:40 [id number] Carissa Sanchez MD , [facility], [address] [place] [address] 12/02/2023 09:16:29 12/03/2023 15:03:48 [id number] Karely Valdez RN-[facility] Endoscopy , [facility] [address] [place] [address] 12/08/2023 11:20:52 12/08/2023 13:52:07 [id number] Esther Sandy, PT Physical Therapy, [address] [place] [address] 12/09/2023 09:58:07 12/09/2023 12:48:32 [id number] EMETERIO ArredondoT Physical Therapy, [address] [place] [address] 01/12/2024 09:05:12 01/13/2024 15:32:54 [id number] EMETERIO ArredondoT Physical Therapy, [address] [place] [address] 01/19/2024 10:29:37 01/22/2024 14:23:20 [id number] EMETERIO ArredondoT Physical Therapy, [address] [place] [address] 01/26/2024 10:41:09 01/26/2024 12:02:29 [id number] OLIVIA Marks , [facility], [address] [place] [address] 02/02/2024 10:54:16 02/03/2024 16:31:21 [id number] Lisset Fontana DPT Physical Therapy, [address] [place] [address] 02/02/2024 09:34:53 02/08/2024 10:06:20 [id number] EMETERIO ArredondoT Physical Therapy, [address] [place] [address] 02/09/2024 09:35:10 02/09/2024 17:21:58 [id number] Lisset Fontana, DPT Physical Therapy, [address] [place] [address] 02/19/2024 10:29:25 02/23/2024 14:08:47 [id number] Britt Iannitelli , OTR/L, CHT Physical Therapy, [address] [address] 02/26/2024 11:34:04 02/29/2024 15:48:25 [id number] Britt Iannitelli , OTR/L, CHT Physical Therapy, [address] [address] 03/04/2024 10:05:59 03/04/2024 10:59:52 [id number] Britt Iannitelli , OTR/L, CHT Physical Therapy, [address] [address] 03/11/2024 10:30:55 03/11/2024 16:12:34 [id number] Kevin Ellison, OLIVIA , [facility], [address] [place] [address] 03/15/2024 11:14:24 03/17/2024 16:36:14 [id number] Britt Iannitelli , OTR/L, CHT Physical Therapy, [address] [address] 04/01/2024 10:34:12 04/01/2024 15:21:50 [id number] Britt Iannitelli , OTR/L, CHT Physical Therapy, [address] [address] 04/08/2024 10:25:32 04/08/2024 12:03:42 [id number] Britt Iannitelli , OTR/L, CHT Physical Therapy, [address] [address] 04/15/2024 11:07:40 04/15/2024 15:34:08 [id number] Britt Iannitelli , OTR/L, CHT Physical Therapy, [address] [address] 04/26/2024 11:00:57 04/27/2024 16:04:50 [id number] MD LASHONDA Reece, [facility], [address] [place] [address] 05/06/2024 08:46:09 05/11/2024 12:07:35 [id number] OLIVIA Marks, [facility], [address] [place] [address] 05/17/2024 12:00:28 05/20/2024 11:33:05 [id number] Britt Parra , OTR/L, CHT Physical Therapy, [address] [address] 06/03/2024 11:07:37 06/06/2024 09:09:10 [id number] MD LASHONDA Reece, [facility], [address] [place] [address] 06/24/2024 08:57:49 06/28/2024 13:35:14 [id number] DO LASHONDA Jacobson, [facility], [address] [place] [address] 07/08/2024 08:35:33 07/08/2024 09:09:00 [id number] DO LASHONDA Jacobson, [facility], [address] [place] [address] 07/12/2024 11:58:10 07/13/2024 15:19:14 [id number] DO LASHONDA Jacobson [facility], [address] [place] [address] 07/19/2024 10:27:12 07/19/2024 11:11:05 [id number] CRISTIAN Fisher, [facility], [address] [place] [address] 07/23/2024 11:13:46 07/23/2024 11:43:17 [id number] Britt Parra , OTR/L, CHT Physical Therapy, [address] [address] 07/29/2024 10:08:33 08/01/2024 15:24:15 [id number] OLIVIA Marks, [facility], [address] [place] [address] 07/29/2024 15:27:29 08/04/2024 12:58:17 [id number] OLIVIA Marks, [facility], [address] [place] [address] 08/05/2024 12:05:31 08/05/2024 12:46:15 Health Concerns Section Related Observation LastModified by Organization Detai ls LastModified Time None Recorded Concern Status LastModified by Organization Details LastModified Time None Recorded Advance Directives Directive None Recorded Payers Encounter Date Sequence Insurance Name Policy Number Policy Martines Covered Member ID Martines Member ID Guarantor Name 07/19/2024 1 [place]: [place] [employer] [place] [id number] Bigg J Katia [id number] Bigg J Katia 07/23/2024 1 [place] [id number] Bigg J Katia [id number] Bigg J Katia 07/29/2024 1 [place] [id number] Bigg J Katia [id number] Bigg J Katia 07/29/2024 1 [place] [id number] Bigg J Katia [id number] Bigg J Katia 08/05/2024 1 [place] [id number] Bigg J Katia [id number] Bigg J Katia
--- OUTSIDE RECORDS SUMMARY | 2024-08-09 12:58 | XMS_ITS | Clinical Summary ---
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
[2024-08-09 18:06] LABS: MANUAL DIFF FLAG NO
[2024-08-09 18:12] LABS: Basophils Percent Auto 0.3 % (0-2); Eosinophils Absolute Auto 0.2 X10*3/uL (0.0-0.4); Eosinophils Percent Auto 2.9 % (0-4); Hematocrit 46.9 % (42.0-52.0); Hemoglobin 16.1 g/dl (14.0-18.0); Imm Gran Abs Auto 0.01 X10*3/uL (0.00-0.03); Imm Gran Pct Auto 0.1 % (0.0-0.4); Lymphocytes Absolute Auto 1.2 X10*3/uL (1.2-4.9); Lymphocytes Percent Auto 15.9 % (20-40); Mean Corpuscular HGB Conc 34.3 g/dl (31.0-36.0); Mean Corpuscular Hemoglobin 29.5 pg (27.0-33.0); Mean Corpuscular Volume 86.1 fL (80.0-98.0); Monocytes Absolute Auto 0.8 X10*3/uL (0.1-1.2); Monocytes Percent Auto 10.3 % (2-11); Neutrophils Absolute Auto 5.4 x10*3/uL (2.0-8.3); Neutrophils Percent Auto 70.5 % (45-73); Platelet Count 311 X10*3/uL (160-400); Red Blood Count 5.45 X10*6/uL (4.60-5.80); White Blood Count 7.7 X10*3/uL (4.8-10.8)
[2024-08-09 18:35] LABS: Alanine Aminotransferase 42 U/L (0-40); Aspartate Amino Transferase 28 U/L (5-37); C Reactive Protein 0.57 mg/dL (< or = 0.50); Estimated Glomerular Filt Rate > 60
[2024-08-09 18:50] LABS: Erythrocyte Sedimentation Rate 2 MM/HR (0-15)
== END 2024-08-09 10:04 | disposition home or self-care (01) ==
LOC: HO.HKASLDS 10:03
PROVIDERS: PCP Registered Nurse; Visit Provider Internal Medicine Rheumatology
DX: M06.9 Rheumatoid arthritis, unspecified (principal); Z79.899 Other long term (current) drug therapy
CPT/HCPCS: 36415; 82565; 84450; 84460; 85025; 85652; 86140

== ENCOUNTER 2024-11-01 09:58 | Outpatient (AMB) | payer BC, SELFPAY ==
--- NOTE | 2024-11-01 10:01 | A.OFFVIS_ITS ---
Vital Signs 11/01/24 10:02 Height 5 ft 4 in BP 160/78 H Blood Pressure Location Rt brachial Position Sitting Pulse 88 Pulse Source Pulse Oximeter Pulse Oximetry (%) 100 Oxygen Delivery Method Room Air Intake Visit Reasons: 3 Months Intake Note: Patient presents today for RA follow up. Allergies cefaclor [From Ceclor] Allergy (Mild, Verified 08/09/24 10:05) Hives cefuroxime Allergy (Mild, Verified 08/09/24 10:05) Hives penicillin Allergy (Mild, Uncoded 05/10/24 11:15) Hives HPI HPI 3 Months: Details: He is experiencing tonsillar stone monthly with sensation of discomfort in his tonsils for a few weeks. He feels well. No morning stiffness. He sewing. After sewing he has bilateral thumb pain. Sometimes he experiences swelling right superior knee. [facility] Medical History (Updated 11/01/24 @ 12:50 by Alberto Zacarias MD) Sleep apnea Family History Brother Mustapha-Danlos syndrome Social History Household Members: Spouse Housing: House Alcohol intake: never Patient Tobacco Use Status: Never used Tobacco Physical Exam Vital Signs: Last Vital Signs Pulse 88 11/01/24 10:02 BP 160/78 H 11/01/24 10:02 Pulse Ox 100 11/01/24 10:02 Oxygen Delivery Method Room Air 11/01/24 10:02 Const Other: General: Comfortable CVS: RRR Respiratory: clear to auscultation bilaterally. Good respiratory effort Skin: No lesions seen MSK: Tender with slight synovitis bilateral interphalangeal joints of hands. full range of motion of upper extremities. Lower extremity range of motion is normal. No ankle or MTP tenderness. Assessment & Plan Assessment & Plan (1) Rheumatoid arthritis: Comment: CDAI 9 low disease activity on current regimen. He continues to have tonsillar stones but reduced frequency. He has not required antibiotics for ear infection/block tonsillar stone since last visit. He will be following up with ENT next month for evaluation management of tonsillar stones. It would be rare for methotrexate to caused tonsillar stones. Methotrexate can increase risk for infections. I will reduce methotrexate dose with the hope that it will reduce the risk of future infections. Rheumatology history: Seronegative inflammatory arthritis. He reports being diagnosed with eczema resolved on methotrexate. I am questioning if he had psoriasis, which was also question by meat seafood associate he is on the past. MTX 12/2023- dose increased to 20 mg Q weekly caused tonsillar stones with infection. Methotrexate was then reduced to 15 mg once weekly 07/2024. Humira 06/23/2024- Code(s): M06.9 - Rheumatoid arthritis, unspecified Category: Medical Qualifiers: Rheumatoid arthritis location: multiple sites Rheumatoid factor presence: without rheumatoid factor Qualified Code(s): M06.09 - Rheumatoid arthritis without rheumatoid factor, multiple sites Plan: Continue Humira every other week Reduce methotrexate to 12.5 mg once weekly He will be following up with ENT for evaluation and management of tonsillar stones in November Labs for drug monitoring on high-risk medication ordered Return to clinic in 3 months (2) Other retirement (current) drug therapy: Code(s): Z79.899 - 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 terminal 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) drug therapy Category: Medical Plan: See above (3) Transaminitis: Comment: Resolved Code(s): R74.01 - Elevation of levels of liver transaminase levels Category: Medical Plan: Labs ordered for drug monitoring on high-risk medication Orders: Orders Alanine Aminotransferase Today Z79.60 - buttermaker continuous churn (current) use of unspecified immunomodulators and immunosuppressants Creatinine Today Z79.60 - buttermaker continuous churn (current) use of unspecified immunomodulators and immunosuppressants C Reactive Protein Today Z79.899 - Other terminal 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) drug therapy Aspartate Amino Transferase Today Z79.60 - buttermaker continuous churn (current) use of unspecified immunomodulators and immunosuppressants Complete Blood Count Auto Diff Today Z79.60 - buttermaker continuous churn (current) use of unspecified immunomodulators and immunosuppressants Erythrocyte Sedimentation Rate Today Z79.899 - Other retirement (current) drug therapy Medications: New prednisone Take 2 tablets daily for 3 days, 1 tablet daily for 3 days then stop. Take prednisone with food. 5 mg PO DIRECTED 9 tabs 0RF Changed From methotrexate sodium 20 mg (8 x 2.5 mg) PO QWEEK 24 tabs 0RF To methotrexate sodium 12.5 mg (5 x 2.5 mg) PO QWEEK 60 tabs 0RF 12 weeks Coding Level of Care Code Est Pt Level 4 (10544) Complex EM visit Add On G2211 Diagnoses Rheumatoid arthritis of multiple sites with negative rheumatoid factor M06.09 Rheumatoid arthritis location: multiple sites Rheumatoid factor presence: without rheumatoid factor Other retirement (current) drug therapy Z79.899 Transaminitis R74.01
[2024-11-01 10:02] VITALS: BP 160/78; PULSE 88; O2SAT 100
--- OUTSIDE RECORDS SUMMARY | 2024-11-01 11:07 | XMS_ITS | Clinical Summary ---
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 05/28/2022 Pseudotumor cerebri 09/18/2020 Multiple [...] 1991 HIV Screening 1991 SDOH Screening 1991 Disability Screening 1991 Alcohol/Substance Use Screening 2003 Tobacco [...] 04 HPV Vaccines Completed 03/18/2007, 10/14, 08/31/2006 Meningococcal B Vaccine Aged Out No l onger eligible based on patient's age to complete this topic Pneumococcal Vaccine: Pediatrics (0 to 5 Years) [...] MED BCBS OUT OF STATE Care Teams Incident Response Specialist Relationship Specialty Start Date End Date Micky Suárez MD [address] [place] [id number] Neurology 05/28/22 [place] [id number] [phone] Primary Care Provider 06/08/23
--- OUTSIDE RECORDS SUMMARY | 2024-11-01 11:07 | XMS_ITS | Clinical Summary ---
Author Organization [facility] Address [address] [place] [address] Care Team Providers Care Dramatic Critic Name Role Phone Lisset Diez SPIKE MACHINE HEATER Primary Care Provider [phone] Allergies Active Allergy Reactions Criticality Noted Date [...] drink = 0.6 oz pur e alcohol) Comments Unknown Sex and Gender Information Value Date Recorded Sex Assigned at Female 08/22/2024 2:19 PM EDT Legal Sex Male 8:38 AM EDT Gender Identity Male 08/22/2024 2:19 PM EDT Sexual Orientation Not on file Last Filed [...] 01/28/2023 12:18 PM EDT Plan of Treatment Upcoming Encounters Date Type Department Care Team (Late st Contact Info) Description 01/12/2025 1:30 PM EDT Appointment [facility] [address] [place] [id number] Kiln Operator: Gillian Guzmán, Roney Stanton MD [address] [place] [phone] Health Maintenance Due Date Last Done Comments HIV Screening 1991 Hepatitis C Screening 1991 Varicella Vaccines (1 of 2 - 13+ 2-dose series) 2004 Alcohol/Substance Use Screening 06/15/2024 Depression Screening and Follow-Up 06/15/2024 Social Drivers of Health Annual Screening 06/15/2024 DTaP,Tdap,and Td Vaccines (9 - Td or Tdap) 08/27/2028 08/27/2018, 06/15/2011, 09/06/2008, Additional history exists RSV Vaccine (60+ years old and patients) (1 - 1-dose 75+ series) 2066 Hepatitis B Vaccines Completed 03/10/2001, 09/29/2000, 08/24/2000 COVID-19 Vaccine Completed 03/24/2024, , 02/28/2022, Additional history exists Influenza Vaccine Completed 03/24/2024, , 02/28/2022, Additional history exists Pneumococcal Vaccine: Pediatric (0-5 Years) and At-Risk Patients (6-50 Years) Aged Out 03/24/2024 No longer eligible based on patient's age to complete this topic Insurance BCBS OUT OF STATE PPO Care Teams Dramatic Critic Relationship Specialty Start Date End Date Lisset Diez NP [address] [place] [address] PCP - General 11/11/22
--- OUTSIDE RECORDS SUMMARY | 2024-11-01 11:07 | XMS_ITS | Data Portability ---
Author Organization [facility], , [facility], OFFICE Address [address] [place] [address] Care Team Providers Care Supply Analyst Name Role Phone GAURAV NOBLES Rn Supplemental HADLEY PHAN Stock Mover KEVIN FOX Rn Supplemental [phone] [facility] Software Test Automation Engineer ARISTEO PRATHER Merchandiser Retail Representative [phone] JORGE GODINEZ Rn Supplemental KEVIN RIBEIRO Primary Care Provider Assessment Encounter Date Assessment [...] Organization Details Last Modified Time Details Appointments Wellness Visit 30 2024 11:15A M OLIVIA Marks Not available Not available Not available Lab H pylori urea breath test, co2 infrared 2024 025 [facility], [address] [place] [address], [id number], 10/07/2024 15:22:42 Referral None recorded. Procedures None recorded. Surgeries None recorded. Imaging None recorded. Medication Orders hydrocort isone-kathi tic acid 1 %-2 % ear drops 2024 025 [facility]/Pharmacy #[id number], [address] [place], [address], 09/09/2024 11:20:55 azelastin e 137 mcg (0.1 %) nasal spray 2024 025 [facility]/Pharmacy #[id number], [address] [place], [address], 09/09/2024 11:20:56 Patient TargetsNo targets recorded. Patient Instructions Encounter Date Encounter Id Patient Instructions Last Modified By Organization Details Last Modified Time 07/29/2024 [id number] Access Code: [email or web address] URL: [email or web address] Date: 02/28/2024 Prepared by: Britt Parra Exercises - 4 Forearm Stretches - 2-3 x daily - 7 x weekly - 1 sets - 2 reps - 45 sec hold Access Code: [email or web address] URL: [email or web address] Date: 03/11/2024 Prepared by: Britt Iaarunitelli Exercises - Thumb [...] - 10 reps Access Code: [email or web address] URL: [email or web address] Date: 04/01/2024 Prepared by: Britt Iannitelli Exercises - Thumb Strengthening Stabilization [facility] - [...] Name and Address Organization Details Recorded Time 4 Dominique - Colonoscopy completed Kevin Fox MD [address] [place] [address], [id number], [facility] 12/08/2023 13:05:50 Imaging Results None recorded. Procedure Notes None recorded. Medical Equipment None Reported. Allergies Allergen ID Allergen Name Allergen Category Reaction Reaction Severity Criticality Documentation Date Start Date Code Code System Note Provider Name and Address Organization Details Recorded Time 127967 Product containin g penicilli n (product) medicatio n hives Not available Not available 12/04/2023 [id number] SNOMED JOSE Mendoza RN [facility] 4 15:11:15 Medications Name Sig Start Date Stop Date Status Note LastModified by Organization Details LastModified Time cyclobenz aprine 10 mg tablet TK 1 T PO TID FOR 7 DAYS 10/29 completed Not Available Not Available Not Available ivermecti n 3 mg tablet active Not Available Not Available Not Available cromolyn 100 mg/5 mL oral concentra te 05/06 completed Jose Franciscorob whelan --- 4 not currentl y, may [...] Available Not Available Not Available Hypodermi c Inverness 23 gauge x 1 03/21 completed Not Available Not Available Not Available ketorolac 10 mg tablet TAKE 1 TABLET BY MOUTH EVERY 6 HOURS NEEDED FOR PAIN 08/28 completed Not Available Not Available Not Available dexametha sone 0.5 mg/5 mL oral solution PLEASE SEE ATTACHED FOR DETAILED DIRECTIO NS 11/26 completed No longer taking Not Available Not Available Not Available BD Regular Bevel Inverness 18 gauge x 1 USE DIRECTED WEEKLY [...] INTO AFFECTED EAR(S) 4 TIMES A DAY active Not Available Not Available No t Available benzonata te 100 mg capsule 02/17 [...] Not Available Not Available No t Available azelastin e 137 mcg (0.1 %) nasal spray SPRAY 2 SPRAYS BY INTRANAS AL ROUTE TWICE A DAY active Not Available Not [...] Not Available Not Available BD Regular Bevel Inverness 25 gauge x 5/8 USE DIRECTED WEEKLY [...] foam 02/01 completed 4 prescrib ed by [facility] Not Available Not Available Not Available OptiChamb er Isha [facility] spacer USE DIRECTED . 03/21 completed Not Available Not Available Not Available testoster one undecanoa te 750 mg/3 mL (250mg/mL ) intramusc ular solution Inject 3 mL by intramus cular route. active injectio n every 10 weeks at [facility] Not Available Not Available Not Available Flulaval Quad [id number] 60 mcg (15 mcg x 4)/0.5 mL [...] ORANGE JUICE PO QAM 30 MIN B KEWRIN 05/24 completed patient d/c 05/24/20 18 [email or web address] Not Available Not Available Not Available Humira(CF ) Pen 40 mg/0.4 mL subcutane ous kit active Not Available Not Available Not Available Xyosted 75 mg/0.5 mL subcutane ous auto-inje ctor INJECT 0.5 ML (75 MG TOTAL) UNDER THE SKIN EVERY 7 DAYS. active Not Available Not Available No t Available Flucelvax Quad [id number] (PF) 60 mcg (15 mcg x 4)/0.5 mL IM syringe VACCINAT ION ADMINIST ERED BY KVNG SANCHEZ 11/15 completed Not Available Not Available Not Available Paxlovid 300 mg (150 mg x 2)-100 mg tablets in a dose pack TAKE DIRECTED 06/19 completed Not Available Not Available Not Available Vitals None Recorded Social History Question Answer Notes LastModified by Organizat ion Details LastModified Time Do You Wear A Helmet When Biking? Yes Information not available 10/29/2018 What Is Your Level Of Caffeine Consumption? Occasional Chocolate - Not Coffee Or Tea, No Soda Information not available 03/15/2024 How Much Tobacco Do You Chew? None Information not available 08/14/2015 What Type Of Diet Are You Following? REGULAR Information not available 07/31/2014 Which Illicit Or Recreational Drugs Have You Used? Mj Gummies Information not available 03/15/2024 Education Post Graduate Informatio n not available 10/29/2018 Have There Been Any Changes To Your Family Or Social Situation? No [email or web address] Information not available 01/06/2023 How Many Days In The Past Year Have You Had A Heavy Drinking Consumption (4+ Female, 5+ Male)? 0 Information not available 07/31/2014 Are There Any Guns Present In Your Home? No Information not available 07/31/2014 Do You Use Insect Repellent Routinely? Yes [email or web address] Information not available 02/06/2021 Live Alone Or With Others? With Others Information not available 07/31/2014 Marital Status [email or web address] Informatio n not available 11/21/2019 Mosquito Repellent Used Routinely No Information not available 10/29/2018 What Was The Date Of Your Most Recent Tobacco Screening? 10/07/2024 [email or web address] Information not available 10/07/2024 How Many Children Do You Have? 0 Information not available 07/31/2014 What Is Your Relationship Status? [email or web address] Information not available 02/06/2021 Do You Use Your Seat Belt Or Car Seat Routinely? Yes [email or web address] Information not available 02/06/2021 Seat Belts Used Routinely Yes Information not available 07/31/2014 Are You Sexually Active? No Recently Had Negative STI (Tapestry) In 2013 Information not available 07/31/2014 Smoke Alarm In Home [facility] not available 07/31/2014 Do You Have Smoke And Carbon Monoxide Detectors In Your Home? Yes [email or web address] Information not available 02/06/2021 Are You Passively Exposed To Smoke? No [email or web address] Information not available 02/06/2021 How Much Tobacco Do You Smoke? No Information not available 01/30/2020 What Types Of Sporting Activities Do You Participate In? None Information not available 10/29/2018 General Stress Level Medium Information not available 10/29/2018 Do You Use Sunscreen Routinely? Yes [email or web address] Information not available 02/06/2021 Sex: Female Functional Status Question Answer Note LastModified by Organizat ion Details LastModified Time Do you use any illicit or recreational drugs? No Information not available 08/13/2021 Do you or have you ever used any other forms of tobacco or nicotine? No Information not available 08/13/2021 What is your level of alcohol consumption? None [email or web address] Information not available 09/01/2017 Do you or have you ever used smokeless tobacco? Never used smokeless tobacco Information not available 05/02/2019 Are you currently employed? 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 Never used electronic cigarettes Information not available 05/02/2019 What is your exercise level? Moderate [email or web address] Information not available 02/06/2021 Mental Status None recorded. Family History Relationship Description Onset Age of this Age Resolved Age Notes LastModified by Organization Details LastModified Time Maternal Grandmother Malignant neoplastic disease fkim Not available 2014 09:08:48 Father No current problems or disability [email or web address] Not available 10/14 16:41:58 Mother No current problems or disability [email or web address] Not available 10/14 16:41:58 Notes:No FHx of [...] SNOMED-CT Code Diagnosis ICD10 Code Diagnosis Note [id number] Paulino Mayes MD , [facility], OFFICE [address] [place] [address] 07/31/2014 08:25:42 07/31/2014 09:40:46 [id number] Abigail Black MD , [facility], OFFICE [address] [place] [address] 08/17/2014 10:18:53 08/17/2014 11:50:03 [id number] Paulino Mayes MD , [facility], [address]ICE [address] [place] [address] 09/04/2014 09:23:07 09/04/2014 10:01:49 [id number] Paulino Mayes MD [facility], OFFICE [address] [place] [address] 01/08/2015 16:42:12 01/08/2015 17:21:30 [id number] Bebo Thomas MD , [facility], OFFICE [address] [place] [address] 02/26/2015 16:37:25 02/26/2015 17:02:55 [id number] Paulino Mayes MD , [facility], OFFICE [address] [place] [address] 03/09/2015 17:04:28 03/09/2015 17:47:02 [id number] Paulino Mayes MD , [facility], OFFICE [address] [place] [address] 04/06/2015 14:31:41 04/09/2015 09:43:34 [id number] Paulino Mayes MD , [facility], OFFICE [address] [place] [address] 08/14/2015 10:29:13 08/14/2015 11:08:19 [id number] Paulino Mayes MD , [facility], OFFICE [address] [place] [address] 04/29/2016 08:04:25 04/29/2016 08:39:09 [id number] Bebo Thomas MD , [facility], OFFICE [address] [place] [address] 08/29/2016 10:52:18 08/29/2016 11:23:16 [id number] Katt Cardona NP , [facility], OFFICE [address] [place] [address] 10/02/2016 09:19:45 10/02/2016 09:43:53 [id number] Paulino Mayes MD , [facility], OFFICE [address] [place] [address] 10/20/2016 10:05:57 10/20/2016 10:46:48 [id number] Paulino Mayes MD , [facility], OFFICE [address] [place] [address] 12/10/2016 11:06:50 12/11/2016 11:44:53 [id number] Vivien Schaffer [employer] [facility], [facility], OFFICE [address] [place] [address] 01/21/2017 16:27:24 01/22/2017 07:59:48 [id number] Harmeet Hutchinson MD , [facility], OFFICE [address] [place] [address] 01/29/2017 14:52:34 01/29/2017 15:22:13 [id number] Paulino Mayes MD , [facility], OFF[address] [place] [address] 05/13/2017 09:52:38 05/13/2017 10:34:50 [id number] Bebo Thomas MD , [facility], OFFICE [address] [place] [address] 07/03/2017 16:00:55 07/06/2017 08:14:28 [id number] Carissa Sanchez MD , [facility], OFFICE [address] [place] [address] 07/10/2017 16:28:08 07/10/2017 17:03:57 [id number] Paulino Mayes MD , [facility], OFFICE [address] [place] [address] 08/26/2017 09:58:02 08/26/2017 16:45:00 [id number] Bebo Thomas MD , [facility], OFFICE [address] [place] [address] 09/01/2017 11:46:49 09/01/2017 12:18:48 [id number] Carissa Sanchez MD , [facility], OFFICE [address] [place] [address] 09/15/2017 11:01:27 09/16/2017 09:27:47 [id number] Paulino Mayes MD , [facility], OFFICE [address] [place] [address] 09/22/2017 16:01:04 09/23/2017 10:47:13 [id number] Paulino Mayes MD , [facility], OFFICE [address] [place] [address] 10/21/2017 10:35:06 10/21/2017 11:27:48 [id number] Buster Matthew MD [facility], [address] [address] 10/28/2017 10:57:51 10/28/2017 14:37:09 [id number] Kwame Ley MD , [facility], OFFICE [address] [place] [address] 11/21/2017 08:59:47 11/21/2017 10:08:33 [id number] OLIVIA Chille , [facility], OFFICE [address] [place] [address] 03/01/2018 14:34:24 03/02/2018 15:44:37 [id number] Paulino Mayes MD , [facility], OFFICE [address] [place] [address] 05/24/2018 12:10:57 05/25/2018 09:26:59 [id number] MD LASHONDA Calixto, [facility], OFFICE [address] [place] [address] 08/27/2018 13:28:52 08/30/2018 09:19:58 [id number] MD LASHONDA Naqvi, [facility], OFFICE [address] [place] [address] 10/29/2018 10:13:42 10/29/2018 11:18:40 [id number] Darrell Aguilar MD , [facility], OFF[address] [place] [address] 12/22/2018 08:07:21 12/22/2018 12:47:51 [id number] Paulino Mayes MD , [facility], OFF[address] [place] [address] 05/02/2019 08:24:03 05/02/2019 11:23:21 [id number] Paulino Mayes MD , [facility], OFF[address] [place] [address] 10/17/2019 13:29:23 10/18/2019 13:37:24 [id number] Maricarmen Aviles , [facility], OFF[address] [place] [address] 11/05/2019 10:13:14 11/05/2019 10:45:53 [id number] Paulino Mayes MD , [facility], OFF[address] [place] [address] 11/16/2019 15:32:11 11/17/2019 15:00:31 [id number] Paulino Mayes MD , [facility], OFF[address] [place] [address] 11/21/2019 08:30:31 11/23/2019 15:15:19 [id number] Paulino Mayes MD , [facility], OFF[address] [place] [address] 11/29/2019 09:05:12 12/02/2019 11:11:49 [id number] Shanell Gatica MD , [facility], OFF[address] [place] [address] 12/03/2019 10:23:17 12/03/2019 10:47:44 [id number] Paulino Mayes MD , [facility], OFF[address] [place] [address] 12/06/2019 08:48:37 12/07/2019 15:08:06 [id number] Felipe Mullen MD , [facility], OFF[address] [place] [address] 01/27/2020 10:55:43 01/30/2020 12:45:10 [id number] Carissa Sanchez MD , [facility], OFFICE [address] [place] [address] 01/30/2020 14:58:58 01/31/2020 10:25:46 [id number] Felipe Mullen MD , [facility], OFF[address] [place] [address] 02/18/2020 15:41:52 02/21/2020 11:37:43 [id number] Paulino Mayes MD , [facility], OFF[address] [place] [address] 03/21/2020 08:23:29 03/22/2020 15:36:02 [id number] Paulino Mayes MD , [facility], OFF[address] [place] [address] 08/28/2020 09:14:42 08/30/2020 16:09:21 [id number] Paulino Mayes MD , [facility], OFF[address] [place] [address] 02/06/2021 08:58:09 02/06/2021 10:05:21 [id number] Mercedes Denton PA-C , [facility], [address] [place] [address] 02/07/2021 11:28:33 02/08/2021 09:04:31 [id number] Paulino Mayes MD , [facility], OFF[address] [place] [address] 03/06/2021 09:57:27 03/07/2021 11:57:30 [id number] Darrell Aguilar MD , [facility], OFF[address] [place] [address] 07/22/2021 08:48:12 07/25/2021 13:13:42 [id number] Harmeet Hutchinson MD , [facility], OFF[address] [place] [address] 07/22/2021 13:39:30 08/12/2021 08:40:39 [id number] Darrell Aguilar MD , [facility], OFF[address] [place] [address] 08/13/2021 08:03:39 08/15/2021 15:10:46 [id number] Darrell Aguilar MD , [facility], OFF[address] [place] [address] 09/19/2021 14:16:54 09/23/2021 13:56:26 [id number] Darrell Aguilar MD , [facility], OFF[address] [place] [address] 12/13/2021 11:57:10 12/13/2021 16:15:52 [id number] Darrell Aguilar MD , [facility], OFF[address] [place] [address] 12/27/2021 13:41:30 12/30/2021 11:22:15 [id number] Darrell Aguilar MD , [facility], OFF[address] [place] [address] 02/06/2022 14:44:00 02/07/2022 11:56:01 [id number] Pedro Weathers MD , [facility], OFF[address] [place] [address] 03/07/2022 09:31:34 03/07/2022 12:51:31 [id number] Dorcas Jesus MD , [facility], [address] [place] [address] 05/13/2022 13:39:36 05/13/2022 15:22:33 [id number] Dorcas Jesus MD , [facility], [address] [place] [address] 05/25/2022 11:01:23 05/25/2022 11:41:32 [id number] Lisset Diez NP , [facility], OFF[address] [place] [address] 05/26/2022 11:23:22 05/26/2022 14:13:52 [id number] Darrell Aguilar MD , [facility], [address] [place] [address] 06/19/2022 12:00:57 06/19/2022 17:37:28 [id number] Darrell Aguilar MD , [facility], [address] [place] [address] 07/08/2022 08:57:04 07/08/2022 12:26:04 [id number] Darrell Aguilar MD , [facility], [address] [place] [address] 09/10/2022 08:34:16 09/10/2022 15:31:32 [id number] Sejal Rodriguez MD , [facility], [address] [place] [address] 09/19/2022 14:00:20 09/19/2022 15:41:07 [id number] Mesha Chacon PA-C , [facility], [address] [place] [address] 10/25/2022 13:13:31 10/25/2022 15:53:26 [id number] MD LASHONDA Calixto, [facility], [address] [place] [address] 10/30/2022 09:24:10 10/30/2022 10:06:27 [id number] Darrell Aguilar MD , [facility], [address] [place] [address] 11/07/2022 16:06:48 11/07/2022 16:52:49 [id number] Didier Guzmán MD Sports Medicine, [address] [address] 12/11/2022 08:37:02 12/11/2022 15:55:16 [id number] Darrell Aguilar MD , [facility], OFF[address] [place] [address] 12/15/2022 10:57:37 12/15/2022 11:35:14 [id number] Maryam Diez DO , [facility], [address] [place] [address] 01/06/2023 11:20:32 01/06/2023 12:42:21 [id number] Harmeet Hutchinson MD , [facility], [address] [place] [address] 01/16/2023 14:30:20 01/16/2023 17:10:23 [id number] DO LASHONDA Jacobson, [facility], [address] [place] [address] 01/20/2023 11:59:42 01/20/2023 16:03:04 [id number] DO LASHONDA Schumacher, [facility], [address] [place] [address] 03/23/2023 09:21:30 03/23/2023 17:51:42 [id number] MD LASHONDA MONROE, [facility], [address] [place] [address] 04/14/2023 08:09:42 04/14/2023 09:22:55 [id number] MD LASHONDA Hinson, [facility], [address] [place] [address] 05/02/2023 10:24:39 05/02/2023 12:05:37 [id number] DO LASHONDA Jacobson, [facility], [address] [place] [address] 06/16/2023 09:38:51 06/18/2023 15:14:58 [id number] DO LASHONDA HENAO, [facility], [address] [place] [address] 08/25/2023 10:02:10 08/25/2023 10:35:43 [id number] DO LASHONDA Jacobson, [facility], [address] [place] [address] 10/06/2023 13:39:05 10/07/2023 10:16:57 [id number] Esther Sandy, PT Physical Therapy, [address] [place] [address] 11/06/2023 08:01:38 11/10/2023 07:39:17 [id number] Esther Sandy, PT Physical Therapy, [address] [place] [address] 11/11/2023 08:36:41 11/11/2023 11:43:01 [id number] Esther Sandy, PT Physical Therapy, [address] [place] [address] 11/17/2023 13:05:09 11/18/2023 08:40:27 [id number] MD LASHONDA Reece, [facility], [address] [place] [address] 11/27/2023 13:25:24 11/27/2023 16:23:14 [id number] Esther Sandy, PT Physical Therapy, [address] [place] [address] 11/24/2023 10:09:36 11/24/2023 14:02:24 [id number] Esther Sandy, PT Physical Therapy, [address] [place] [address] 12/01/2023 10:04:23 12/02/2023 11:29:40 [id number] Carissa Sanchez MD , [facility], [address] [place] [address] 12/02/2023 09:16:29 12/03/2023 15:03:48 [id number] Kevin Fox MD [facility] , [facility] [address] [place] [address] 12/08/2023 11:20:52 12/08/2023 13:52:07 [id number] Esther Sandy, PT Physical Therapy, [address] [place] [address] 12/09/2023 09:58:07 12/09/2023 12:48:32 [id number] Lisset Fontana DPT Physical Therapy, [address] [place] [address] 01/12/2024 09:05:12 01/13/2024 15:32:54 [id number] Lisset Fontana DPT Physical Therapy, [address] [place] [address] 01/19/2024 10:29:37 01/22/2024 14:23:20 [id number] Lisset Fontana DPT Physical Therapy, [address] [place] [address] 01/26/2024 10:41:09 01/26/2024 12:02:29 [id number] Sejal Rodriguez MD , [facility], [address] [place] [address] 02/02/2024 10:54:16 02/03/2024 16:31:21 [id number] Lisset Fontana DPT Physical Therapy, [address] [place] [address] 02/02/2024 09:34:53 02/08/2024 10:06:20 [id number] Lisset Trimby, DPT Physical Therapy, [address] [place] [address] 02/09/2024 09:35:10 02/09/2024 17:21:58 [id number] EMETERIO ArredondoT Physical Therapy, [address], [place] [address] 02/19/2024 10:29:25 02/23/2024 14:08:47 [id number] Britt Parra , OTR/L, CHT Physical Therapy, [address] [address] 02/26/2024 11:34:04 02/29/2024 15:48:25 [id number] Britt Fidel , OTR/L, CHT Physical Therapy, [address] [address] 03/04/2024 10:05:59 03/04/2024 10:59:52 [id number] Britt Fidel , OTR/L, CHT Physical Therapy, [address] [address] 03/11/2024 10:30:55 03/11/2024 16:12:34 [id number] Sejal Rodriguez MD , [facility], [address] [place] [address] 03/15/2024 11:14:24 03/17/2024 16:36:14 [id number] Britt Fidel , OTR/L, CHT Physical Therapy, [address] [address] 04/01/2024 10:34:12 04/01/2024 15:21:50 [id number] Britt Jaxsonnnitemariaelenai , OTR/L, CHT Physical Therapy, [address] [address] 04/08/2024 10:25:32 04/08/2024 12:03:42 [id number] Britt Niyahitemariaelenai , OTR/L, CHT Physical Therapy, [address] [address] 04/15/2024 11:07:40 04/15/2024 15:34:08 [id number] Britt Parra , OTR/L, CHT Physical Therapy, [address] [address] 04/26/2024 11:00:57 04/27/2024 16:04:50 [id number] Sejal Rodriguez MD , [facility], [address] [place] [address] 05/06/2024 08:46:09 05/11/2024 12:07:35 [id number] Maryam Diez DO , [facility], [address] [place] [address] 05/17/2024 12:00:28 05/20/2024 11:33:05 [id number] Britt Parra , OTR/L, [facility], [address] [address] 06/03/2024 11:07:37 06/06/2024 09:09:10 [id number] Sejal Rodriguez MD , [facility], [address] [place] [address] 06/24/2024 08:57:49 06/28/2024 13:35:14 [id number] Sejal Rodriguez MD , [facility], [address] [place] [address] 07/08/2024 08:35:33 07/08/2024 09:09:00 [id number] Carissa Sanchez MD , [facility], [address] [place] [address] 07/12/2024 11:58:10 07/13/2024 15:19:14 [id number] Carissa Sanchez MD , [facility], [address] [place] [address] 07/19/2024 10:27:12 07/19/2024 11:11:05 [id number] Steven Kam MD , [facility], [address] [place] [address] 07/23/2024 11:13:46 07/23/2024 11:43:17 [id number] Britt Parra , OTR/L, [facility], [address] [address] 07/29/2024 10:08:33 08/01/2024 15:24:15 [id number] Carissa Sanchez MD , [facility], [address] [place] [address] 07/29/2024 15:27:29 08/04/2024 12:58:17 [id number] Carissa Sanchez MD , [facility], [address] [place] [address] 08/05/2024 12:05:31 08/05/2024 12:46:15 [id number] Carissa Sanchez MD , [facility], OFFICE [address] [place] [address] 08/24/2024 13:42:06 08/24/2024 14:35:28 [id number] Carissa Sanchez MD , [facility], OFFICE [address] [place] [address] 09/09/2024 10:29:24 09/12/2024 20:36:09 [id number] Carissa Sanchez MD , [facility], OFFICE [address] [place] [address] 10/07/2024 14:30:51 10/10/2024 11:13:04 Health Concerns Section Related Observation LastModified by Organization Detai ls LastModified Time None Recorded Concern Status LastModified by Organization Details LastModified Time None Recorded Advance Directives Directive None Recorded Payers Encounter Date Sequence Insurance Name Policy Number Policy Martines Covered Member ID Martines Member ID Guarantor Name 07/29/2024 1 [place] [id number] Bigg J Katia [id number] Bigg J Katia 08/05/2024 1 [place] [id number] Bigg J Katia [id number] Bigg J Katia 08/24/2024 1 [place] [id number] Bigg J Katia [id number] Bigg J Katia 09/09/2024 1 [place] [id number] Bigg J Katia [id number] Bigg Montalvo 10/07/2024 1 [place] FATIM[place] [id number] Bigg Montalvo [id number] Bigg Montalvo
--- OUTSIDE RECORDS SUMMARY | 2024-11-01 11:07 | XMS_ITS | Referral Summary ---
Author Organization [facility] Address [address] [place] [address] Care Team Providers Care Section Weaver Name Role Phone Lisset Diez SPECIAL DAY CLASS TEACHER Primary Care Provider [phone] Allergies Active Allergy Reactions Criticality Noted Date [...] Info) Description 01/12/2025 1:30 PM EDT Appointment [facility] [address] [place] [id number] Rolling Up Machine Operator: Roney Hein MD [address] [place] [phone] Insurance [place] OUT OF STATE PPO Care Teams Section Weaver Relationship Specialty Start Date End Date Lisset Diez NP [address] [place] [id number] PCP - General 11/11/22
--- OUTSIDE RECORDS SUMMARY | 2024-11-01 11:07 | XMS_ITS | Patient Health Record ---
Author Organization [facility] Address [address] [place] [address] Care Team Providers Care Healthcare Project Manager Name Role Phone Lisset Diez N.P. Primary Care Provider Steven Dunaway [phone] Allergies Allergen (clinical drug ingredient) Drug/Non Drug Allergy documented on EMR Reaction Allergy Type Onset Date Status Penicillin Unknown Drug Allergy Active Reason For Referral No Information Medications Medication SIG (Take, Route, Frequency, Duration) Notes Start Date End Date Status Flonase Active ZyrTEC Active Immunizations Vaccine Route Administration Date Status Comme nts Influenza Unknown 02/13/2022 Administered Social History Tobacco Use: Social History Observation Description Date Details (start date - stop date) Never Smoker NA - NA Tobacco Use/Smoking Question Answer Notes Patient is a nonsmoker Alcohol Screen Question Answer Notes Did you have a drink containing alcohol in the p ast year? No Points 0 Interpretation Negative Section Notes: He does not smoke no use any significant amounts of alcohol Problems Problem Type SNOMED Code ICD Code Onset Dates Problem Status W/U Status Risk Notes Problem 026946047 Nausea (R11.0) Active confirmed Problem 702987906 Early satiety (R68.81) Active confirmed Problem 508126253 Gastroesophageal reflux disease without esophagitis (K21.9) Active confirmed Plan Of Treatment Pending Test Test Name Order Date XR BARIUM SWALLOW-ESOPHAGUS 07/22/2022 XR GI SERIES 07/22/2022 Insurance Providers Payer Name Payer Address Payer Phone Subscriber Number Group Number Insured Name Patient Relationship to Insured Coverage Start Date Coverage End Date [facility] [address] [place] [address] [id number] EDEN IRVIN Self - patient is the insured Medical (General) History Medical History History ICD Code Transitioning female to male with apparent breast removal with the below surgery, as well as reported hormone replacement Kidney stone in past Denies CA,DM,CVA,Lung disease,renal dise ase EGD 2018 at [facility] ealed mild esophagitis and no hiatal hernia. Biopsies were negative for celiac disease and H. pylori. EGD in 2020 described no sign of esophagitis or hiatal hernia. Negative colonoscopy in 2018. Negative CT scan of abdomen. Followed by crimper operator jun o feels that his nocturnal symptoms of nausea and fever related to internal aspiration from reflux He is scheduled for a 48 pat r pH study and esophageal motility study in July of 2021 Surgical History Surgery Date(Month/Year) Chest surgery for his male transition [place] teeth extraction
== END 2024-11-01 10:52 | disposition home or self-care (01) ==
LOC: HO.RHES 09:58
PROVIDERS: PCP Registered Nurse; Visit Provider Internal Medicine Rheumatology
DX: M06.09 Rheumatoid arthritis without rheumatoid factor, multiple sites (principal); Z79.899 Other long term (current) drug therapy; R74.01 Elevation of levels of liver transaminase levels
CPT/HCPCS: 99214

== ENCOUNTER 2024-11-01 09:58 | Outpatient (REF) | payer BC, SELFPAY ==
--- OUTSIDE RECORDS SUMMARY | 2024-11-01 12:10 | XMS_ITS | Referral Summary ---
Author Organization [facility] Address [address] [place] [address] Care Team Providers Care Supervisor Audit Clerks Name Role Phone Lisset Diez RATE SUPERVISOR Primary Care Provider [phone] Allergies Active Allergy Reactions Criticality Noted Date [...] Info) Description 01/12/2025 1:30 PM EDT Appointment [facility] [address] [place] [phone] Costing Manager: Roney Hein MD [address] [place] [phone] Insurance [place] OUT OF STATE PPO Care Teams Supervisor Audit Clerks Relationship Specialty Start Date End Date Lisset Diez NP [address] [place] [phone] PCP - General 11/11/22
--- OUTSIDE RECORDS SUMMARY | 2024-11-01 12:10 | XMS_ITS | Clinical Summary ---
Author Organization [facility] Address [address] [place] [address] Care Team Providers Care Flat Folder Name Role Phone Lisset Diez ENTERPRISE APPLICATIONS MANAGER Primary Care Provider [phone] Allergies Active Allergy Reactions Criticality Noted Date [...] Info) Description 01/12/2025 1:30 PM EDT Appointment [facility] [address] [place] [address] Concentrator Operator: Gillian Guzmán, Roney Stanton MD [address] [place] [phone] Health Maintenance Due Date Last Done Comments [...] BCBS OUT OF STATE PPO Care Teams Flat Folder Relationship Specialty Start Date End Date Lisset Diez NP [address] [place] [address] PCP - General 11/11/22
--- OUTSIDE RECORDS SUMMARY | 2024-11-01 12:11 | XMS_ITS | Clinical Summary ---
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
--- OUTSIDE RECORDS SUMMARY | 2024-11-01 12:11 | XMS_ITS | Data Portability ---
Author Organization [facility], , [facility] Address [address] [place] [address] Care Team Providers Care Beam Press Operator Name Role Phone GAURAV NOBLES Manager Branch [phone] HADLEY PHAN Tissue Rewinder TYLER FOX Manager Branch [phone] [facility] Distance Education Coordinator [phone] ARISTEO ARANA Irrigation Laborer [phone] JORGE GODINEZ Manager Branch MACRINA ELLISON Primary Care Provider [phone] Assessment Encounter Date Assessment Date Assessment LastModified [...] urea breath test, co2 infrared 2024 025 [facility], [address] [place] [address], [address], 10/07/2024 15:22:42 Referral None recorded. Procedures None recorded. Surgeries None recorded. Imaging None recorded. Medication Orders hydrocort isone-kathi tic acid 1 %-2 % ear drops 2024 025 [facility] #[id number], [address] [place], [address], 09/09/2024 11:20:55 azelastin e 137 mcg (0.1 %) nasal spray 2024 025 [facility] #[id number], [address] [place], [address], 09/09/2024 11:20:56 Patient TargetsNo targets recorded. Patient Instructions Encounter Date Encounter Id Patient Instructions Last Modified By Organization Details Last Modified Time 07/29/2024 [id number] Access Code: [email or web address] URL: [email or web address] Date: 02/28/2024 Prepared by: Britt Parra Exercises - 4 Forearm Stretches - 2-3 x daily - 7 x weekly - 1 sets - 2 reps - 45 sec hold Access Code: [email or web address] URL: [email or web address] Date: 03/11/2024 Prepared by: Britt Iagabby Exercises - Thumb Strengthening Stabilization CMC - [...] - 10 reps Access Code: [email or web address] URL: [email or web address] Date: 04/01/2024 Prepared by: Britt Iannitelli Exercises [...] Organization Detail LastModifiedTime Result Notes None recorded. Problems Name Problem SNOMED Code Status Onset Date Resolution Date Notes Provider Name and Address Organization Details Recorded Time Disorder of endocrine system 807919618 Active Transgende r. Pap/HPV negative ( 9). Lisset Diez NP [address] [place] [address] LUCIE grubbs, [address] [place] [address] 3 12:12:10 Elevated blood-pres sure reading without diagnosis of hypertensi on 106893137 Active 2017 Carissa Sanchez MD [address] [place], [place] [address]Kishore, LUCIE, [address], [facility] 8 11:33:54 Eating disorder 53696659 Active 2017 Carissa Sanchez MD [address] [place], [place] [address]Kishore, LUCIE, [address], [facility] [place] 8 11:33:57 Anxiety 39202390 Active 2018 Lisset Diez NP [address] [place], [place] [address]Kishore, LUCIE, [address], [facility] [place] 3 08:43:53 Gastroesop hageal reflux disease 634589934 Active 2021 Mercedes Denton PA-C [address] [place], [place] [address]K[place]ore, LUCIE, [address], [facility] [place] 2 13:21:24 Chronic gastritis 5665304 Active 2022 Dx on EGD Lisset Diez NP [address] [place], [place] [address], [address], [facility] [place] 3 09:08:48 Eczema 33254719 Active 2022 Whole life using triamcinol one cream Lisset Diez NP [address] [place], [place] [address]Kishore, LUCIE, [address], [facility] [place] 3 09:50:07 Hiatal hernia with gastroesop hageal reflux 700300259 Active 2022 Lisset Diez NP [address] [place], [place] [address], [address], [facility] [place] 3 13:41:58 Disorder of connective tissue 336149626 Active 2023 Maryam Diez DO [address] [place] [address] [place], [address], [facility] [place] 4 14:09:58 Rheumatoid arthritis 71611152 Active 2023 Macrina Ellison, OLIVIA [address] [place], [place] [address], [address], [facility] [place] 4 13:25:16 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 Procedures Surgical History Date Name Laterality Status Provider Name and Address Organization Details Recorded Time 04/15/20 70633: Therapeutic Exercise completed Britt Parra OTR/L, CHT [address] [place] [address], [address], [facility] 04/15/2024 11:13:30 04/15/20 81457: Therapeutic Activities - Direct 1:1 completed Britt Parra OTR/L, CHT [address] [place] [address], [address], [facility] [place] 04/15/2024 11:13:30 04/08/20 70076: Therapeutic Exercise completed Britt Parra OTR/L, CHT [address] [place] [address], [address], [facility] [place] 04/08/2024 12:02:39 04/08/20 87655: Therapeutic Activities - Direct 1:1 completed Britt Parra OTR/L, CHT [address] [place] [address], [address], [facility] [place] 04/08/2024 12:02:56 04/01/20 76783: Therapeutic Exercise completed Britt Parra OTR/L, CHT [address] [place] [address], [address], [facility] [place] 04/01/2024 10:36:29 04/01/20 71894: Manual Therapy completed Britt Parra OTR/L, CHT [address] [place] [address], [address], [facility] [place] 04/01/2024 10:36:29 03/11/20 24 63083: Therapeutic Exercise completed Britt Parra, OTR/L, CHT [address] [place], [address], [facility] [place] 03/11/2024 09:59:58 03/11/20 24 03287: Manual Therapy completed Britt Parra, OTR/L, CHT [address] [place], [address], [facility] [place] 03/11/2024 09:59:58 03/04/20 24 69691: Therapeutic Exercise completed Britt Parra, OTR/L, CHT [address] [place], [address], [facility] [place] 03/04/2024 10:42:06 03/04/20 24 81384: Manual Therapy completed Britt Parra, OTR/L, CHT [address] [place], [address], [facility] [place] 03/04/2024 10:42:03 02/26/20 24 Smoking Cessation Counselling completed Britt Parra OTR/L, CHT [address] [place], [address], [facility] [place] 02/25/2024 22:34:40 02/26/20 24 Physical Activity Counselling completed Britt Parra, OTR/L, CHT [address] [place], [address], [facility] [place] 02/25/2024 22:34:40 02/26/20 24 97737: OT Eval, Low Complexity completed Britt Parra, OTR/L, CHT [address] [place], [address], [facility] [place] 02/25/2024 22:34:40 02/19/20 24 22528: Therapeutic Exercise completed EMETERIO ArredondoT [address] [place], [address], [facility] [place] 02/19/2024 10:34:54 02/19/20 24 49808: Manual Therapy completed Lisset Fontana DPT [address] [place], [address], [facility] [place] 02/19/2024 10:34:54 02/19/20 24 Neuromuscular re-education completed Lisset Fontana DPT [address] [place], [address], [facility] [place] 02/19/2024 10:34:54 02/19/20 24 Treatment and Advice completed Lisset Fontana DPT [address] [place], [address], [facility] [place] 02/19/2024 10:34:54 02/09/20 24 81812: Therapeutic Exercise completed Lisset Fontana DPT [address] [place], [address], [facility] [place] 02/09/2024 10:11:32 02/09/20 24 13253: Manual Therapy completed Lisset Fontana DPT [address] [place], [address], [facility] [place] 02/09/2024 10:10:58 02/09/20 24 Neuromuscular re-education completed Lisset Fontana DPT [address] [place], [address], [facility] [place] 02/09/2024 10:11:02 02/09/20 Treatment and Advice completed Lisset Fontana DPT [address] [place], [address], [facility] [place] 02/09/2024 10:09:07 02/02/20 24 77132: Therapeutic Exercise completed Lisset Fontana DPT [address] [place], [address], [facility] [place] 02/07/2024 23:13:01 02/02/20 24 24682: Manual Therapy completed Lisset Fontana DPT [address] [place], [address], [facility] [place] 02/07/2024 23:14:16 02/02/20 24 Neuromuscular re-education completed Lisset Fontana DPT [address] [place], [address], [facility] [place] 02/07/2024 23:12:57 02/02/20 24 Treatment and Advice completed Lisset Fontana DPT [address] [place], [address], [facility] [place] 02/07/2024 23:12:25 01/26/20 24 03550: Therapeutic Exercise completed Lisset Fontana DPT [address] [place], [address], [facility] [place] 01/26/2024 11:07:53 01/26/20 24 95503: Manual Therapy completed Lisset Fontana DPT [address] [place], [address], [facility] [place] 01/26/2024 11:07:34 01/26/20 24 Neuromuscular re-education completed Lisset Fontana DPT [address] [place], [address], [facility] [place] 01/26/2024 11:07:44 01/26/20 24 Treatment and Advice completed Lisset Fontana DPT [address] [place], [address], [facility] 01/26/2024 11:07:21 01/19/20 24 47737: Therapeutic Exercise completed Lisset Fontana DPT [address] [place], [address], [facility] [place] 01/22/2024 10:12:08 01/19/20 24 77483: Manual Therapy completed Lisset Fontana DPT [address] [place], [address], [facility] [place] 01/22/2024 10:12:39 01/19/20 24 Treatment and Advice completed Lisset Fontana DPT [address] [place], [address], [facility] 01/22/2024 10:12:05 Imaging Results None recorded. Procedure Notes None recorded. Medical Equipment None Reported. Allergies Allergen ID Allergen Name Allergen Category Reaction Reaction Severity Criticality Documentation Date Start Date Code Code System Note Provider Name and Address Organization Details Recorded Time 430085 Product containin g penicilli n (product) medicatio n hives Not available Not available 07/31/2014 58555 8008 LUCIE Hurt MA - [facility] 5 08:53:35 017344 amoxicill in medicatio n hives Not available Not available 07/31/2014 723 [facility] 5 08:[facility]:35 982341 Ceftin medicatio n hives Not available Not available 07/31/2014 60143 6 [facility] 5 08:53:35 369943 Ceclor medicatio n hives Not available Not available 07/31/2014 57465 5 [facility] 5 08:53:35 901000 albuterol medicatio n tachycard ia moderate Not available 03/21/2020 435 RxNorm back spasm s Larisa VALERIE Ervin [facility] 0 08:24:58 981994 Substance with sulfonami de structure and antibacte rial mechanism of action (substanc e) medicatio n Not available Not available Not available 03/15/2024 04799 8003 SNOMED ? as child Brenda Toth, A [facility] 4 11:26:10 Medications Name Sig Start Date [...] Available Not Available Not Available Hypodermi c [facility] 23 gauge x 1 03/21 completed Not Available Not Available Not Available ketorolac 10 mg tablet TAKE 1 TABLET BY MOUTH EVERY 6 HOURS NEEDED FOR PAIN 08/28 completed Not Available Not Available Not Available dexametha sone 0.5 mg/5 mL oral solution PLEASE SEE ATTACHED FOR DETAILED DIRECTIO NS 11/26 completed No longer taking Not Available Not Available Not Available BD Regular Bevel [facility] 18 gauge x 1 USE DIRECTED WEEKLY [...] Not Available Not Available BD Regular Bevel [facility] 25 gauge x 5/8 USE DIRECTED WEEKLY [...] foam 02/01 completed 4 prescrib ed by [facility] Not Available Not Available Not Available [facility] spacer USE DIRECTED . 03/21 completed Not Available Not Available Not Available testoster one undecanoa te 750 mg/3 mL (250mg/mL ) intramusc ular solution Inject 3 mL by intramus cular route. active injectio n every 10 weeks at [facility] Not Available Not Available Not Available Flulaval Quad 7599-4766 60 mcg (15 mcg x 4)/0.5 mL IM suspensio n active Not Available Not Available Not Available Afluria (PF) 45 mcg (15 mcg x 3)/0.5 mL IM syringe TO BE ADMINIST ERED BY [employer] FOR IMMUNIZA TION active Not Available Not [...] IM syringe VACCINAT ION ADMINIST ERED BY [employer] ST 11/15 completed Not Available Not Available [...] % 78 /min 92 mm[Hg] 60 mm[Hg] Brenda Toth [facility] 5 15:32:42 Date Recorded Body height Body temperature Heart rate Systolic blood pressure Diastolic blood pressure Provider Name and Address Organization Details Last Updated DateTime 08/05/2024 162.56 cm 97.9 [degF] 84 /min 98 mm[Hg] 60 mm[Hg] Rd Gallo, [facility] 5 12:15:10 Date Recorded Body height Oxygen saturation Oxygen saturation in Arterial blood by Pulse oximetry Heart rate Systolic blood pressure Diastolic blood pressure Provider Name and Address Organization Details Last Updated DateTime 5 162.56 cm 99 % 99 % 90 /min 124 mm[Hg] 64 mm[Hg] Brenda Janey, [facility] 5 13:48:53 Date Recorded Body height Oxygen saturation Oxygen saturation in Arterial blood by Pulse oximetry Heart rate Systolic blood pressure Diastolic blood pressure Provider Name and Address Organization Details Last Updated DateTime 5 162.56 cm 99 % 99 % 88 /min 98 mm[Hg] 58 mm[Hg] Brenda Janey [facility] 5 10:33:52 Date Recorded Body height Heart rate Oxygen saturation Oxygen saturation in Arterial blood by Pulse oximetry Systolic blood pressure Diastolic blood pressure Provider Name and Address Organization Details Last Updated DateTime 5 162.56 cm 82 /min 99 % 99 % 108 mm[Hg] 58 mm[Hg] Pratibha Giraldo MA [facility] 5 14:46:07 Social History Question Answer Notes LastModified by Organizat ion Details LastModified Time Tobacco Smoking Status [facility]oker [facility] 07/31/2014 08:56:21 Do You Wear A Helmet When Biking? [...] Do You Use Insect Repellent Routinely? Yes [email or web address] Information not available 02/06/2021 Live Alone Or With Others? With Others Information not available 07/31/2014 Marital Status [email or web address] Informatio n not available 11/21/2019 Mosquito Repellent Used Routinely No Information not available 10/29/2018 What Was The Date Of Your Most Recent Tobacco Screening? 10/07/2024 [email or web address] Information not available 10/07/2024 How Many Children Do You Have? 0 Information not available 07/31/2014 What Is Your Relationship Status? [email or web address] Information not available 02/06/2021 Do You Use Your Seat Belt Or Car Seat Routinely? Yes [email or web address] Information not available 02/06/2021 [facility]at Bel[email or web address] Information not available 07/31/2014 Are You Sexually Active? No Recently Had Negative STI (Tapestry) In 2013 Information not available 07/31/2014 Smoke Alarm In Home Yes [email or web address] Information not available 07/31/2014 Do You Have Smoke And Carbon Monoxide Detectors In Your Home? Yes [email or web address] Information not available 02/06/2021 Are You Passively Exposed To Smoke? No [email or web address] Information not available 02/06/2021 How Much Tobacco Do You Smoke? No Information not available 01/30/2020 What Types Of Sporting Activities Do You Participate In? None Information not available 10/29/2018 General Stress Level Medium Information not available 10/29/2018 Do You Use Sunscreen Routinely? Yes [email or web address] Information not available 02/06/2021 Sex: Female Functional [...] 05/02/2019 What is your exercise level? Moderate [email or web address] Information not available 02/06/2021 Mental Status None recorded. Family History Relationship Description Onset Age of this Age Resolved Age Notes LastModified by Organization Details LastModified Time Maternal Grandmother Malignant neoplastic disease [email or web address] Not available 2014 09:08:48 Father No current problems or disability Not available 10/14 16:41:58 Mother No current problems or disability Not available 10/14 16:41:58 Notes:No FHx of [...] quadrivalent, PF 6 completed Not Available [facility] 02:21:07 Influenza, split virus, quadrivalent, preservative 4 completed LUCIE Lange [facility] 07/31/2014 08:53:35 Td(adult) unspecified formulation 2 completed [facility] 03/14/2024 14:57:02 Td(adult) unspecified formulation 4 completed LUCIE Hankins [facility] 05/21/2015 09:07:27 OPV 7 completed LUCIE Hankins [facility] 05/21/2015 09:07:27 Hib, unspecified formulation 2 completed Joeleen Dulude, [place] [facility] 05/21/2015 09:07:27 Hep A, unspecified formulation 5 completed [facility] 05/[facility]/2015 09:07:27 meningococcal ACWY, unspecified formulation 4 completed Kenishacharlotte PetitLUCIE [facility] 05/21/2015 09:07:27 DTaP 2 completed [facility] 05/21/2015 09:07:27 Hib, unspecified formulation 3 completed [facility] 05/21/2015 09:07:27 DTaP 2 completed [facility] 05/21/2015 09:07:27 DTaP 2 completed [facility] 05/21/2015 09:07:27 OPV 2 completed [facility] 05/21/2015 09:07:27 HPV, unspecified formulation 7 completed [facility] 05/21/2015 09:07:27 OPV 2 completed Solangejennifer PetitLUCIE [facility] 05/21/2015 09:07:27 MMR 3 completed [facility] 05/21/2015 09:07:27 HPV, unspecified formulation 7 completed [facility] 05/21/2015 09:07:27 Hep A, unspecified formulation 4 completed [facility] 05/21/2015 09:07:27 MMR 7 completed [facility] 05/21/2015 09:07:27 DTaP 3 completed [facility] 05/21/2015 09:07:27 Hep B, unspecified formulation 1 completed Deborah Vidal [facility] 05/21/2015 09:07:27 Hib, unspecified formulation 2 completed Deborah Vidal [facility] 05/21/2015 09:07:27 Hep B, unspecified formulation 1 completed Deborah Vidal [facility] 05/21/2015 09:07:27 DTaP 7 completed Deborah Vidal [facility] 05/21/2015 09:07:27 Tdap 9 completed Deborah Vidal [facility] 05/21/2015 09:07:27 HPV, unspecified formulation 7 completed Deborah Vidal [facility] 05/21/2015 09:07:27 Hep B, unspecified formulation 1 completed Deborah Vidal [facility] 05/21/2015 09:07:27 Hib, unspecified formulation 2 completed Deborah Vidal [facility] 05/21/2015 09:07:27 OPV 3 completed Deborah Vidal [facility] 05/21/2015 09:07:27 influenza, unspecified formulation 9 completed Deborah Vidal [facility] 05/21/2015 09:07:27 Influenza, split virus, trivalent, preservative 5 completed [facility] 08/14/2015 10:07:04 Influenza, split virus, quadrivalent, PF 8 completed Not Available [facility] 07/02/2019 02:33:02 Tdap 9 completed Not Available [facility] 07/02/2019 02:23:36 Influenza, split virus, quadrivalent, preservative 7 completed [facility] 03/14/2024 14:57:02 Influenza, split virus, quadrivalent, preservative 9 completed Brenda Toth RMA [facility] 03/14/2024 14:57:02 Influenza, split virus, quadrivalent, preservative 0 completed Larisa Ervin LPN [facility] 03/21/2020 08:26:28 COVID-19, mRNA, LNP-S, PF, 100 mcg/0.5mL dose or 50 mcg/0.25mL dose 1 completed Brenda Toth RMA [facility] 03/14/2024 14:57:02 COVID-19, mRNA, LNP-S, PF, 100 mcg/0.5mL dose or 50 mcg/0.25mL dose 1 completed Brenda [facility]oth [facility] 03/14/2024 14:57:02 COVID-19, mRNA, LNP-S, PF, 30 mcg/0.3 mL dose 1 completed Brenda [facility]oth [facility] 03/14/2024 14:57:02 Influenza, split virus, quadrivalent, preservative 1 completed Brenda [facility]oth [facility] 03/14/2024 14:57:02 Influenza, MDCK, quadrivalent, PF 2 completed Brenda [facility]oth [facility] 03/14/2024 14:56:46 COVID-19, mRNA, LNP-S, bivalent, PF, 30 mcg/0.3 mL dose 2 completed Rinku Waters MA [facility] 03/04/2022 08:08:57 Influenza, split virus, quadrivalent, PF 3 completed Brenda Toth RMA [facility] 03/14/2024 14:57:02 Influenza, split virus, trivalent, preservative 2 completed Brenda Toth R[facility] 03/14/2024 14:56:46 Influenza, MDCK, quadrivalent, PF 7 completed Brenda Toth R[facility] 03/14/2024 14:57:02 Influenza, MDCK, quadrivalent, PF 9 completed Brenda Toth [facility] 03/14/2024 14:57:02 COVID-19, mRNA, LNP-S, PF, 100 mcg/0.5mL dose or 50 mcg/0.25mL dose 1 completed Brenda Toth R[facility] 03/14/2024 14:57:02 COVID-19, mRNA, LNP-S, PF, 100 mcg/0.5mL dose or 50 mcg/0.25mL dose 1 completed GREGORIO ConnerA [facility] 03/14/2024 14:57:02 COVID-19, mRNA, LNP-S, PF, 50 mcg/0.5 mL 3 completed ANDIE Conner [facility] 03/14/2024 14:57:02 Td(adult) unspecified formulation 2 completed GREGORIO ConnerA [facility] 03/14/2024 14:57:02 Influenza, split virus, quadrivalent, PF 3 completed Brenda Toth [facility] 03/14/2024 14:57:02 Influenza, split virus, quadrivalent, PF 1 completed Brenda [facility]oth R[facility] 03/14/2024 14:57:02 Pneumococcal conjugate PCV20, polysaccharide [id number] conjugate, adjuvant, PF 4 completed [facility] 06/24/2024 09:04:00 COVID-19, mRNA, LNP-S, PF, 50 mcg/0.5 mL 4 completed [facility] 06/24/2024 09:04:00 Influenza, split virus, trivalent, PF 4 completed LUCIE Kruse [facility] 06/24/2024 09:04:00 Past Encounters Encounter ID Performer Location Encounter Start Date Encounter Closed Date Diagnosis/Indication Diagnosis SNOMED-CT Code Diagnosis ICD10 Code Diagnosis Note [id number] Paulion Mayes MD , [facility], [address] [place] [address] 07/31/2014 08:25:42 07/31/2014 09:40:46 Adult health examination [id number] Risk Assessment and Lifestyle Change Counseling . Had Pap in 2013 at [facility] (was told negative). Home/vehic le/sexual safety reviewed. Defers STI screening. Previously negative. Disorder o f endocrine system [id number] FTM transgende r patient. The RjLela castellano protocol reviewed. Previously followed by Endocrine in [place], [place]. Records requested. Continue current dose of Testostero ne. Check FLP/CMP/Te stosterone /Prolactin /CBC. Continue with MH therapy. Eruption [id number] Rash initially developed on his right forearm. 5cm x 5cm. Treated with anti-funga l for 3 weeks without significan t improvemen t. Will treat with Triamcinol one bid for 1 week, then resume Clotrimazo le. [id number] Abigail Black MD , [facility], [address] [place] [address] 08/17/2014 10:18:53 08/17/2014 11:50:03 Eruption [id number] Appearance c/w possible shingles but without pain or other classic symptoms. Possibly due to recent allergy testing, systemic reaction. 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 Also advised hypopigmen tation of the area of prior fungal infection may stay but if area gets red or larger RTC. He agrees. He reports he saw the government affairs manager today and was given a different medication , he will check if this is the the same class and not take duplicates . He will call if he has any question. [id number] Paulino Mayes MD , [facility], [address] [place] [address] 09/04/2014 09:23:07 09/04/2014 10:01:49 Disorder of endocrine system [id number] [facility] transgende r patient. The [facility] protocol reviewed. Previously followed by Endocrine in [place], [place]. Records requested. Continue current dose of Testostero ne. All labs within normal range. Continue with MH therapy. Follow up in 6 months. [id number] Paulino Mayes MD , [facility], [address] [place] [address] 01/08/2015 16:42:12 01/08/2015 17:21:30 Sprain of ankle [id number] Patient with right ankle sprain involving likely both ATFL and deltoid ligaments. Unknown mechanism of injury. Able to ambulate and weight bear. Recommende d RICE therapy. Ankle stirrup dispensed. Encouraged to use Ibuprofen. Will consider physical therapy if symptoms do not improve. Indication s for UC/ER use reviewed. [id number] Bebo Thomas MD , [facility], [address] [place] [address] 02/26/2015 16:37:25 02/26/2015 17:02:55 Upper respiratory infection [id number] reassuranc e. ret if not better in 2 -4 weeks [id number] Paulino Mayes MD , [facility], [address] [place] [address] 03/09/2015 17:04:28 03/09/2015 17:47:02 Disorder of endocrine system [id number] [facility] transgende r patient. The [facility] protocol reviewed. Previously followed by Endocrine in [place], [place]. Records requested. Continue current dose of Testostero ne. All labs within normal range. Continue with MH therapy. Follow up in 6 months. Sprain of ankle [id number] Patient with right ankle pain due to sprain in 12/2014. Persistent pain. Previously had a similar injury about 6 years. Admits to slight inversion when walking. Likely has ATFL and deltoid ligaments involvemen t. Able to ambulate and weight bear. Recommende d RICE therapy. Previously dispensed ankle stirrup. Encouraged to use Ibuprofen. Will refer to physical therapy. Indication s for UC/ER use reviewed. [id number] Paulino Mayes MD , [facility], [address] [place] [address] 04/06/2015 14:31:41 04/09/2015 09:43:34 Tuberculosis screening [id number] Z11.1 [id number] Paulino Mayes MD , [facility], [address] [place] [address] 08/14/2015 10:29:13 08/14/2015 11:08:19 Adult health examination 430423348 Z00.00 See Risk Assessment and Lifestyle Change Counseling section above. States undergone the series of Gardasil. Undergone negative STI screening at [facility] (04/2015). Home/vehic le screening reviewed. Tdap vaccine UTD. Pap performed today. Home/vehic le/sexual safety reviewed. Disorder o f endocrine system [id number] E34.8 FTM transgende r patient. The [facility] protocol reviewed. Previously followed by Endocrine in [place], [place]. Continue current dose of Testostero ne. All labs within normal range previously . Will repeat CMP, Prolactin, CBC, FLP and Testostero ne level. Continue with MH therapy. Follow up in 6 months. Sprain of ankle [id number] S93.401A Patient with history of right ankle pain due to sprain in 12/2014. Likely had ATFL and deltoid ligaments involvemen t. Undergone PT at [facility]. Doing markedly better. Venereal d isease screening 200821904 Z11.3 Screening for malignant neoplasm of cervix 305212589 Z12.4 [id number] Paulino Mayes MD , [facility], [address] [place] [address] 04/29/2016 08:04:25 04/29/2016 08:39:09 Active or passive immunization 617779393 Z23 Sprain of ankle 09605568 S93.401A Patient with history of right ankle pain due to sprain in 12/2014. Likely had ATFL and deltoid ligaments involvemen t. Undergoing PT at [facility]. Doing markedly better. Disorder o f endocrine system 661628811 E34.8 FTM transgende r patient. The [facility] protocol reviewed. Previously followed by Endocrine in [place]. Continue current dose of Testostero ne. All labs within normal range previously . Will repeat CMP and CBC. Continue with MH therapy. Follow up in 6 months for a PHA visit. [id number] Bebo Thomas MD , [facility], [address] [place] [address] 08/29/2016 10:52:18 08/29/2016 11:23:16 Acute upper respiratory infection 63570899 J06.9 Reassured. This may have actually been a mild case of the flu. Pt is improving. Enc. adequate fluids/res t and otc analgesics prn. F/u for worsening sx (i.e. fever, chest pain, dyspnea). [id number] Katt Cardona NP , [facility], [address] [place] [address] 10/02/2016 09:19:45 10/02/2016 09:43:53 Pain of multiple joints 64544738 M25.50 Likely overuse. But will check labs, advised re tick bite prevention . [id number] Paulino Mayes MD , [facility], [address] [place] [address] 10/20/2016 10:05:57 10/20/2016 10:46:48 Adult health examination 710961431 Z00.00 See Risk Assessment and Lifestyle Change Counseling section above. Home/vehic le/sexual safety reviewed. STI screening. Tdap UTD. Previous Pap unsatisfac tory due to scant cellularit y. Will recheck at his upcoming visit. Fracture o f phalanx of finger 07345717 S62.600A Injury occurred on 09/23/2016 while walking his dog. Minimally displaced fracture of the distal phalanx articular surface on the second digit along the ulnar side of the phalanx. Doing well. Will check X-ray to assess proper healing. Verruca plantaris 547124 08 B07.0 Left heel. Liquid nitrogen spray applied without complicati on. Patient tolerated the procedure well. Wound care reviewed. Disorder o f endocrine system 388915253 E34.8 FTM transgende r patient. The [facility] protocol reviewed. Previously followed by Endocrine in [place]. Continue current dose of Testostero ne. All labs within normal range previously . No menses. Has desirable effects. Check FLP and Testostero ne level. Venereal d isease screening 485908148 Z11.3 Safe sex discussed. Patient gives permission to send normal results via patient portal or by mail. [id number] Paulino Mayes MD , [facility], [address] [place] [address] 12/10/2016 11:06:50 12/11/2016 11:44:53 Pharyngitis 987087820 J02.9 Negative quick strep. Pt reassured. Fracture o f phalanx of finger 89286346 S62.608D Pt reporting that sometime the tip of his finger turns whitish after showering of after the gym. No pain or ecchymosis . Lasts maybe 20 minutes and goes back to normal. Pt inst not much we can do, but if it stays white or purple, becomes painful or red or really swollen, to f/u . [id number] Vivien Schaffer, [employer]IST-[employer] , [facility], [address] [place] [address] 01/21/2017 16:27:24 01/22/2017 07:59:48 Tinea pedis 6657523 B35.3 [id number] Harmeet Hutchinson MD , [facility], [address] [place] [address] 01/29/2017 14:52:34 01/29/2017 15:22:13 Diarrhea 15100804 R19.7 fluids decrease lactose and concentrat ed sweets no fried foods [id number] Paulino Mayes MD , [facility], [address] [place] [address] 05/13/2017 09:52:38 05/13/2017 10:34:50 Dermatophytosis 96203431 B35.9 Involving the interglute al area. Recommende d to apply Clotrimazo le 1% cream bid for 7-14 days. Advised to avoid anti-bacte rial soap or excessive washing. Keep the area clean and dry. Probiotic use recommende d. Fracture o f phalanx of finger 04189532 S62.600A Injury occurred on 09/23/2016 while walking his dog. Minimally displaced fracture of the distal phalanx articular surface on the second digit along the ulnar side of the phalanx. Has healed well. Feeling better. Disorder o f endocrine system 208166116 E34.8 FTM transgende r patient. The [facility] protocol reviewed. Previously followed by Endocrine in [place]. Continue current dose of Testostero ne. All labs within normal range previously . No VB. Has desirable effects. FLP and Testostero ne level. Over 4 years. Annual lab and follow up. [id number] Bebo Thomas MD , [facility], [address] [place] [address] 07/03/2017 16:00:55 07/06/2017 08:14:28 Eruption 627832155 R21 Fungal appearing rash on low back/butt. Nystatin has helped this but after a couple months, rash still there. Not sure if pt using the cream every day as prescribed . Enc. use daily until rash completely clear and will add oral antifungal weekly for the next 4 weeks. F/u if rash not clear after that. [id number] Carissa Sanchez MD , [facility], [address] [place] [address] 07/10/2017 16:28:08 07/10/2017 17:03:57 Headache 78827847 R51 pressure associated RIZZO - 3 episodes after sig time upside down on trapeze, delayed effect, pain is positional with head mvmt and pressuremi ld nausea onceno vomitingno other associated sxnormal examperhap s vascular changes creating some retraction causing headacheno personal hx migraine but family hxadvised hydration before and after trapeze sessionsla y down for 30-60 min at first sign of headacheok ay to try ibuprofenf /u if persisting or worsening [id number] Paulino Mayes MD , [facility], [address] [place] [address] 08/26/2017 09:58:02 08/26/2017 16:45:00 Iron deficiency 72294640 E61.1 Normal iron and Vitamin B12 levels, but low ferritin. Recently improved his diet. Would like to monitor further before making decision about starting Slow-Fe. Will check Ferritin level in 11/2017. Anxiety 42441501 F41.9 Long history of anxiety with recent panic attack symptoms. Undergoing individual therapy. Will start IOP through [facility]. Tried Melatonin and meditation . States a part of IOP involves DBT. Switching to a new individual therapist. Would like to defer SSRI at this time. Discussed about benzodiaze pine. Potential short-term and long-term adverse effects discussed. Start Lorazepam 0.5mg 1/2 to 1 tab 2x/week prn. Follow up in 1 month for re-evaluat ion. Disorder o f endocrine system 962117725 E34.8 FTM transgende r patient. The [facility] and [facility] protocol reviewed. Previously followed by Endocrine in [place]. Continue current dose of Testostero ne. All labs within normal range previously . No VB. Has desirable effects. Eating disorder 52624230 F50.9 Recently initiated care with [facility] . To start IOP. Screening labs overall unremarkab le. [id number] Bebo Thomas MD , [facility], [address] [place] [address] 09/01/2017 11:46:49 09/01/2017 12:18:48 Viral enteritis of intestine 95061862 A08.4 Enc. continue sips of clear fluids until nausea/vom iting has subsided and then gradually advance diet as tolerated to a BRAT type diet. Avoid dairy, greasy/fri ed or spicy foods until feeling 100% again. F/u if unable to tolerate p.o. fluids or other worrisome sx. If still diarrhea next week, f/u here and would order some stool testing. Elevated blood-pressure reading without diagnosis of hypertension 264726785 R03.0 Pt states had elevated BP's x 3 last betty at [facility]. [place] (150's sys). Reassured. BP fine today - actually on the low side. Admits gets stressed out when there for treatment. Pt has no risk factors for htn. OK to monitor BP on occasion (i.e. at [facility]) and f/u here if seems consistent ly high. Otherwise we will recheck this when he returns to see PCP next month. [id number] Carissa Sanchez MD , [facility], [address] [place] [address] 09/15/2017 11:01:27 09/16/2017 09:27:47 Elevated blood-pressure reading without diagnosis of hypertension 129357249 R03.0 pt here with c/o elevated pressures and changes with [facility] programher e is is hypertensi ve standingbu t not orthostati cthen after talking with provider BP is checked sitting and normal 120/60reas surance todayenc not to check at [facility] in the same manner, consider relaxation exercise firsthe had labs early August with the program and normal save low ferritin, he is tx with diethe feels healthyhe is not sxhe will f/u with PCP in a month at scheduled visit Eating disorder 40597673 F50.9 new dx for pttx at [facility] to eating planjuanoidi ng knowing his weightlabs reviewedf/ u with PCP in a month schedule [id number] Paulino Mayes MD , [facility], [address] [place] [address] 09/22/2017 16:01:04 09/23/2017 10:47:13 Disorder of endocrine system 218643890 E34.8 FTM transgende r patient. The [facility] and [facility] protocol reviewed. Previously followed by Endocrine in [place]. Continue current dose of Testostero ne. All labs within normal range previously . No VB. Has desirable effects. Wishes to monitor Testostero ne level annually. Check prior to Wellness visit. Elevated blood-pressure reading without diagnosis of hypertension 121580574 R03.0 Previously had elevated BP at IOP. BP here has been normal. Coontinue to monitor. Eating disorder 76824215 F50.9 Followed by [facility] and individual therapy. Iron deficiency 92578672 E61.1 Normal iron and Vitamin B12 levels, but low ferritin. Recently improved his diet. Would like to monitor further before making decision about starting Slow-Fe. Will check Ferritin level in 11/2017. Anxiety 85182622 F41.9 Long history of anxiety with recent panic attack symptoms. Undergoing individual therapy and IOP through [facility]. Tried Melatonin and meditation . States a part of IOP involves DBT. Would like to defer SSRI at this time. Hydroxyzin e has been helpful with sleep benito kauffman [id number] MD LASHONDA Naqvi, [facility], [address] [place] [address] 10/21/2017 10:35:06 10/21/2017 11:27:48 Adult health examination 089522292 Z00.00 See Risk Assessment and Lifestyle Change Counseling section above. Vaccines UTD. Home/vehic le/sexual safety reviewed. Depression screening 171 289476 Z13.89 Depression screening tool administer ed, entered into emr, scored and discussed, time greater than 7.5 minutes. Iron deficiency 91484568 E61.1 Normal iron and Vitamin B12 levels, but low ferritin. Recently improved his diet. Now on Slow-Fe daily per recommenda tion of Dr. Matthew. Will check Iron Panel and Ferritin level in 01/2018. Will also repeat TSH given borderline result. Previously normal. Atrophic vaginitis 44355 000 N95.2 Inadequate Pap sampling twice. Likely Testostero ne effect. Advised to try Estrace topical daily for 1 week prior to next Pap. He would like to pursue this at [facility]. Disorder o f endocrine system 947265987 E34.8 FTM transgende r patient. The [facility] protocol previous reviewed. Previously followed by Endocrine in [place]. Continue current dose of Testostero ne. All labs within normal range previously . No VB. Has desirable effects. Wishes to monitor Testostero ne level annually. Previously at 540 (10/2016). Elevated blood-pressure reading without diagnosis of hypertension 924522828 R03.0 Previously had elevated BP at IOP. BP here has been normal. Continue to monitor here, but advised to stop checking BP at [facility] unless symptomati c. Eating disorder 11009789 F50.9 Followed by [facility] and individual therapy. Anxiety 82232836 F41.9 Long history of anxiety with recent panic attack symptoms. Undergoing individual therapy and IOP through [facility]. Tried Melatonin and meditation . States a part of IOP involves DBT. Would like to defer SSRI at this time. Hydroxyzin e has been helpful with sleep [facility]. [id number] Buster Matthew MD [facility] [place] [address] [place] [address] 10/28/2017 10:57:51 10/28/2017 14:37:09 [id number] Kwame Ley MD , [facility], [address] [place] [address] 11/21/2017 08:59:47 11/21/2017 10:08:33 Acute upper respiratory infection 11226038 J06.9 Viral likely, but for a long time (1 week constant sx. )Tx symptoms for now and SNAP rx in case not improving Educated patient that URI is a viral illness of the upper airways. It is not bacterial and does not benefit from antibiotic s. Average duration of URI is 7-10 days but in a recent trial, treatment at 7-10 days of illness with antibiotic s, intranasal steroids, or placebo did not alter natural history at 3 weeks. Recommende d symptomati c treatments including NSAIDS, semi-uprig ht sleep position, antihistam humberto at HS, limited course of nasal sympathomi metics and/or cough syrups, and nasal saline rinses with soft squeeze bottle or Neti pot. Return for fevers > 101 for 3 days, worsening sinus pain, or failure to resolve in 2-4 weeks. [id number] OLIVIA Chilel , [facility], [address] [place] [address] 03/01/2018 14:34:24 03/02/2018 15:44:37 Allergic reaction to substance 019649628 T78.40XA Probable contact dermatitis to coffee beans, advised to avoid contact, wear long sleeves, triamcinol one cream ordered as written below. Eczema 69594076 L30.9 Both ears-advis ed to use Triamcinol one as written above. F/U PRN [id number] Paulino Mayes MD , [facility], [address] [place] [address] 05/24/2018 12:10:57 05/25/2018 09:26:59 Allergic reaction to substance 062612213 T78.40XA Probable contact dermatitis to coffee beans, advised to avoid contact, wear long sleeves, Triamcinol one cream ordered as written below. Iron deficiency 18925817 E61.1 Normal iron and Vitamin B12 levels. Recently had normal ferritin level. Stopped iron supplement ation about 1 month ago due to GI symptoms (constipat ion). Was taking iron liquid. Will recheck CBC and Ferritin in 3 months. Will stay off for now. Atrophic vaginitis 22800 000 N95.2 Inadequate Pap sampling twice. Likely Testostero ne effect. Advised to try Estrace topical daily for 1 week prior to next Pap. He would like to pursue this at [facility]. Disorder o f endocrine system 600690983 E34.8 FTM transgende r patient. The [facility] and [facility] protocol previous reviewed. Previously followed by [facility]ocrine in [place]. Continue current dose of Testostero ne. All labs within normal range previously . No VB. Has desirable effects. Wishes to monitor Testostero ne level annually. Previously at 540 (10/2016). Elevated blood-pressure reading without diagnosis of hypertension 306771263 R03.0 Previously had elevated BP at IOP. BP here has been normal. Continue to monitor here, but advised to stop checking BP at [facility] unless symptomati c. Eating disorder 70439616 F50.9 Followed by [facility] and support-gr oup therapy. Seeing Nutrition. Completed the IOP program. Anxiety 57631501 F41.9 Long history of anxiety with recent panic attack symptoms. Undergoing individual therapy and IOP through [facility]. Tried Melatonin and meditation . States a part of IOP involves DBT. Would like to defer SSRI at this time. Hydroxyzin e has been helpful with sleep maintenanc e. Active or passive immunization 250346350 Z23 [id number] Darrell Aguilar MD , [facility], [address] [place] [address] 08/27/2018 13:28:52 08/30/2018 09:19:58 Active or passive immunization 460323528 Z23 Low back strain 66737061 1 S39.012A HX and PE reassuring . No red flags. Advised rest, ice/heat, walking. Will give Rx for flexeril. F/U for worsening sx. [id number] Paulino Mayes MD , [facility], [address] [place] [address] 10/29/2018 10:13:42 10/29/2018 11:18:40 Adult health examination 662082156 Z00.00 See Risk Assessment and Lifestyle Change Counseling section above. Vaccines UTD. Home/vehic le/sexual safety reviewed. Depression screening 171 451256 Z13.89 depression screening tool administer ed, entered into emr, scored and discussed, time greater than 7.5 minutes Disorder o f endocrine system 617124457 E34.8 FTM transgende r patient. The [facility] protocol previous reviewed. Continue current dose of Testostero ne. All labs within normal range previously . No VB. Has desirable effects. Wishes to monitor Testostero ne level annually. Previously at 390 (01/2018). Elevated blood-pressure reading without diagnosis of hypertension 965154483 R03.0 Previously had elevated BP at IOP. Today's BP optimal. BP here has been normal. Continue to monitor here, but advised to stop checking BP at [facility] unless symptomati c. Eating disorder 28633233 F50.9 Followed by [facility] and individual therapy. Anxiety 38741185 F41.9 Long history of anxiety with recent panic attack symptoms. Undergoing individual therapy and IOP through [facility]. Tried Melatonin and meditation . States a part of IOP involves DBT. Would like to defer SSRI at this time. Hydroxyzin e has been helpful with sleep maintenanc e. Atrophic vaginitis 26484 000 N95.2 Inadequate Pap sampling twice. Likely Testostero ne effect. Advised to try Estrace topical twice a week for 4 weeks prior to next Pap. He would like to pursue this at [facility]. Eruption 470142927 R21 Right ring finger. Use Triamcinol one as written below. Pain of mu ltiple joints 90879911 M25.50 Involving bilateral hands and wrist worse in AM. Previously tested negative for Lyme. Check CRP, ESR, ELVA & RF. [id number] Darrell Aguilar MD , [facility], [address] [place] [address] 12/22/2018 08:07:21 12/22/2018 12:47:51 Eczema 80838211 L30.9 Reassuranc e given. Will give RX for topical steroid. RTC for worsening sx and/or any fever/chil ls, arthralgia s/myalgias . [id number] Paulino Mayes MD , [facility], [address] [place] [address] 05/02/2019 08:24:03 05/02/2019 11:23:21 Disorder of endocrine system 286863756 E34.8 FTM transgende r patient. The [facility] and [facility] protocol previous reviewed. Continue current dose of Testostero ne. All labs within normal range previously . No VB. Has desirable effects. Wishes to monitor Testostero ne level annually. Elevated blood-pressure reading without diagnosis of hypertension 016320076 R03.0 Previously had elevated BP at IOP. Today's BP optimal. BP here has been normal. Continue to monitor here, but advised to stop checking BP at [facility] unless symptomati c. Eating disorder 96610953 F50.9 Undergone [facility] evaluation . Currently seeing a loan review manager. Anxiety 51854076 F41.9 Long history of anxiety with recent panic attack symptoms. Undergoing individual therapy and IOP through [facility]. Tried Melatonin and meditation . States a part of IOP involves DBT. Would like to defer SSRI at this time. Hydroxyzin e has been helpful with sleep maintenanc e. Atrophic vaginitis 95885 000 N95.2 Inadequate Pap sampling twice. Likely Testostero ne effect. Advised to try Estrace topical twice a week for 4 weeks prior to next Pap. He would like to pursue this at [facility] (has weekend availabili ty). Dermatophytosis 11312663 B35.9 Involving the right side of the neck. Annular appearance . [id number] Paulino Mayes MD , [facility], [address] [place] [address] 10/17/2019 13:29:23 10/18/2019 13:37:24 Disorder of endocrine system 059624645 E34.8 FTM transgende r patient. The [facility] and [facility] protocol previous reviewed. Continue current dose of Testostero ne. All labs within normal range previously . No VB. Has desirable effects. Checking Testostero ne levels have been cost-prohi bitive. Will hold off on routine checks. Eating disorder 15004909 F50.9 Undergone [facility] evaluation . Currently seeing a loan review manager. Night sweats 67127864 R6 1 Elevated blood-pressure reading without diagnosis of hypertension 764701464 R03.0 Previously had elevated BP at IOP. BP here have been normal. Continue to monitor here, but advised to stop checking BP at [facility] unless symptomati c. Anxiety 34146212 F41.9 Long history of anxiety with recent panic attack symptoms. Undergoing individual therapy and IOP through [facility]. Tried Melatonin and meditation . States a part of IOP involves DBT. Would like to defer SSRI at this time. Hydroxyzin e has been helpful with sleep maintenanc e. Atrophic vaginitis 90892 000 N95.2 Inadequate Pap sampling twice. Likely Testostero ne effect. Advised to try Estrace topical twice a week for 4 weeks prior to next Pap. He would like to pursue this at [facility] (has weekend availabili ty). [id number] Maricarmen Aviles , [facility], [address] [place] [address] 11/05/2019 10:13:14 11/05/2019 10:45:53 Fever 985107892 R50.9 Given current symptoms would recommend testing for COVID-19 and self-quara ntining in the meantime. [id number] Paulino Mayes MD , [facility], [address] [place] [address] 11/16/2019 15:32:11 11/17/2019 15:00:31 Cough 06143771 R05 tested neg for covid.over all much better but with deep lingering freq. cough and wheezing.b ronchitis? discussed inhaler use, may use nyquil qhs if neededif cough persists or worsens over next weeks, will Armida done for previous missed work days [id number] Paulino Mayes MD , [facility], [address] [place] [address] 11/21/2019 08:30:31 11/23/2019 15:15:19 Adult health examination 178426195 Z00.00 See Risk Assessment and Lifestyle Change Counseling section above. Vaccines UTD. Depression screening 171 175345 Z13.89 depression screening tool administer ed, entered into emr, scored and discussed, time greater than 7.5 minutes Screening for alcohol abuse 607982123 Z13.39 Disorder o f endocrine system 744489357 E34.8 FTM transgende r patient. The Rj-Lela castellano and ISH protocol previous reviewed. Continue current dose of Testostero ne. All labs within normal range previously . No VB. Has desirable effects. Checking Testostero ne levels have been cost-prohi bitive. Will hold off on routine checks. Elevated blood-pressure reading without diagnosis of hypertension 512438122 R03.0 Previously had elevated BP at IOP. BP here have been normal. Continue to monitor here, but advised to stop checking BP at [facility] unless symptomati c. Anxiety 08617238 F41.9 Long history of anxiety with recent panic attack symptoms. Undergoing individual therapy and IOP through [facility]. Tried Melatonin and meditation . States a part of IOP involves DBT. Would like to defer SSRI at this time. Hydroxyzin e has been helpful with sleep maintenanc e. Very seldomly using. Cough 26174629 R05 Persistent cough for 2 weeks. Developed fever, cough and wheezing at the onset. Overall better, but still with cough. Using Albuterol with a spacer with some relief. Discussed indication s for empiric treatment. Trial of Azithromyc in discussed. Had negative COVID-19 test (11/05/2019 ). [id number] Paulino Mayes MD , [facility], [address] [place] [address] 11/29/2019 09:05:12 12/02/2019 11:11:49 Acute bronchitis 01894233 J20.9 DX yesterday in ER - CVOID negative. Discussed possibilit y of false negative.A dvised ample rest and hydration. COntinue prednisone as RXed in ER.Knows to RTC for worsening sx.WIll F/U next week.Patie nt agrees with plan. [id number] Shanell Gatica MD , [facility], [address] [place] [address] 12/03/2019 10:23:17 12/03/2019 10:47:44 Acute bronchitis 93997618 J20.9 [id number] Paulino Mayes MD , [facility], [address] [place] [address] 12/06/2019 08:48:37 12/07/2019 15:08:06 Acute bronchitis 10432609 J20.9 Sx gradually improving. Tested neg for COVID.Advi sed ample rest, hydration, and tesselon perles. .Knows to RTC for worsening sx.Patient agrees with plan. [id number] Felipe Mullen MD , [facility], [address] [place] [address] 01/27/2020 10:55:43 01/30/2020 12:45:10 Acute bronchitis 67597422 J20.9 - pt with ongoing intermitte nt wheezing related to acute bronchitis infection for about 4 months; has not been using albuterol due to side effects of tremors, back spasms, jitters; stopped using tessalon pearles, has not been using humidifier - discussed using a different inhaler with similar pharmacolo gic properties but less side effects which he was interested in pursuing. Risks/bene fits/side effects reviewed. Rinse mouth with water after each use, new spacer sent- may find relief with humidifier at nighttime- continue to monitor O2 when feeling symptomati c- report to ER for persistent SOB or O2 consistent ly <90% despite proper testing technique (make sure finger/wright d is warm, attached fully, take few deep breaths to see if % improves)- discussed in person auscultati on today vs respirator y clinic vs f/u in person, he will call for in house visit if symptoms continuing [id number] Carissa Sanchez MD , [facility], [address] [place] [address] 01/30/2020 14:58:58 01/31/2020 10:25:46 Acute bronchitis 25705753 J20.9 -Pt with ongoing intermitte nt wheezing, cough & fatigue related to acute bronchitis infection since October (3 months) - seen by [facility] and in ED.-Unable to tolerate albuterol s/t s/e. Now on levalbuter ol (xopenex) which temporaril y helps with wheezing.- Has tried tessalon perles, z-pack, prednisone taper.-Con tinues to monitor O2 at home.-Repo rt to ER for persistent SOB or O2 consistent ly <90% (reviewed proper technique for checking O2)- Since sx ongoing with little relief, will refer to pulmonolog ist.-Repea t CBC with differenti al as last lab (november) showed elevated WBC and eosinophil s. [id number] Felipe Mullen MD , [facility], [address] [place] [address] 02/18/2020 15:41:52 02/21/2020 11:37:43 Fever 881261230 R50.9 fever, chills, and altered taste. Set up for covid testing 02/20 at 11:20 [id number] Paulino Mayes MD , [facility], [address] [place] [address] 03/21/2020 08:23:29 03/22/2020 15:36:02 Disorder of optic nerve 50372127 H47.099 Ongoing positional RIZZO. Was getting a routine eye exam by Dr. Perla Ramírez ([facility]) last week. Found to have mild bilateral optic nerve edema. Urgent Orbital/Br ain MRI was performed (03/19/2020 ) without any concerning findings. Discussed with Dr. Ramírez and shared the normal MRI finding. She felt reassured with the result. No significan t change in vision. Intraocula r pressure was within normal range. Referral to Neurology made for further evaluation . Advised to contact the clinic with any further concerns. [id number] Paulino Mayes MD , [facility], [address] [place] [address] 08/28/2020 09:14:42 08/30/2020 16:09:21 Kidney stone 20770431 N20.0 recent dx 2 wks ago , first stone. (father has multiple renal stones)que stion of acetazolam tank as a trigger.no w on lower dose acetazol per Dr George Bedside ED ultrasound in ED: shows mild hydronephr osis of the left kidney. Right kidney is unremarkab le. No indication for repeat ultrasound at this time.CMP showed normal calcium level. Normal renal function and GFR.Enc hydration and watchful waiting for now Will recommend a strainer to keep on hand in the event of another stone. Headache 56048372 R51.9 chronicpse udotumor cerebri dx per dr georgeun vianey care of Neurology, will be seeing [facility] on 09/13 for 2nd opinionHas had improvemen t in [facility] with acetazolam tank , started in Mar 2020 and has decreased dose to ER 500 mg qd due to recent renal stone. [id number] Paulino Mayes MD , [facility], [address] [place] [address] 02/06/2021 08:58:09 02/06/2021 10:05:21 Adult health examination 100302355 Z00.00 See Risk Assessment and Lifestyle Change Counseling section above. Vaccines UTD. Depression screening 171 569488 Z13.31 depression screening tool administer ed, entered into emr, scored and discussed, time greater than 7.5 minutes Screening for alcohol abuse 470275434 Z13.39 Kidney stone 36063492 N2 0.0 Diagnosed in 08/2020. First stone. Found to have mild hydronephr osis. No longer has symptoms. Doing well. Passed the stone, but not collected. Will recommend a strainer to keep on hand in the event of another stone. No gross hematuria. Off Acetazolam tank. Headache 35225389 R51.9 Chronic RIZZO, but overall improved. Pseudotumo r cerebri diagnosed per Dr. Suárez. Under care of Neurology. Also evaluated [facility]. Has had improvemen t in RIZZO with Acetazolam tank and COVID-19 vaccines. Acetazolam tank discontinu ed after the renal stone event. RIZZO well controlled now off the medication . Dermatophytosis 71886246 B35.9 Involving the right side of the neck. Annular appearance . Disorder o f endocrine system 401571884 E34.8 Considerin g an option of Testostero ne pellets. [id number] Mercedes Denton PA-C , [facility], [address] [place] [address] 02/07/2021 11:28:33 02/08/2021 09:04:31 Pain in right thumb 1523936256 488371 M79.644 over DIP joint. No known injury/tra bc.Hx pain in multiple joints.Betsy l get Xray and order RF. 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 Discussed risk factors and options for social distancing and masking although this is difficult for young children. 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 Recommend weekly testing while working in person. Gastroesop hageal reflux disease 613676066 K21.9 Prolonged symptoms in 2019, improved [id number] Darrell Aguilar MD , [facility], [address] [place] [address] 07/22/2021 08:48:12 07/25/2021 13:13:42 Fall W19.XXXA Fell on ice last night. Did not think he hit his head.Woke this morning vomited and has low grade fever 100.4 and feels pain all over. Rapi d covid neg.Advise d ample rest and hydration and RTC for worsening sx. [id number] Harmeet Hutchinson MD , [facility], [address] [place] [address] 07/22/2021 13:39:30 08/12/2021 08:40:39 Fever 619663790 R50.9 Pain of le ft elbow joint 2132608527 5530076 M25.464 [id number] Darrell Aguilar MD , [facility], [address] [place] [address] 08/13/2021 08:03:39 08/15/2021 15:10:46 Fever 110941398 R50.9 recurrent, fleeting episodes.F ever 101 last night. This morning normal.Dis cussed possibilit y of inconsiste nt Testostero ne levels contributi ng.Will check labs. Anxiety 89388395 F41.9 Well controlled . Continue Hydroxyzin e prn. Hormone re placement therapy 697755015 Z79.890 Inconsiste nt with T administra tion d/t anxiety with self injections .Discussed possibilit y of testostero ne fluctuatio ns causing thermoregu latory issues.Pt interested in implanted T pellets.I will ask about pellet option at [facility], Pt will inquire at [facility]. Gastroesop hageal reflux disease 616349801 K21.9 Increased nausea lately. Takes omeprazole and famotidine .Followed by [facility] - has appt later today - will obtain and review notes. History of anorexia nervosa 197671650 Z86.59 Well controlled . Eating regularly. Works with therapist, Dalia Joiner, and [employer] [facility]. [id number] Darrell Aguilar MD , [facility], [address] [place] [address] 09/19/2021 14:16:54 09/23/2021 13:56:26 Fever 880307752 R50.9 resolved. Labs and CXR all wnl. Anxiety 59070972 F41.9 Well controlled . Continue Hydroxyzin e prn. Gastroesop hageal reflux disease 215222019 K21.9 well controlled . COntinue medication . History of anorexia nervosa 470306935 Z86.59 Well controlled currently. Hx restricted eating with increased stressWork s with therapist, Dalia Joiner, and [employer] [facility] [id number] Darrell Aguilar MD , [facility], [address] [place] [address] 12/13/2021 11:57:10 12/13/2021 16:15:52 Otitis externa 9493219 H60.90 Sx fairly mild at this point but has been battling this for over a month. Will treat as below. No using q tips or sticking anything into ear canals. F/u if not improving or sx worsening [id number] Darrell Aguilar MD , [facility], [address] [place] [address] 12/27/2021 13:41:30 12/30/2021 11:22:15 Otitis externa 9475132 H60.93 [id number] Darrell Aguilar MD , [facility], [address] [place] [address] 02/06/2022 14:44:00 02/07/2022 11:56:01 Contact dermatitis caused by urushiol from [employer] [facility] 376125583 L25.5 Bilateral hands. WIll RX topical CS. RTC for worsening sx. Lower abdominal pain 545 10741 R10.30 episodic x several years.Foll owed by GI who have found no sig findings on labs and imaging.Di scussed possible etiologies including effects of testostero ne. Will consider pelvic exam and possible [facility]. Transgender identity [id number] 5336273 F64.0 F-M. Also followed by karin varghese who Rxes Testostero ne. Anxiety 93086313 F41.9 Well controlled . Continue Hydroxyzin e prn. [id number] Pedro Weathers MD , [facility], [address] [place] [address] 03/07/2022 09:31:34 03/07/2022 12:51:31 COVID-19 181871403 U07.1 [id number] Dorcas Jesus MD , [facility], [address] [place] [address] 05/13/2022 13:39:36 05/13/2022 15:22:33 Pain in throat 231728932 R07.0 sick x 4 days; sore throat for 2; significan t fevers, nausea, GERD, check for strep; if not strep improving, if strep treat Leukocytosis 980708531 D 72.829 recheck [id number] Dorcas Jesus MD , [facility], [address] [place] [address] 05/25/2022 11:01:23 05/25/2022 11:41:32 Vomiting 729282738 R11.10 vomiting first thing in the morning, history of pseudotumo r cerebri Benign int racranial hypertension 08432278 G93.2 history pseudotumo r cerebri; refer to Kamini [id number] Lisset Diez NP , [facility], [address] [place] [address] 05/26/2022 11:23:22 05/26/2022 14:13:52 Postural dizziness 924618724 R42 Will refer for tilt table study Headache 36788824 R51.9 Dx of pseudotumo r cerebri -Will refer back to Neurologis t (Dr. George) as pt exp headache and will need treatment planF/u in 1-2 wks or sooner if worsening sx or no improvemen t. Dyspnea 205013292 R06.00 >1 moWill order chest Xray & f/u based on results. Leukocytosis 226297454 D 72.829 on last lab, will recheck CBC, NURSES ASSISTANT & ESR Nausea and vomiting 1692 1999 R11.2 Intermitte ntWill re-order ondansetro n. Benign int racranial hypertension 33550735 G93.2 Per neuro apptSee plan above for referring back to neuro for plan [id number] Darrell Aguilar MD , [facility], [address] [place] [address] 06/19/2022 12:00:57 06/19/2022 17:37:28 Dyspnea 177302275 R06.00 >1 moED note from 05/28/22 reviewed - chest Xray showed ground glass opacity and pt treated with abx for pneumoniaL eliot nodules found on xrayReferr ed to pulmonolog ist with whom pt was prev establishe d - aware to call for appt within week Nausea and vomiting 1692 1999 R11.2 Intermitte ntHas ondansetro nReferred to ID by [facility] ED - pt has f/u upcomingWi ll f/u with PCP after that appt. [id number] Darrell Aguilar MD , [facility], [address] [place] [address] 07/08/2022 08:57:04 07/08/2022 12:26:04 Gastroesophageal reflux disease 096893197 K21.00 Reviewed recent notes from pulm and ID.Pulm rec impedence study for reflux - and [facility]a [facility]22Req second opinion as situation requires surgery - referred to Dr Rodriguez at [facility].RTO for worsening sxWill schedule wellness. [id number] Darrell Aguilar MD FP, [facility], [address] [place] [address] 09/10/2022 08:34:16 09/10/2022 15:31:32 Fever 778369829 R50.9 Intermitte nt at nightHad work up with ID and gastroMoni tor for oral temperatur e >101Review ed adequate rest, hydration & use of anti-pyret ics as neededFoll ow up for worsening sx or if no improvemen t Nausea and vomiting 1692 1999 R11.2 Intermitte ntHas ondansetro nReferred to ID by [facility] ED - pt has f/u upcomingWi ll f/u with PCP after that appt.Also working with Gastro - barium swallow study pending. Anxiety 21646669 F41.9 CHARLES-7: 9Stopped hydroxyzin e - s/t anticholin kiley effects and concern for gastric slowing - stopped by gastroDisc ussed SSRI and pt does not want to start daily med; uses PRN infreq - a few times per monthDiscu ssed medication options and based on informatio n and pt input, will start propranolo l 10mg. can use up to twice a day.F/u in one month. [id number] Sejal Rodriguez MD FP, [facility], [address] [place] [address] 09/19/2022 14:00:20 09/19/2022 15:41:07 Cough 97402327 R05.9 Chronic with fever (on and off x 3 yrs), aspiration episodes, n/v, headaches, dizziness. None of this is new. Seen in ER on 09/16 and had neg cxr and chest CT scan. Labs all ok other than sl. elevation in wbc's. Pt concerned today because had high fever earlier (states over 102) and is supposed to be having upper endoscopy on 09/22. Has been waiting for this procedure. Discussed that his fevers have been occurring on and off x 3 yrs - not contagious . Should be okay to proceed with endoscopy. Could take tylenol in anticipati on but no s/s bacterial infection in lungs and no contraindi cation to having the endoscopy. I believe he also has f/u with ID and is followed by both pulmonary and GI for these persistent sx. Fever 058623392 R50.9 see above Snoring 55672349 R06.83 Reasonable to get sleep apnea testing d/t GERD sx that are worse lying down, hx of aspiration pneumonia and snoring. Referral sent. [id number] Mesha Chacon PA-C , [facility], [address] [place] [address] 10/25/2022 13:13:31 10/25/2022 15:53:26 Contact dermatitis 19227528 L25.9 Bilateral UE. Unclear etiology. Renewed triamcinol one- used for eczema. Short course of prednisone . Reviewed R/B/A of meds. Continue zyrtec and H2 sofi daily. Follow up if no improvemen t or with new/worsen ing symptoms. Pain of ri ght knee joint 2982228236 88959 M25.561 Injury several weeks ago. Intermitte nt discomfort . Will send to PT. [id number] Darrell Aguilar MD , [facility], [address] [place] [address] 10/30/2022 09:24:10 10/30/2022 10:06:27 Eczema 59608668 L30.9 Was seen in for hives/isaac rgic reaction,S tarted on prednisone 40mg daily for 5 daysAiden on last day & doesn't feel sx have fully resolvedDi scussed s/e & potential risks of prednisone ,RX sent for 2 additional days of 40mg Chronic gastritis 768327 9 K29.50 Followed by pulmonolog y (Dr. Arana ) and Gastro (Dr Allen) ;Small hiatal hernia that may be exacerbate d by acid refluxthey are considerin g operation -Bigg has f/u with specialist in [place] tomorrow. Hiatal her lachelle with gastroesophageal reflux 083570148 K21.[address] Nicolas ast visit note reviewedHa s f/u with specialist at [facility] [place] [id number] Darrell Aguilar MD , [facility], [address] [place] [address] 11/07/2022 16:06:48 11/07/2022 16:52:49 Pain of bilateral knee joints 1943823109 98907 M25.561 Chronic, no specific trauma; worse with activity.S aw [facility] for PT; no improvemen t & still notes swelling after hiking or strenuous activity.R eftom for xray, Dr. Gzumán Hypermobil ity of joint 039337551 R29.898 Very flex when young; less flexible with age - more joint painWill f/u with Dr. Diez for eval. [id number] Didier Guzmán MD Sports Medicine, [facility] [address] [place] [address] 12/11/2022 08:37:02 12/11/2022 15:55:16 Pain of right knee joint 9761387402 57466 M25.561 Leno is a 32-year-ol d male with bilateral knee pain as well as bilateral knee effusions of uncertain etiology and prognosis. I discussed with and causes of knee effusions both mechanical and inflammato ry. With his bilateral effusions as well as more diffuse joint discomfort I feel most likely he has an autoimmune source of his symptoms causing an inflammato ry arthropath y. He has never seen a rheumatolo gist but has had occasional blood work done with the elevated CRP in May. He states at the time he had an upper respirator y infection which may been the cause of this elevation. After discussion I have advised having repeat blood work done evaluating for autoimmune source of his symptoms. I have also asked that he have x-rays done of his right elbow to evaluate for degenerati ve changes causing his loss of range of motion. He will plan to follow up with me in 4-6 weeks. If his blood work is normal at that time he would likely benefit from a diagnostic knee aspiration . Pain of le ft knee joint 7297174235 24243 M25.562 Pain of elbow region 743 19645 M25.139 [id number] Darrell Aguilar MD , [facility], [address] [place] [address] 12/15/2022 10:57:37 12/15/2022 11:35:14 Pain of multiple joints 45623520 M25.[address] Guzmán who ordered labs & Elbow XryAiden would like to schedule R knee aspiration sooner than 01/[address] Guzmán avail, encouraged to f/u with Dr. Hutchinson, he will schedule appt when he leaves todayRefer red to [place] delayed relese sent - can take BIDAiden also inquired about low dose naltrexone (LDN) as anti-infla mmatory - for chronic pain.Will discuss at next visit and f/u. [id number] Maryam Diez DO , [facility], [address] [place] [address] 01/06/2023 11:20:32 01/06/2023 12:42:21 Adult health examination 724787955 Z00.00 32 yr old male (AFAB) in overall good health seen today for annual wellness.D iscussed current health concerns, reviewed screening recommenda tions, discussed diet, exercise, ETOH, and cardiac health as well as health goals for the coming year. Depression screening 171 610786 Z13.31 depression screening tool administer edPHQ-9 1 Screening for alcohol abuse 233246365 Z13.39 Alcohol use screening tool administer edAudit-C: 0 Anxiety 32287927 F41.9 CHARLES-7: 9 (prev)Stop ped hydroxyzin e - s/t anticholin kiley effects and concern for gastric slowing - however would like to restart as it helped by gastroDecl ined SSRI prev.Also has propranolo l - 10mg - has used twice - can cont to use for anxiety History of anemia 421515 002 Z86.2 Will ck CBC & ferritin levels. Chronic gastritis 184287 9 K29.50 Followed by pulmonolog y (Dr. Arana ) and Gastro (Dr Allen) ;Small hiatal hernia that may be exacerbate d by acid refluxthey are considerin g operation -Bigg has f/u with specialist in [place] Disorder o f endocrine system 209665083 E34.8 Followed by [facility] Eczema 20967518 L30.9 Ongoing to [place] - using steroid creamWill schedule appt w Belkis Valdez for f/uAlso on waitlist for dermatolog y. Hiatal her lachelle with gastroesophageal reflux 096016894 K21.[address] Allen Pain of ri ght knee joint 8047278922 42542 M25.561 Has been seeing PT with some improvemen tAlso has appt scheduled with Dr. Hutchinson for knee drainage - will send fluid for analysis to r/o RA Pain of mu ltiple joints 18041249 M25.[address] Guzmán who requested eval of knee fluidAiden has R knee aspiration sooner than 01/16/23Refe rred to rheumatolo [facility] diclofenac delayed release sent - can take BIDAiden also inquired about low dose naltrexone (LDN) as anti-infla mmatory - for chronic pain.Can cont to discuss [id number] Harmeet Hutchinson MD , [facility], [address] [place] [address] 01/16/2023 14:30:20 01/16/2023 17:10:23 Pain of multiple joints 05245883 M25.50 not clear hx for ra , no effusuion today so will not aspirtate joint has appt with rheum at [facility] encouraged f/u [id number] Maryam Diez DO , [facility], [address] [place] [address] 01/20/2023 11:59:42 01/20/2023 16:03:04 Pain of multiple joints 82332869 M25.50 Has appointmen t scheduled with genetics. Does not fit criteria for HEDS, though has some symptoms that overlap with other types of EDS. Vertigo [id number] R42 Only when laying down. Photodermatitis 71122227 L56.8 Avoids the sun. Eczema 60004084 L30.9 manages with topical steroids. Hiatal her lachelle with gastroesophageal reflux 948781824 K21.9 Take famotidine . Pain in fi nger of right hand 3374776035 53542 M79.644 Rec to tape pinky and ring finger together. Call with new/worsen ing symptoms or if no improvemen t. Pt agrees with plan. Chronic pain 45964868 G8 9.29 Discussed LDN. Anecdotall y does not seem to help many of the patients I have seen who have tried it. Family his tory of connective tissue disorder [id number] 9101 Z82.69 In brother. [id number] Maryam Nichols DO FP, [facility], [address] [place] [address] 03/23/2023 09:21:30 03/23/2023 17:51:42 Numbness of tongue 56773935 K14.8 Uncertain etiologyCo nt to keep food log when it occursRX for epi pen in case it is early allergyHas f/u with household assistant and rheumatolo gist Acute urticaria 03396399 9 L50.9 ?Mast cell, would like to referral to government affairs manager - Dr. Babcock - referral sentDiscus merari jones but encouraged Bigg to discuss with government affairs manager -Provider will also discuss with KARMEN as she is more knowledgea ble of EDS/allerg ic reactions. Eczema 14172700 L30.9 Ongoing to palms - using steroid creamWill schedule appt w Belkis Valdez for f/uAlso on waitlist for dermatolog y. [id number] MIRANDA Silveira MD FP, [facility], [address] [place] [address] 04/14/2023 08:09:42 04/14/2023 09:22:55 Atopic dermatitis 74115587 L20.9 Reviewed genetic component with propensity for skin reactions to external allergens. Use zyrtec 10 mgs every AM, as needed benadryl at night. Consider dietary changes to reduce inflammati on including gluten, dairy, soy, corn and sugar free lifestyle. Irritant c ontact dermatitis 077416527 L24.9 Question if allergic to putty used at work, use gloves with additional exposures. Chronic topical steroid use has its drawbacks including skin dependence and the generation of small blood vessels in the skin. We talked about being off the steroid as much as you are on . Vesicular eczema of hand 767911877 L30.8 bilateral palmar hand, and fingers, classic dyshidroti c eczema or pomphylox in context of prior atopyrecom mend to use medication s for flares and for maintenanc e with goal of good barrier functions1 . flares: use betamethas one lotion or desoximeta sone cream at first sign of itch to small bubbles.-- use twice a day for up to 10 days.-- although gloves at night may help, the increased heat of gloves can increase blood flow and make it more itchy.-- remember: COLD TO DISTRACT. Put topicals in the fridge to apply arias when itchy. Use cold compresses or small cold packs.-- use zyrtec according to wt and PCP recommenda tion.--DAMASO ID scratching or rubbing or peeling-- use Sarna metholated lotion for itch as many times during the day as needed.-- use vaseline as needed however we discussed occlusive ointments may worsen. 2. Maintenanc e:-- Vanicream lotion in summer, cream in winter. use this every day.-- avoid wet work or prolonged bathing-- support barrier function. We discussed this is triggered by stress. Mindfulnes s meditation , exercise, sleeping and eating well are all corner[place] es.Use all hypoallerg enic products including Vanicream, All Free and Clear laundry detergent no fragrant soaps or lotions.Br ing your own wash cloth and pillow case when traveling. Secondary impetiginization 319522160 L01.1 Left palm patches, treat with topical abx oint for 5-7 days Acne 21564248 L70.9 central face, while not a topic today, consider using oTc adapalene retinoids 2 nights/wee k.Use SPF every day, such as Melanie OCONNOR SPF 41 no chemical SPF, only zinc or titanium dioxide [id number] Steven Kam MD , [facility], [address] [place] [address] 05/02/2023 10:24:39 05/02/2023 12:05:37 [address]itis [address]666 J02.[address] some ear radiation, no RIZZO, fsc cough rhinorrhea or chest congestion strep negativedi agnosis of viral pharyngiti s discussed Discussed supportive measures. Follow up if not improving or with new symptoms, or any other concerns. 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 Palpitations 89519065 R0 0.2 Negative orthostati csReferred to Cardiology per note from Genetics. [id number] BEBO OVIEDO DO , [facility], [address] [place] [address] 08/25/2023 10:02:10 08/25/2023 10:35:43 Periorbital erythema 717121759 L53.9 Pleasant 33-year-ol d patient presenting with periorbita l erythema and edema that he noticed upon awakening this morning. 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 Physical exam consistent with erythema and lid swelling. He provided a picture from this morning and there is slight improvemen t in appearance . Suspect allergic contact dermatitis . Advised conservati ve care with second generation antihistam ine For relief of pruritus. He can use a low potency topical steroid such as hydrocorti sone over-the-c ounter for skin irritation ? ? 1 day. Elevated blood-pressure reading without diagnosis of hypertension 509097102 R03.0 Counseled patient on avoidance of NSAIDsLow sodium diet < 2000 mg/dayMoni tor BP at home and maintain log book readings for review at appointmen t. [id number] Maryam Diez DO , [facility], [address] [place] [address] 10/06/2023 13:39:05 10/07/2023 10:16:57 Strain of tendon of head and neck 224378786 S09.11XA Advised to use heat and demonstrat ed seated trapezius/ neck stretches. Will get neck x-ray to eval for possible instabilit y. F/u results. Strain of trapezius muscle 727395573 S46.811A See above. Neck pain 36807117 M54.2 See above. Disorder o f connective tissue 756926380 L94.[address] Larson, genetics. [id number] Esther Sandy, PT Physical Therapy, [address] [address] 11/06/2023 08:01:38 11/10/2023 07:39:17 Disorder of connective tissue 519048039 M35.9 Patient is a 33-year old who presents to physical therapy with complaint of multi-join t pain which is not changing. Physical examinatio n revealed increased AROM and joint mobility, mildly decreased hip muscle strength, hypertonic ity and TTP of cervical, thoracic, periscapul ar, and lumbar muscles bilaterall y. Findings most consistent with the effects of musculoske letal hypermobil ity coupled with inflammato ry arthritis Patient has mild-signi ficant functional limitation in their ADLs and exercise capacity, depending on the severity of their symptoms. Primary limitation s include: position change, standing for longer than 5-15 minutes, walking for longer than 50 feet to 1 mile, ascending or descending stairs, squatting, and lifting or carrying greater than 10 pounds. Skilled physical therapy is indicated to safely and progressiv bong address impairment s and functional limitation s as outlined below. Patient is a good candidate for physical therapy due to a good support system, and motivation to actively participat e in their plan of care. Short Term Goals:In 4 visits, patient will:1. Walk on level ground for 10 minutes with knee pain no greater than 3/10.2. Perform right single leg stance for 15 seconds with right ankle pain no greater than 2/10. Lokie Engineer GoalsIn 8 visits, patient will:1. Walk on uneven ground for 50 feet with knee pain no greater than 3/10.2. Walk on level ground for 20 minutes with knee pain no greater than 3/10.3. Demonstrat e independen ce with comprehens jose r HEP. Treatment Plan: Patient to return for 12 visits over 12 weeks. We expect significan t change in pain, impairment and function in this time frame. Treatment to Include: Continuing assessment , therapeuti c exercise, HEP (initiated ), neuromuscu lar re-educati on, patient education, manual therapy PRN, modalities PRN, taping PRN. [id number] Esther Sandy PT Physical Therapy, [address] [address] 11/11/2023 08:36:41 11/11/2023 11:43:01 Disorder of connective tissue 858964721 M35.9 Treatment Plan: Patient to return for 12 visits over 12 weeks. We expect significan t change in pain, impairment and function in this time frame. Treatment to Include: Continuing assessment , therapeuti c exercise, HEP (initiated ), neuromuscu lar re-educati on, patient education, manual therapy PRN, modalities PRN, taping PRN. [id number] Esther Sandy PT Physical Therapy, [address] [address] 11/17/2023 13:05:09 11/18/2023 08:40:27 Disorder of connective tissue 624659383 5.9 Treatment Plan: Patient to return for 12 visits over 12 weeks. We expect significan t change in pain, impairment and function in this time frame. Treatment to Include: Continuing assessment , therapeuti c exercise, HEP (initiated ), neuromuscu lar re-educati on, patient education, manual therapy PRN, modalities PRN, taping PRN. [id number] Sejal Rodriguez MD , [facility], [address] [place] [address] 11/27/2023 13:25:24 11/27/2023 16:23:14 Neck pain 59629300 M54.[address] updated referral for PT to work on neck paindiscus sed sx journal to notice triggers and patterns with neck pain and swelling Disorder o f connective tissue 881450262 M35.9 saw genetics and KR. neg for genetic markers for EDS but does have family hx. dx w/ undifferen tiated connective tissue d/o Tick bite 47399272 W57.X XXA tick tested and neg for lymediscus sed w/ pt protocol for prophylact ic dose of doxy, otherwise monitoring for sx and testing within 2 weeks, or having tick tested as he did this time. Seronegati ve rheumatoid arthritis 303875797 M06.00 in care w/ rheumconsi dering trial of RA medication s [id number] Esther Sandy, PT Physical Therapy, [address] [address] 11/24/2023 10:09:36 11/24/2023 14:02:24 Disorder of connective tissue 890809015 M35.9 Treatment Plan: Patient to return for 12 visits over 12 weeks. We expect significan t change in pain, impairment and function in this time frame. Treatment to Include: Continuing assessment , therapeuti c exercise, HEP (initiated ), neuromuscu lar re-educati on, patient education, manual therapy PRN, modalities PRN, taping PRN. [id number] Esther Sandy, PT Physical Therapy, [address] [address] 12/01/2023 10:04:23 12/02/2023 11:29:40 Disorder of connective tissue 690880605 M35.9 Treatment Plan: Patient to return for 12 visits over 12 weeks. We expect significan t change in pain, impairment and function in this time frame. Treatment to Include: Continuing assessment , therapeuti c exercise, HEP (initiated ), neuromuscu lar re-educati on, patient education, manual therapy PRN, modalities PRN, taping PRN. [id number] Carissa Sanchez MD , [facility], [address] [place] [address] 12/02/2023 09:16:29 12/03/2023 15:03:48 Backache 953753170 M54.9 Advised use of muscle relaxer as written below to be use with Tylenol 325 mg PO TID w/food. Use ice alternatin g w/moist heat to affected area 20 m. 3-4 X/d. F/U PRN Tick bite 86637992 W57.X XXA Tick bite approx 1.5 w. ago. Labs ordered as written below. Further treatment pending results. [id number] Tyler Fox MD Endoscopy , [address] [address] 12/08/2023 11:20:52 12/08/2023 13:52:07 [id number] Esther Sandy, PT Physical Therapy, [address] [address] 12/09/2023 09:58:07 12/09/2023 12:48:32 Disorder of connective tissue 753743337 M35.9 Treatment Plan: Patient to return for 12 visits over 12 weeks. We expect significan t change in pain, impairment and function in this time frame. Treatment to Include: Continuing assessment , therapeuti c exercise, HEP (initiated ), neuromuscu lar re-educati on, patient education, manual therapy PRN, modalities PRN, taping PRN. [id number] Lisset Fontana DPT Physical Therapy, [address] [address] 01/12/2024 09:05:12 01/13/2024 15:32:54 Hypermobility syndrome 69667973 M35.7 Neck pain 44191744 M54.2 [id number] Lisset Fontana DPT Physical Therapy, [address] [address] 01/19/2024 10:29:37 01/22/2024 14:23:20 Hypermobility syndrome 90658943 M35.7 Neck pain 97415269 M54.2 [id number] Lisset Fontana DPT Physical Therapy, [address] [address] 01/26/2024 10:41:09 01/26/2024 12:02:29 Hypermobility syndrome 13286421 M35.7 Neck pain 90740101 M54.2 [id number] Sejal Rodriguez MD , [facility], [address] [place] [address] 02/02/2024 10:54:16 02/03/2024 16:31:21 Loss of hair 168409244 L65.9 trial of oral minoxidild iscussed may cause hair growth other areas, can effect T waves, will monitor EKG if pt persisting on medication >6-12 mos. advised pt if any new cardiac sx - edema, SOB, lightheade d/dizzy, chest pain, palpitatio ns, f/u and likely d/c medwill check CBC and CMP after few mos of tx [id number] Lisset Fontana DPT Physical Therapy, [address] [place] [address] 02/02/2024 09:34:53 02/08/2024 10:06:20 Hypermobility syndrome 31425022 M35.7 Neck pain 79327050 M54.2 [id number] Lisset Fontana DPT Physical Therapy, [address] [place] [address] 02/09/2024 09:35:10 02/09/2024 17:21:58 Hypermobility syndrome 66656324 M35.7 Neck pain 20003477 M54.2 [id number] Lisset Fontana DPT Physical Therapy, [address] [place] [address] 02/19/2024 10:29:25 02/23/2024 14:08:47 Hypermobility syndrome 27381134 M35.7 Neck pain 78127973 M54.2 [id number] Britt Parra , OTR/L, CHT Physical Therapy, [address] [address] 02/26/2024 11:34:04 02/29/2024 15:48:25 Pain of left wrist 6642012026 60839 M25.532 Pain of right wrist 3169 262608 19046 M25.531 [id number] Britt Parra OTR/L, CHT Physical Therapy, [address] [address] 03/04/2024 10:05:59 03/04/2024 10:59:52 Pain of left wrist 4451838807 27311 M25.532 Pain of right wrist 3169 135099 48610 M25.531 [id number] Britt Parra , OTR/L, CHT Physical Therapy, [address] [address] 03/11/2024 10:30:55 03/11/2024 16:12:34 Pain of left wrist 0356808098 51591 M25.532 Pain of right wrist 3169 518942 49984 M25.531 [id number] Sejal Rodriguez MD , [facility], [address] [place] [address] 03/15/2024 11:14:24 03/17/2024 16:36:14 Adult health examination 684182306 Z00.00 Depression screening 171 530161 Z13.31 depression screening tool administer ed Screening for alcohol abuse 829108632 Z13.39 Alcohol use screening tool administer ed Anxiety 48241590 F41.9 stablein care w/ therapist Influenza vaccination declined 427712440 Z28.21 Eczema 30116787 L30.9 flaring since d/c prednisone has been using TCS, moisturize r, avoiding triggers, etc Loss of hair 421105256 L 65.9 trial of oral minoxidild iscussed may cause hair growth other areas, can effect T waves, will monitor EKG if pt persisting on medication >6-12 mos. advised pt if any new cardiac sx - edema, SOB, lightheade d/dizzy, chest pain, palpitatio ns, f/u and likely d/c med if no improvemen twill check CBC and CMP after few mos of tx Plantar wa rt of left foot 6465397612 5275489 B07.0 c/w plantar wartdiscus sed tx options w/ liquid n2 Pain in left thumb 73883 25258 566073 M79.645 ttp at lateral aspect of L first [facility] jointendor sing some pain with passive ROM but this is chronic for ptrest, ice, splint, ibu prnlow suspicion for fracture but can order xray to r/o Rheumatoid arthritis 698 05902 M06.9 in care w/ rheumstart ed methotrexa te 3 mos ago Intermittent fever 93094 000 R50.9 pt wondering about matt syndromead vised pt to discuss w/ his rheumatolo gist 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 he will discuss w/ transhealt h as well [id number] Britt Parra , OTR/L, CHT Physical Therapy, [address] [address] 04/01/2024 10:34:12 04/01/2024 15:21:50 Pain of left wrist 2514649762 27921 M25.532 Pain of right wrist 3169 494052 70710 M25.531 [id number] Britt Parra OTR/L, CHT Physical Therapy, [address] [address] 04/08/2024 10:25:32 04/08/2024 12:03:42 Pain of left wrist 8259503732 09124 M25.532 Pain of right wrist 3169 092660 24141 M25.531 [id number] Britt Parra OTR/L, CHT Physical Therapy, [address] [address] 04/15/2024 11:07:40 04/15/2024 15:34:08 Pain of left wrist 3456241711 29084 M25.532 Pain of right wrist 3169 564648 12754 M25.531 [id number] Britt Parra OTR/L, CHT Physical Therapy, [address] [address] 04/26/2024 11:00:57 04/27/2024 16:04:50 Pain of left wrist 0189957411 81272 M25.532 Pain of right wrist 3169 328157 43232 M25.531 [id number] Sejal Rodriguez MD , [facility], [address] [place] [address] 05/06/2024 08:46:09 05/11/2024 12:07:35 Amygdalolith 0071066 J35.8 no sign infection on exampt reassuredr equests ENT referral for evaluation of recurrent stones [id number] Maryam Diez DO , [facility], [address] [place] [address] 05/17/2024 12:00:28 05/20/2024 11:33:05 Sore throat 321553623 J02.9 difficulty visualizin g tonsils on exam, pt reports he has seen tonsil stones Acute otitis media 74126 03 H65.01 R AOMpt w/ allergies to PCN and cephalospo rins, had allergy testing confirming will tx with doxy x 1 weekshould feel improvemen t in ear pain/conge stion within 72 hrs on antibiotic tiffanie to resume methotrexa te after finishing course of doxy Rheumatoid arthritis 698 22572 M06.9 in care w/ rheumdecre asing methotrexa te dosetrial of humira after ear infection resolves [id number] Britt Parra , OTR/L, CHT Physical Therapy, [address] [address] 06/03/2024 11:07:37 06/06/2024 09:09:10 Pain of left wrist 6277628409 42470 M25.532 Pain of right wrist 3169 216136 11237 M25.531 [id number] Sejal Rodriguez MD , [facility], [address] [place] [address] 06/24/2024 08:57:49 06/28/2024 13:35:14 Lightheadedness 486686605 R42 possible pots-type orthostasi s vs hypoglycem iapt to track episodes, track eating/dri nking and activities leading up to eventwill review in 3 mosdiscuss ed keeping sugary candy and water with himeating well balanced snack every 2-3 hours Rheumatoid arthritis 698 62937 M06.9 in care w/ rheumtrial ing humira + methotrexa te, just started yesterday Eczema 97411428 L30.9 improved on methotrexa te Eating disorder 62235748 F50.9 hx arfid-type eating that has improvedwo rking w/ nutritioni st, seeing them next week Pain in axilla 782408844 M79.629 pt reporting swelling in R axillano tenderness , no lumps palpatedve ry mild asymmetry, possible difference in healing/sc ar tissue from top surgerydis cussed chest exams at well visit to palpate lymph nodes and tissue along scar line to screen for breast cancer [id number] Sejal Rodriguez MD , [facility], [address] [place] [address] 07/08/2024 08:35:33 07/08/2024 09:09:00 Plantar wart of left foot 5307299860 1570867 B07.0 pared down and treated with liquid nitrogenpt tolerated wellf/u 2 weeks for recheck Lightheadedness 06630595 8 R42 suspect due to reactive hypoglycem iapt to work on eating more regular snacks, higher protein meals History of eating disorder 5690939157 41609 Z86.59 hx arfid-type eating that has improved over the past 6 yearsworki ng w/ nutritioni st [id number] Carissa Sanchez MD , [facility], [address] [place] [address] 07/12/2024 11:58:10 07/13/2024 15:19:14 Acute otitis media 4903271 H65.01 early stages of R AOMpt w/ [...] course of doxy 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 consider referral to allergy and immunology for further discussion was previously in care w/ Mesha Rosenthal and she is now self-payha s appt w/ ENT end of [id number] Carissa Sanchez MD , [facility], [address] [place] [address] 07/19/2024 10:27:12 07/19/2024 11:11:05 Plantar wart of left foot 3093336112 6986218 B07.0 pared down and treated with liquid nitrogenpt tolerated wellf/u 2 weeks for recheck Apnea 2295208 R06.81 will order repeat sleep studyif inconclusi ve, consider mouth device through dentist Acute otitis media 07530 03 H65.01 improvingf inish doxyadvise d effusion can take 4-6 weeks to resolve [id number] Steven Kam MD , [facility], [address] [place] [address] 07/23/2024 11:13:46 07/23/2024 11:43:17 Dysfunction of right eustachian tube 4199757799 993870 H69.91 no infection- reassuredc /t flonaseadv ised 3-4 days of afrin then d/jose ENT appt next month- advised to call this week with forecasted weather may be able to take advantage of last minute cancellati onf/u prn [id number] Britt Parra , OTR/L, CHT Physical Therapy, [address] [address] 07/29/2024 10:08:33 08/01/2024 15:24:15 Pain of left wrist 0183372313 26388 M25.532 Pain of right wrist 3169 520652 22076 M25.531 [id number] Carissa Sanchez MD , [facility], [address] [place] [address] 07/29/2024 15:27:29 08/04/2024 12:58:17 Plantar wart of left foot 0710932891 1110177 B07.0 pared down and treated with liquid nitrogenpt tolerated wellf/u 2 weeks for recheck Dysfunctio n of eustachian tube 48613144 H69.90 can use flonaseadv ised can take 4-6 weeks for fluid to reabsorb after effusionha s ENT appt upcoming [id number] Carissa Sanchez MD , [facility], [address] [place] [address] 08/05/2024 12:05:31 08/05/2024 12:46:15 Plantar wart of left foot 9449026361 5656032 B07.0 pared down and treated with liquid nitrogenpt tolerated wellf/u 2 weeks for recheck Dysfunctio n of eustachian tube 46388556 H69.90 persistent throat pain, blocked feeling in ears after 2 ear infections has ENT appt upcoming Selective immunoglobulin A deficiency 667116208 D80.2 consider referral to allergy and immunology for further discussion , may be contributi ng to recurrent tonsil stones and ear infections was previously in care w/ Mesha Rosenthal and she is now self-payha s appt w/ ENT end of august Tonsillitis 74590828 J03 .90 recurrent tonsilitis vs tonsil stonesunab le to visualize tonsils on examencour aged frequent warm water gargles, chlorasept ic throat sprayrevie wed findings for peritonsil ar abscess/ba cterial infection - present to ER if sx present Patient immunocompromised 348055519 D84.9 due to immunosupp ressant meds Rheumatoid arthritis 698 22578 M06.9 seronegati ve RAin care w/ rheumtrial ing humira + methotrexa te Disorder o f connective tissue 917790322 M35.9 saw genetics and KR. neg for genetic markers for EDS but does have family hx. dx w/ undifferen tiated connective tissue d/o [id number] Carissa Sanchez MD , [facility], [address] [place] [address] 08/24/2024 13:42:06 08/24/2024 14:35:28 Plantar wart of left foot 9925287539 2762395 B07.0 pared down and treated with liquid nitrogenpt tolerated wellf/u 2 weeks for recheck Amygdalolith 5705316 J35 .8 referred to ENT for eval Epigastric pain 21000717 R10.13 possible gastritis/ pud from stress and post-norov irusdiscus sed importance of eating regular meals, stress management if sx persist, consider h pylori testing Folliculitis 30730581 L7 3.9 seems to be resolvingc an apply bacitracin topicallyf /u if worsening redness/te nderness [id number] Carissa Sanchez MD , [facility], [address] [place] [address] 09/09/2024 10:29:24 09/12/2024 20:36:09 Plantar wart of left foot 6981107878 4929425 B07.0 resolvedco ntinue w/ pumice stone as needed Amygdalolith 4246715 J35 .8 referred to ENT for eval Epigastric pain 11747590 R10.13 possible gastritis/ pud from stress and post-norov irusdiscus sed importance of eating regular meals, stress management Obstructiv e sleep apnea syndrome [id number] G47.33 recent sleep study consistent w/ hypo-apnea s, APAP recommende d, has f/u with sleep management in 2 mos Dysfunctio n of eustachian tube [id number] H69.90 persistent throat pain, blocked feeling in ears after 2 ear infections has ENT appt upcomingtr ial azelastine nasal spray and hydrocorti sone ear drops for chronic acute otitis externa [id number] Carissa Sanchez MD , [facility], [address] [place] [address] 10/07/2024 14:30:51 10/10/2024 11:13:04 Dysfunction of bilateral eustachian tubes [id number] H69.93 persistent throat pain, blocked feeling in ears after 2 ear infections has ENT appt upcoming in 2 mos Rheumatoid arthritis of multiple joints [id number] M06.09 seronegati ve RAin care w/ rheumtrial ing humira + methotrexa te Gastropare sis syndrome 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 mild per previous testing, possibly related to current sx Upper abdominal pain [phone] R10.10 suspect 2/2 norovirus, immunosupp ression, stress, recent antibiotic usewill r/o h pyloritria l d/c famotidine Health Concerns Section Related Observation LastModified by Organization Detai ls LastModified Time None Recorded Concern Status LastModified by Organization Details LastModified Time None Recorded Advance Directives Directive None Recorded Payers Encounter Date Sequence Insurance Name Policy Number Policy Martines Covered Member ID Martines Member ID Guarantor Name 07/29/2024 1 [place] [id number] Bigg J Katia [id number] Bigg J Katia 08/05/2024 1 [place] [id number] Bigg J Katia [id number] Bigg J Katia 08/24/2024 1 [place] [id number] Bigg J Katia [id number] Bigg J Katia 09/09/2024 1 [place] [id number] Bigg J Katia [id number] Bigg J Katia 10/07/2024 1 [place] [id number] Bigg Montalvo [id number] Bigg oMntalvo Notes Date Note Type Note Provider Name and Address Organization Details Recorded Time 07/29/2024 text/html 07/29/2024 planta r wart treatment ears still feeling blocked somewhat Macrina Ellison, FASTENER TECHNOLOGIST [address] [place], [address], [facility] [place] 07/29/2024 17:46:53 07/29/2024 text/html Physical Therapy History [...] hands 5/10 this week Duration:2 years Britt Parra, OTR/L, CHT [address] [place], [address], [facility] [place] 07/29/2024 15:02:00 08/05/2024 text/html Pt presenting fo r f/u [...] and fluid behind TMs started humira 06/23/24 OLIVIA Marks [address] [place], [address], [facility] [place] 08/05/2024 18:00:04 08/24/2024 text/html 08/24/24 - planta r wart follow up 1. folliculitis L thigh 2. tonsil stones 3. plantar wart 4. epigastric pain since norovirus, dec appetitestress w/ partner broken leg and surgery 2 weeks ago Macrina Ellison, OLIVIA [address] [place], [address], [facility] [place] 08/24/2024 15:57:42 09/09/2024 text/html 09/09/2024 - foll ow up / plantar wart seeing rheum every 3 mos OLIVIA Marsk [address] [place], [address], [facility] [place] 09/09/2024 11:59:42 10/07/2024 text/html chronic throat p ain x several mosdiscuss ADHDongoing stomach pain, discuss testing OLIVIA Marks [address] [place], [address], [facility] [place] 10/07/2024 17:50:25
[2024-11-01 18:11] LABS: MANUAL DIFF FLAG NO
[2024-11-01 18:27] LABS: Basophils Percent Auto 0.3 % (0-2); Eosinophils Absolute Auto 0.2 X10*3/uL (0.0-0.4); Eosinophils Percent Auto 2.4 % (0-4); Hematocrit 47.8 % (42.0-52.0); Imm Gran Abs Auto 0.03 X10*3/uL (0.00-0.03); Imm Gran Pct Auto 0.4 % (0.0-0.4); Lymphocytes Absolute Auto 1.2 X10*3/uL (1.2-4.9); Lymphocytes Percent Auto 16.7 % (20-40); Mean Corpuscular HGB Conc 33.5 g/dl (31.0-36.0); Mean Corpuscular Hemoglobin 29.6 pg (27.0-33.0); Mean Corpuscular Volume 88.5 fL (80.0-98.0); Mean Platelet Volume 10.2 fL (9.4-12.4); Monocytes Absolute Auto 0.7 X10*3/uL (0.1-1.2); Monocytes Percent Auto 8.9 % (2-11); Neutrophils Absolute Auto 5.3 x10*3/uL (2.0-8.3); Neutrophils Percent Auto 71.3 % (45-73); Platelet Count 298 X10*3/uL (160-400); Red Cell Distribution Width 13.2 % (11.0-16.0); White Blood Count 7.4 X10*3/uL (4.8-10.8)
[2024-11-01 18:37] LABS: Alanine Aminotransferase 38 U/L (0-40); Aspartate Amino Transferase 28 U/L (5-37); C Reactive Protein 0.34 mg/dL (< or = 0.50); Estimated Glomerular Filt Rate > 60
[2024-11-01 19:05] LABS: Erythrocyte Sedimentation Rate 2 MM/HR (0-15)
== END 2024-11-01 09:59 | disposition home or self-care (01) ==
LOC: HO.HKASLDS 09:58
PROVIDERS: PCP Registered Nurse; Visit Provider Internal Medicine Rheumatology
DX: Z79.899 Other long term (current) drug therapy (principal); Z79.60 Long term (current) use of unspecified immunomodulators and immunosuppressants
CPT/HCPCS: 36415; 82565; 84450; 84460; 85025; 85652; 86140

== ENCOUNTER 2025-01-31 10:07 | Outpatient (AMB) | payer BC, SELFPAY ==
--- NOTE | 2025-01-31 10:09 | A.OFFVIS_ITS ---
Vital Signs 01/31/25 10:13 Height 5 ft 4 in BP 160/60 H Blood Pressure Location Lt brachial Position Sitting Pulse 98 Pulse Source Pulse Oximeter Pulse Oximetry (%) 99 Oxygen Delivery Method Room Air Intake Visit Reasons: 3 months Intake Note: Patient presents today for RA follow up. Accompanied by: Self / Same As Patient Allergies cefaclor (From Ceclor) Allergy (Mild, Verified 08/09/24 10:05) Hives cefuroxime Allergy (Mild, Verified 08/09/24 10:05) Hives penicillin Allergy (Mild, Uncoded 05/10/24 11:15) Hives HPI HPI 3 months: Details: Last week he had morning stiffness lasting a half an hour involving his elbows. Prior flare in his hands resolved with prednisone course. He feels well. He is experiencing continued tonsillar stones but they are not as bothersome. He is now wearing a CPAP for diagnosis of sleep apnea, which has contributed to him having his mouth closed at night reducing soreness from tonsillar stones. no new joints are swollen. No recent infections PFSH Medical History Sleep apnea Family History Brother Mustapha-Danlos syndrome Social History Household Members: Spouse Housing: House Alcohol intake: never Patient Tobacco Use Status: Never used Tobacco Physical Exam Vital Signs: Last Vital Signs Pulse 98 01/31/25 10:13 BP 160/60 H 01/31/25 10:13 Pulse Ox 99 01/31/25 10:13 Oxygen Delivery Method Room Air 01/31/25 10:13 Const Other: General: Comfortable CVS: RRR Respiratory: clear to auscultation bilaterally. Good respiratory effort Skin: No lesions seen MSK: Right 1st MCP. No synovitis. full range of motion of upper extremities and lower extremity. No ankle or MTP tenderness. Assessment & Plan Assessment & Plan (1) Rheumatoid arthritis: Comment: In remission on current regimen. Rheumatology history: Seronegative inflammatory arthritis. He reports being diagnosed with eczema resolved on methotrexate. 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 MTX 12/2023- dose increased to 20 mg Q weekly caused tonsillar stones with infection. Methotrexate was then reduced to 15 mg once weekly 07/2024. Humira 06/23/2024- Code(s): M06.9 - Rheumatoid arthritis, unspecified Category: Medical Qualifiers: Rheumatoid arthritis location: multiple sites Rheumatoid factor presence: without rheumatoid factor Qualified Code(s): M06.09 - Rheumatoid arthritis without rheumatoid factor, multiple sites Plan: Continue Humira every other week continue methotrexate to 12.5 mg once weekly Labs for drug monitoring on high-risk medication ordered Immunization: Flu shot and COVID-19 vaccine recommend Return to clinic in 3 months (2) Other termite treater helper (current) drug therapy: Code(s): Z79.899 - Other termite treater helper (current) drug therapy Category: Medical Plan: See above Orders: Orders Complete Blood Count Auto Diff Today Z79.899 - Other termite treater helper (current) drug therapy Alanine Aminotransferase Today Z79.899 - Other termite treater helper (current) drug therapy Aspartate Amino Transferase Today Z79.899 - Other termite treater helper (current) drug therapy Creatinine Today Z79.899 - Other [facility]p (current) drug therapy C Reactive Protein Today Z79.899 - Other termite treater helper (current) drug therapy Erythrocyte Sedimentation Rate Today Z79.899 - Other [facility] (current) drug therapy Coding Level of Care Code Est Pt Level 4 (21954) Complex EM visit Add On G2211 Diagnoses Rheumatoid arthritis of multiple sites with negative rheumatoid factor M06.09 Rheumatoid arthritis location: multiple sites Rheumatoid factor presence: without rheumatoid factor Other mcfp (current) drug therapy Z79.899
[2025-01-31 10:13] VITALS: BP 160/60; PULSE 98; O2SAT 99
--- OUTSIDE RECORDS SUMMARY | 2025-01-31 11:22 | XMS_ITS | Encounter Summary ---
Author Organization [facility] Address [address] [facility] [address] [place] [address] Phone Care Team Providers Care Knowledge Manager Name Role Phone Brian Wood MD Unavailable Lisset Diez CONTROL CLERK FOOD AND BEVERAGE Primary Care Provider [phone] Carissa Love Unavailable Encounter Details Date Type Department Care Team (Late st Contact Info) Description 05/28/2022 Procedure [facility], Ct Scan - [address] [id number] Social History Tobacco Use Types Packs/Day Years Used Date Smoking Tobacco: Never Smokeless Tobacco: Never Alcohol Use Standard Drinks/Week Comments Not Currently 0 (1 standard drink = 0.6 oz pur e alcohol) Child or Family Care Answer Date Record ed Do you have problems with on e of the following making it difficult for you to work, study, or receive health care? No 04/12/2022 Education Answer Date Recorded Are you interested in help w ith more adult education (for example, completing high school, GED, job training, learning the [place] language, technical skills, or developing parenting skills)? No 04/12/2022 Food Answer Date Recorded Within the past 6 months we worried whether our food would run out before we got money to buy more. Never True 04/12/2022 Within the past 6 months the food we bought just didn't last and we didn't have enough money to get more. Never True Paying for Meds Answer Date Recorded Do you have trouble paying for medicines? No 04/12/2022 Paying Utility Bills Answer Date Record ed Do you have trouble paying your heating or elect ricity bill? No 04/12/2022 Transportation Answer Date Recorded Has the lack of transportati on kept you from medical appointments or from getting medications? No 04/12/2022 Unemployment Answer Date Recorded Are you currently unemployed or working on a part-time or temporary basis, and looking for work? No 04/12/2022 Comments Unknown Sex and Gender Information Value Date Recorded Sex Assigned at Female 05/28/2022 2:57 PM EST Legal Sex Male 9:01 PM EDT Gender Identity Male 11/28/2019 6:54 PM EDT Sexual Orientation Queer 05/28/2022 2: 57 PM EST documented as of this encounter Functional Status * Calculated C-SSRS Risk Score (Lifetime/Recent) Answer Date of Assessment Author No Risk Indicated 05/28/2022 2:54 PM EST Alanna Mejia RN * [place] Suicide Severity Rating Scale (Screener/Recent Self-Report) Question Answer Date of Assessment Author 1. Wish to be (Past 1 Month) No 05/28/2022 2:54 PM EST Alanna Mejia, WALT 2. Non-Specific Active Suici liu Thoughts (Past 1 Month) No 05/28/2022 2:54 PM EST Alanna Mejia, WALT 6. Suicidal Behavior (Lifetime) No 2:54 PM EST Alanna Mejia, WALT documented as of this encounter Plan of Treatment Scheduled Procedures Name Priority Associated Diagnoses Date/Ti me COLONOSCOPY Elevated fecal calprotectin documented as of this encounter Visit Diagnoses Not on filedocumented in this encounter Additional Health Concerns Infection Onset Date Last Indicated Resolved Time CoV-Risk 05/28/2022 05/28/2022 06/08/2022 1:22 AM EST Assessment Noted Time PHQ-2 Depression Total Score: 0 04/12/20 9:50 AM EDT documented as of this encounter Care Teams Knowledge Manager Relationship Specialty Start Date End Date Lisset Diez NP [address] [place] [address] PCP - General Family Medicine 02/13/22 Brian Wood MD [address] [place] [address] [email or web address] Consulting Provider Pulmonary Disease 02/02/20 Carissa Love FNP [address] [place] [address] [email or web address] Consulting Provider Nurse Practitioner 04/14/23 documented as of this encounter Additional Source Comments The information contained in this document represents components of the legal health record. It is not the complete legal health record.[facility]
--- OUTSIDE RECORDS SUMMARY | 2025-01-31 11:22 | XMS_ITS | Clinical Summary ---
Author Organization [facility] Address [address] [place] [address] Care Team Providers Care Compressed Gases Tester Name Role Phone Lisset Diez DIRECTOR OF FOOD AND NUTRITION Primary Care Provider [phone] Allergies Active Allergy Reactions Criticality Noted Date [...] Social Drivers of Health Annual Screening 06/15/2024 Influenza Vaccine (#1) 2025 4, 04/01/2023, 03/27/2023, Additional history exists DTaP,Tdap,and Td Vaccines (9 - Td or [...] BCBS OUT OF STATE PPO Care Teams Compressed Gases Tester Relationship Specialty Start Date End Date Lisset Diez NP [address] [place] [address] PCP - General 11/11/22
--- OUTSIDE RECORDS SUMMARY | 2025-01-31 11:22 | XMS_ITS | Clinical Summary ---
[facility] [place] [address] Care Team Providers Care Mother'S Helper Name Role Phone Unavailable Primary Care Provider Unavailabl e Social History Tobacco Use Types Packs/Day Years Used Date Smoking Tobacco: Never Assessed Sex and Gender Information Value Date Recorded Sex Assigned at Not on file Legal Sex Male 1:14 PM EDT Gender Identity Not on file Sexual Orientation Not on file Plan of Treatment Health Maintenance Due Date Last Done Comments HIV screen 2009 Hepatitis C Screening 2009 Hepatitis B vaccine (0-59 yrs) and Risk (1) 2010 Tetanus/Diphtheria/Pertussis Vaccines (1 - Tdap) 04/19 Covid-19 Vaccine ( - season) 2024 Influenza (Flu) vaccine (1 o f 1 - Influenza standard series) 02/13/2025 Insurance [facility] OOS
--- OUTSIDE RECORDS SUMMARY | 2025-01-31 11:22 | XMS_ITS | Clinical Summary ---
Author Organization [facility] Address [address] [facility] [address] [place] [address] Care Team Providers Care Radio Communications Mechanician Name Role Phone Micky Suárez MD Unavailable [phone] Allergies Active Allergy Reactions Criticality Noted [...] Gastroesophageal reflux disease 05/28/2022 Endocrine disorder in cyifek-me-ftjp transgender person 05/28/2022 Pseudotumor cerebri 09/18/2020 Multiple [...] AM EST Pulse - - Temperature 36.5 C (97.7 F) 06/22/2023 9:08 AM EST Respiratory Rate - - Oxygen Saturation - - Inhaled Oxygen Concentration - - Weight - - Height - - Body Mass Index - - Plan of Treatment Health Maintenance Due Date Last Done Comments Depression Screening 1991 SDOH Screening 1991 Disability Screening 1991 Alcohol/Substance Use Screening 2003 Tobacco Screening 2003 Family Planning (PISQ) 2006 Hepatitis C Screening 2009 Pap Smear 2012 Cervical Cancer Screening 2021 HPV/Cotest 2021 COVID-19 Vaccine ( season) 2024 03/27/2023, 02/28/2022, 04/26/2021, Additional history exists Influenza Vaccine (#1) 2025 , 02/28/2022, 04/26/2021, Additional history exists DTaP/Tdap/Td [...] 04 HPV Vaccines Completed 03/18/2007, 10/14, 08/31/2006 HIV Screening Completed 05/28/2022 Meningococcal B Vaccine Aged Out No l onger eligible based on patient's age to complete this topic Pneumococcal Vaccine: Pediatrics (0 to 5 Years) and At-Risk Patients (6 to 49) Years Aged Out No longer eligible based on patient's age to complete this topic RSV under 20 months Aged Out No longe r eligible based on patient's age to complete this topic Rotavirus Vaccines Aged Out No longer eligible based on patient's age to complete this topic Insurance EYE MED BCBS OUT OF STATE Care Teams Radio Communications Mechanician Relationship Specialty Start Date End Date Micky Suárez MD [address] [place] [address] Neurology 05/28/22 [place] [id number] [phone] Primary Care Provider 06/08/23
--- OUTSIDE RECORDS SUMMARY | 2025-01-31 11:22 | XMS_ITS | Patient Health Record ---
Author Organization [facility] Address [address] [place] [address] Care Team Providers Care Automotive General Manager Name Role Phone Lisset Diez N.P. Primary Care Provider Steven Dunaway [phone] Allergies Allergen (clinical drug ingredient) Drug/Non Drug [...] Problem Status W/U Status Risk Notes Problem [id number] Nausea (R11.0) Active confirmed Problem [id number] Early satiety (R68.81) Active confirmed Problem [id number] Gastroesophageal reflux disease without esophagitis (K21.9) Active confirmed Plan Of Treatment Pending Test Test Name Order Date XR BARIUM SWALLOW-ESOPHAGUS 07/22/2022 XR GI SERIES 07/22/2022 Insurance Providers Payer Name Payer Address Payer Phone Subscriber Number Group Number Insured Name Patient Relationship to Insured Coverage Start Date Coverage End Date [facility] [address] [place] [address] [id number] EDEN IRVIN Self - patient is the insured Medical (General) History Medical History History ICD Code Transitioning female to male with apparent breast removal with the below surgery, as well as reported hormone replacement Kidney stone in past Denies MA,DM,CVA,Lung disease,renal dise ase EGD 2018 at [facility] ealed mild esophagitis and no hiatal hernia. Biopsies were negative for celiac disease and H. pylori. EGD in 2020 described no sign of esophagitis or hiatal hernia. Negative colonoscopy in 2018. Negative CT scan of abdomen. Followed by store lead jun o feels that his nocturnal symptoms of nausea and fever related to internal aspiration from reflux He is scheduled for a 48 pat r pH study and esophageal motility study in July of 2021 Surgical History Surgery Date(Month/Year) Chest surgery for his male transition [place] teeth extraction
== END 2025-01-31 10:32 | disposition home or self-care (01) ==
LOC: HO.RHES 10:07
PROVIDERS: PCP Registered Nurse; Visit Provider Internal Medicine Rheumatology
DX: M06.09 Rheumatoid arthritis without rheumatoid factor, multiple sites (principal); Z79.899 Other long term (current) drug therapy
CPT/HCPCS: 99214

== ENCOUNTER 2025-01-31 10:07 | Outpatient (REF) | payer BC, SELFPAY ==
[2025-01-31 13:04] LABS: MANUAL DIFF FLAG NO
[2025-01-31 13:28] LABS: Hematocrit 49.5 % (42.0-52.0); Hemoglobin 16.7 g/dl (14.0-18.0); Imm Gran Abs Auto 0.02 X10*3/uL (0.00-0.03); Imm Gran Pct Auto 0.3 % (0.0-0.4); Lymphocytes Absolute Auto 1.1 X10*3/uL (1.2-4.9); Mean Corpuscular HGB Conc 33.7 g/dl (31.0-36.0); Mean Corpuscular Hemoglobin 29.2 pg (27.0-33.0); Mean Corpuscular Volume 86.5 fL (80.0-98.0); NRBC Abs Auto 0.000 X10*3/uL (0.0-0.012); NRBC Pct Auto 0.0 /100WBC (0.0-0.2); Platelet Count 262 X10*3/uL (160-400); Red Blood Count 5.72 X10*6/uL (4.60-5.80); White Blood Count 7.2 X10*3/uL (4.8-10.8)
[2025-01-31 13:38] LABS: Alanine Aminotransferase 59 U/L (0-40); Aspartate Amino Transferase 32 U/L (5-37); Estimated Glomerular Filt Rate > 60
== END 2025-01-31 10:08 | disposition home or self-care (01) ==
LOC: HO.HKASLDS 10:07
PROVIDERS: PCP Registered Nurse; Visit Provider Internal Medicine Rheumatology
DX: M06.09 Rheumatoid arthritis without rheumatoid factor, multiple sites (principal); Z79.631 Long term (current) use of antimetabolite agent; Z79.899 Other long term (current) drug therapy
CPT/HCPCS: 36415; 82565; 84450; 84460; 85025; 85652; 86140